=== PATIENT | male | born 1970 | race Caucasian/White ===

== ENCOUNTER 2016-08-22 05:34 | Emergency (ER) | payer OTHER ==
[2016-08-22 05:57] VITALS: TEMP 97.7
--- NOTE | 2016-08-22 06:03 | ED ---
General Adult HPI - General Chief complaint: Head Injury Stated complaint: Head Injury/IHS Time Seen by Provider: 08/22/16 05:48 Source: patient, RN notes reviewed Mode of arrival: ambulatory Limitations: no limitations - History of Present Illness Initial comments: Patient is a pleasant 45-year-old male presenting to the emergency department following head injury. Incident occurred today at work. 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 Patient states he did strike his head quite hard. Patient states he has had some blurry/double vision since that time. Patient states he does feel slightly confused and had difficulty remembering the medication that he took. No isolated area of weakness. Patient did not pass out. No vomiting. Patient does have a mild headache still. Patient states his neck was somewhat uncomfortable on the side however that is mild at this time. - Related Data Home Medications Medication Instructions Recorded Confirmed Atorvastatin Calcium [Lipitor] 20 mg PO HS 08/22/16 08/22/16 Allergies Allergy/AdvReac Type Severity Reaction Status Date / Time No Known Allergies Allergy Verified 08/22/16 05:57 Review of Systems ROS Statement: Those systems with pertinent positive or pertinent negative responses have been documented in the HPI. ROS Other: All systems not noted in ROS Statement are negative. Constitutional: Denies: fever Eyes: Reports: vision change. Denies: eye pain ENT: Denies: ear pain Respiratory: Denies: dyspnea Cardiovascular: Denies: chest pain Endocrine: Denies: fatigue Gastrointestinal: Denies: abdominal pain Genitourinary: Denies: dysuria Musculoskeletal: Denies: back pain Skin: Denies: rash Neurological: Reports: headache. 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 Absent: nystagmus ENT exam: Present: normal oropharynx Neck exam: Present: normal inspection. Absent: tenderness Respiratory exam: Present: normal lung sounds bilaterally Cardiovascular Exam: Present: regular rate, normal rhythm GI/Abdominal exam: Present: soft. Absent: tenderness Extremities exam: Present: normal inspection Neurological exam: Present: alert, CN II-XII intact. Absent: motor sensory deficit Expanded Speech: Present: fluid speech Cranial nerves: EOM's Intact: Normal, Facial Sensation: Normal Sensory exam: Upper Extremity Light Touch: Normal, Lower Extremity Light Touch: Normal Motor strength exam: RUE: 5, LUE: 5, RLE: 5, LLE: 5 Eye Response: (4) open spontaneously Motor Response: (6) obeys commands Verbal Response: (5) oriented Psychiatric exam: Present: normal affect, normal mood Skin exam: Present: normal color Course Vital Signs 08/22/16 05:40 Temperature 97.7 F Pulse Rate 69 Respiratory 18 Rate Blood Pressure 139/75 O2 Sat by Pulse 97 Oximetry Medical Decision Making - Medical Decision Making Patient reevaluated and resting comfortably sitting up in bed. Patient updated on results and need for follow-up. Patient also advised to follow-up with neurology if symptoms continue. Patient advised not to work until released by follow-up physician. - Radiology Data Radiology results: image reviewed (Computed tomography scan of the brain shows no acute process) Disposition Clinical Impression: Concussion Disposition: HOME SELF-CARE Condition: Stable Instructions: Concussion (ED) Additional Instructions: Please follow-up with industrial health services unless otherwise advised by employer. Please also follow-up with neurologist. [id number] Tylenol as needed. No work until released by follow-up physician. Return for increased pain, worsening vision, confusion weakness, loss of vision, speech problems, coordination problems, worsening symptoms or other concerns. Referrals: Jerome Cummings DO [Primary Care Provider] - 1-2 days Time of Disposition: 06:53
--- NOTE | 2016-08-22 06:42 | CT ---
EXAM: CT Head Without Intravenous Contrast. CLINICAL HISTORY: Reason: trauma TECHNIQUE: Axial computed tomography images of the head/brain without intravenous contrast. CTDI is 60.3 mGy and DLP is 1144.7 mGy-cm This CT exam was performed using one or more of the following dose reduction techniques: automated exposure control, adjustment of the mA and/or kV according to patient size, and/or use of iterative reconstruction technique. COMPARISON: No relevant prior studies available. FINDINGS: Brain: Unremarkable. No hemorrhage. No significant white matter disease. No edema. Ventricles: Unremarkable. No ventriculomegaly. Bones: No acute fracture. Sinuses: Unremarkable as visualized. No acute sinusitis. Mastoid air cells: Unremarkable as visualized. No mastoid effusion. IMPRESSION: Normal head/brain.
--- NOTE | 2016-08-22 06:56 | ED ---
Medical Decision Making - Medical Decision Making Additional paper work from [employer] filled out. Disposition Clinical Impression: Concussion Disposition: HOME SELF-CARE Condition: Stable Instructions: Concussion (ED) Additional Instructions: Please follow-up with industrial health services unless otherwise advised by employer. Please also follow-up with neurologist. [id number] Tylenol as needed. No work until released by follow-up physician. Return for increased pain, worsening vision, confusion weakness, loss of vision, speech problems, coordination problems, worsening symptoms or other concerns. Referrals: Jerome Cummings DO [Primary Care Provider] - 1-2 days Antionette Polanco MD [STAFF PHYSICIAN] - 1-2 days
[2016-08-22 07:20] VITALS: BP 139/71; PULSE 73; RESP 16
== END 2016-08-22 07:20 | disposition home or self-care (01) ==
LOC: EC 05:34
DX: S06.0X0A Concussion without loss of consciousness, initial encounter (principal); E78.5 Hyperlipidemia, unspecified; I10 Essential (primary) hypertension; F17.200 Nicotine dependence, unspecified, uncomplicated; Z79.899 Other long term (current) drug therapy; W22.09XA Striking against other stationary object, initial encounter; Y92.69 Other specified industrial and construction area as the place of occurrence of the external cause; Y99.0 Civilian activity done for income or pay
CPT/HCPCS: 70450; 99283

== ENCOUNTER 2017-05-07 16:30 | Observation (INO) | payer BC ==
[2017-05-07] MEDS ORDERED: KETOROLAC 30 MG/ML 1 ML VIAL IVP STA (17:58)
[2017-05-07] MEDS ORDERED: ASPIRIN 81 MG PO STA (17:58)
--- NOTE | 2017-05-07 18:06 | ED ---
Chest Pain HPI - General Chief Complaint: Chest Pain Stated Complaint: Chest Pain Time Seen by Provider: 05/07/17 17:46 Source: patient, RN notes reviewed Mode of arrival: wheelchair Limitations: no limitations - History of Present Illness Initial Comments: This is a 38-year-old male with a history of smoking he smokes 3 packs a day now he smokes one quarter of a pack per day who does take a daily aspirin and I was no known heart or lung disease who does have a family history her brother at the age of 62 and his family was in the 70s who states she's had chest pain which started today right sided midsternal sharp in nature it was 9/10 in severity currently is 3/10 and does tend to come and go vision states it did start when he was walking at work today. He does not recall anything he may have hurt his chest and no nausea no vomiting fevers chills sweats cough sputum production. No other constitutional symptoms. MD Complaint: chest pain - Related Data Home Medications Medication Instructions Recorded Confirmed Cetirizine HCl [Zyrtec] 10 mg PO DAILY 05/07/17 05/07/17 Divalproex ER [Depakote ER] 1,000 mg PO HS 05/07/17 05/07/17 Fluticasone Nasal [place] [Flonase 1 spray EA NOSTRIL BID 05/07/17 05/07/17 Nasal [place]] Ibuprofen [Motrin] 800 mg PO TID PRN 05/07/17 05/07/17 Lidocaine 4% Cream [Lmx 4] 1 applic TOPICAL DAILY PRN 05/07/17 05/07/17 Lisinopril-Hctz 20-25 mg 1 tab PO DAILY 05/07/17 05/07/17 [Zestoretic 20-25] Loperamide [Imodium] 2 - 4 mg PO QID PRN 05/07/17 05/07/17 Omeprazole [PriLOSEC] 40 mg PO BID 05/07/17 05/07/17 Pregabalin [Lyrica] 150 mg PO BID 05/07/17 05/07/17 Propranolol HCl [Propranolol HCl 120 mg PO DAILY 05/07/17 05/07/17 ER] Sertraline [Zoloft] 150 mg PO DAILY 05/07/17 05/07/17 Simvastatin 40 mg PO HS 05/07/17 05/07/17 Sodium Bic Otc(Unknown Dose) 2 tab PO BID 05/07/17 05/07/17 Tiotropium 18 Mcg/Puff [Spiriva] 1 cap INHALATION RT-DAILY 05/07/17 05/07/17 buPROPion HCL [Wellbutrin SR] 150 mg PO BID 05/07/17 05/07/17 traMADol HCL [Ultram] 50 mg PO Q8H PRN 05/07/17 05/07/17 Allergies Allergy/AdvReac Type Severity Reaction Status Date / Time No Known Allergies Allergy Verified 05/07/17 17:34 Review of Systems ROS Statement: Those systems with pertinent positive or pertinent negative responses have been documented in the HPI. ROS Other: All systems not noted in ROS Statement are negative. 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 History of Any Multi-Drug Resistant Organisms: None Reported Past Surgical History: Cholecystectomy Additional Past Surgical History / Comment(s): vasectomy, tubes in ears as an adult, carpel tunnel Past Psychological History: Anxiety, Depression, PTSD Smoking Status: Current every day smoker Past Alcohol Use History: Occasional Past Drug Use History: None Reported General Exam - General Exam Comments Initial Comments: This is a well-developed well-nourished awake alert oriented times 3 male Limitations: no limitations General appearance: alert, in no apparent distress Head exam: Present: atraumatic, normocephalic, normal inspection Eye exam: Present: normal appearance, PERRL, EOMI. Absent: scleral icterus, conjunctival injection, periorbital swelling ENT exam: Present: normal exam, mucous membranes moist Neck exam: Present: normal inspection. Absent: tenderness, meningismus, lymphadenopathy Respiratory exam: Present: normal lung sounds bilaterally, chest wall tenderness (Reproducible tenderness palpation along the right costochondral margin to the mid and lower anterior chest wall). Absent: respiratory distress , wheezes, rales, rhonchi, stridor Cardiovascular Exam: Present: regular rate, normal rhythm, normal heart sounds. Absent: systolic murmur, diastolic murmur, rubs, gallop, clicks GI/Abdominal exam: Present: soft, normal bowel sounds. Absent: distended, tenderness, guarding, rebound, rigid Extremities exam: Present: normal inspection, full ROM, normal capillary refill. Absent: tenderness, pedal edema, joint swelling, calf tenderness Back exam: Present: normal inspection Neurological exam: Present: alert, oriented X3, CN II-XII intact Psychiatric exam: Present: normal affect, normal mood Skin exam: Present: warm, dry, intact, normal color. Absent: rash Course Vital Signs 05/07/17 05/07/17 05/07/17 16:36 17:38 19:36 Temperature 98.2 F Pulse Rate 68 82 62 Respiratory 18 17 18 Rate Blood Pressure 129/79 134/89 142/71 O2 Sat by Pulse 98 95 97 Oximetry 05/07/17 05/07/17 19:44 21:20 Temperature Pulse Rate 70 62 Respiratory 18 18 Rate Blood Pressure 143/61 122/65 O2 Sat by Pulse 97 97 Oximetry Chest Pain MDM - MDM Patient got no relief from Toradol and from nitroglycerin were after a while he was feeling improved is reproducible pain though due to the patient's history he 'll be admitted for evaluation for chest pain. Disposition Clinical Impression: Chest pain, Chest wall syndrome Disposition: ADMITTED IP TO THIS [facility] Condition: Stable Referrals: Jerome Cummings DO [Primary Care Provider] - 1-2 days
[2017-05-07 18:26] LABS: ALT 34 U/L (21-72); AST 25 U/L (17-59); Albumin 4.1 g/dL (3.5-5.0); Alkaline Phosphatase 64 U/L (38-126); Amylase 48 U/L (30-110); Anion Gap 9 mmol/L; Blood Urea Nitrogen 13 mg/dL (9-20); Calcium 9.5 mg/dL (8.4-10.2); Carbon Dioxide 27 mmol/L (22-30); Chloride 102 mmol/L (98-107); Glucose 78 mg/dL (74-99); Lipase 85 U/L (23-300); Magnesium 1.9 mg/dL (1.6-2.3); Potassium 4.4 mmol/L (3.5-5.1); Sodium 138 mmol/L (137-145); Total Bilirubin 0.3 mg/dL (0.2-1.3)
[2017-05-07 18:30] LABS: Creatine Kinase 54 U/L (55-170)
[2017-05-07 18:31] LABS: Basophils % (A) 1 %; Eosinophils % (A) 2 %; HCT 40.6 % (39.0-53.0); HGB 14.4 gm/dL (13.0-17.5); Lymphocytes % (A) 46 %; MCH 30.8 pg (25.0-35.0); MCHC 35.5 g/dL (31.0-37.0); MCV 86.6 fL (80.0-100.0); Mean Platelet Volume 6.8; Monocytes % (A) 6 %; Neutrophils # (A) 2.8 k/uL (1.3-7.7); Neutrophils % (A) 43 %; Platelet Count 241 k/uL (150-450); RBC 4.69 m/uL (4.30-5.90); RDW 12.8 % (11.5-15.5); WBC 6.6 k/uL (3.8-10.6)
[2017-05-07 18:32] LABS: Basophils # (A) 0.1 k/uL (0-0.2); D-Dimer 0.49 mg/L FEU (<0.60); Eosinophils # (A) 0.1 k/uL (0-0.7); Monocytes # (A) 0.4 k/uL (0-1.0); Partial Thromboplastin Time 25.7 sec (22.0-30.0); Prothrombin Time 10.1 sec (9.0-12.0)
[2017-05-07 18:43] LABS: Creatine Kinase MB <0.2 ng/mL (0.0-2.4); Troponin I <0.012 ng/mL (0.000-0.034)
--- NOTE | 2017-05-07 18:48 | XR ---
EXAMINATION TYPE: XR chest 2V DATE OF EXAM: 05/07/2017 COMPARISON: NONE HISTORY: Chest pain TECHNIQUE: Frontal and lateral views of the chest are obtained. FINDINGS: Heart and mediastinum are normal. There are small linear density at the left lung base. Th e other lung gold are clear. There are chest leads. Bony thorax is intact. IMPRESSION: Scarring or subsegmental atelectasis at the left lung base. Normal heart.
[2017-05-07] MEDS ORDERED: NITROGLYCERIN SL TABS 0.4 MG TAB SUBLINGUAL PRN ×2 (19:27→22:14)
[2017-05-07] MEDS ORDERED: HEPARIN SODIUM,PORCINE 5,000 UNIT/ML 1 ML VIAL IV ONE (22:14)
[2017-05-07] MEDS ORDERED: HEPARIN SOD,PORK IN 0.45% NACL 25,000 UNIT in 0.45% NACL 1 500ML.BAG IV SCH (22:15)
[2017-05-07] MEDS ORDERED: IBUPROFEN 800 MG TAB PO PRN (22:17)
[2017-05-07] MEDS ORDERED: traMADol 50 MG TAB PO PRN (22:17)
[2017-05-07] MEDS ORDERED: LIDOCAINE 4% CREAM 5 GM TUBE TOPICAL PRN (22:17)
[2017-05-07] MEDS: SODIUM CHLORIDE 0.9% 1,000 ML IV SCH (23:01)
[2017-05-08 00:59] LABS: Creatine Kinase 46 U/L (55-170)
[2017-05-08 01:12] LABS: Creatine Kinase MB <0.2 ng/mL (0.0-2.4); Troponin I <0.012 ng/mL (0.000-0.034)
[2017-05-08 06:06] LABS: Cholesterol 224 mg/dL (<200); HDL Cholesterol 29 mg/dL (40-60)
[2017-05-08 06:16] LABS: Creatine Kinase 42 U/L (55-170)
[2017-05-08 06:30] LABS: Creatine Kinase MB <0.2 ng/mL (0.0-2.4); Troponin I <0.012 ng/mL (0.000-0.034)
[2017-05-08 06:38] LABS: Triglycerides 837 mg/dL (<150)
[2017-05-08] MEDS: LISINOPRIL-HCTZ 20-25 MG 1 EACH TAB PO SCH (08:23)
[2017-05-08] MEDS: buPROPion SR 150 MG TABLET.ER PO SCH ×2 (08:23→20:08)
[2017-05-08] MEDS: PROPRANOLOL LA 60 MG CAP.SA.24H PO SCH (08:24)
[2017-05-08] MEDS: LORATADINE 10 MG TAB PO SCH (08:24)
[2017-05-08] MEDS: PANTOPRAZOLE 40 MG TABLET PO SCH ×2 (08:24→20:08)
[2017-05-08] MEDS: SERTRALINE 50 MG TAB PO SCH (08:24)
[2017-05-08] MEDS: [UNRECOGNIZED DRUG - OTHER] PO SCH ×2 (08:32→20:12)
[2017-05-08] MEDS: FLUTICASONE 50MCG/SPRAY NASAL 16GM EA NOSTRIL SCH ×2 (08:32→20:12)
[2017-05-08] MEDS: PREGABALIN 75 MG CAP PO SCH ×2 (08:58→20:08)
[2017-05-08] MEDS ORDERED: ASPIRIN 325 MG TAB PO SCH (09:00)
[2017-05-08] MEDS: IPRATROPIUM 0.5 MG/2.5 ML NEBU INHALATION SCH ×4 (09:06→21:33)
--- NOTE | 2017-05-08 14:32 | P.CRDCN ---
History of Present Illness Consult date: 05/08/17 History of present illness: Mr. Campbell is a pleasant 46-year-old male past medical history significant for hypertension, COPD, dyslipidemia, diabetes mellitus, gastroesophageal reflux disease, chronic tobacco use and morbid obesity. He has significant family history of heart disease with his father, and 2 brothers from heart disease. He denies personal history of CAD. He states he underwent cardiac catheterization in 2005 that was essentially normal with no angioplasty required at that time. Yesterday while at work he walked in from outside, sat down at the desk and had an acute sharp/stabbing pain to the right anterior chest/upper abdomen with no radiation to arm, back, neck or jaw. He had shortness of breath and was mildly light headed as well. He denies associated palpitations, nausea, vomiting or diaphoresis. On exam he is tender to the right upper quadrant of his abdomen and the pain is reproducible to the chest. He had his gallbladder removed. He can specify no aggravating or alleviating factors. The pain persisted until he came to the hospital and is still going on intermittently. EKG on arrival reveals sinus mechanism with no acute ST or T-wave abnormalities. Chest xray reveals no acute cardiopulmonary process with atelectasis at the left lung base. He complains of chronic dry cough. Laboratory data reviewed, hemoglobin 14.4, platelets 241, d-dimer negative, potassium 4.4, magnesium 1.9, creatinine 0.7, cardiac enzymes negative 3. Lipid panel unable to be calculated secondary to triglycerides being 837. Patient states he is noncompliant with his atorvastatin. Current cardiac medications include simvastatin 40 mg daily, propanolol 100 mg daily and lisinopril/HCTZ 20/25 mg daily. Review of Systems At the time my exam: CONSTITUTIONAL: Denies fever. Denies chills. EYES: Denies blurred vision. Denies vision changes. Denies eye pain. EARS, NOSE, MOUTH & THROAT: Denies headache. Denies sore throat. Denies ear pain. CARDIOVASCULAR: Complains of right anterior chest pain. Denies shortness of breath. Denies orthopnea. Denies PND. Denies palpitations. RESPIRATORY: Denies cough. GASTROINTESTINAL: Complains of right upper quadrant abdominal pain. Denies diarrhea. Denies constipation. Denies nausea. Denies vomiting. MUSCULOSKELETAL: Denies myalgias. INTEGUMENTARY: Denies pruitis. Denies rash. NEUROLOGIC: Denies numbness. Denies tingling. Denies weakness. PSYCHIATRIC: Denies anxiety. Denies depression. ENDOCRINE: Denies fatigue. Denies weight change. Denies polydipsia. Denies polyurina. GENITOURINARY: Denies burning, hematuria or urgency with micturation. HEMATOLOGIC: Denies history of anemia. Denies bleeding. 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 History of Any Multi-Drug Resistant Organisms: None Reported Past Surgical History: Cholecystectomy, Ear Surgery, Heart Catheterization, Orthopedic Surgery Additional Past Surgical History / Comment(s): 2006 cardiac cath-treated with medication, bilateral myringotomy/tubes which have fallen out, L carpal tunnel release, vasectomy.l Past Anesthesia/Blood Transfusion Reactions: No Reported Reaction Smoking Status: Current every day smoker - Past Family History Father Family Medical History: Coronary Artery Disease (CAD), Myocardial Infarction (SC ) Additional Family Medical History / Comment(s): Father at the age of 78yrs from his AICD/pacer failing. He had had a SC at the age of 72yrs. Mother Family Medical History: COPD, Respiratory Disorder Additional Family Medical History / Comment(s): Mother had severe COPD. She was a heavy smoker. She used home oxygen. She at the age of 88yrs. Medications and Allergies Home Medications Medication Instructions Recorded Confirmed Type Cetirizine HCl [Zyrtec] 10 mg PO DAILY 05/07/17 05/07/17 History Divalproex ER [Depakote ER] 1,000 mg PO HS 05/07/17 05/07/17 History Fluticasone Nasal [place] [Flonase 1 spray EA NOSTRIL BID 05/07/17 05/07/17 History Nasal [place]] Ibuprofen [Motrin] 800 mg PO TID PRN 05/07/17 05/07/17 History Lidocaine 4% Cream [Lmx 4] 1 applic TOPICAL DAILY PRN 05/07/17 05/07/17 History Lisinopril-Hctz 20-25 mg 1 tab PO DAILY 05/07/17 05/07/17 History [Zestoretic 20-25] Loperamide [Imodium] 2 - 4 mg PO QID PRN 05/07/17 05/07/17 History Omeprazole [PriLOSEC] 40 mg PO BID 05/07/17 05/07/17 History Pregabalin [Lyrica] 150 mg PO BID 05/07/17 05/07/17 History Propranolol HCl [Propranolol HCl 120 mg PO DAILY 05/07/17 05/07/17 History ER] Sertraline [Zoloft] 150 mg PO DAILY 05/07/17 05/07/17 History Simvastatin 40 mg PO HS 05/07/17 05/07/17 History Sodium Bic Otc(Unknown Dose) 2 tab PO BID 05/07/17 05/07/17 History Tiotropium 18 Mcg/Puff [Spiriva] 1 cap INHALATION RT-DAILY 05/07/17 05/07/17 History buPROPion HCL [Wellbutrin SR] 150 mg PO BID 05/07/17 05/07/17 History traMADol HCL [Ultram] 50 mg PO Q8H PRN 05/07/17 05/07/17 History Allergies Allergy/AdvReac Type Severity Reaction Status Date / Time No Known Allergies Allergy Verified 05/07/17 17:34 Physical Exam Vitals: Vital Signs Temp Pulse Resp BP Pulse Ox 05/08/17 09:14 65 05/08/17 09:08 63 05/08/17 08:15 63 16 125/60 95 05/08/17 06:42 62 20 119/61 94 L 05/08/17 03:00 60 18 104/69 93 L 05/07/17 23:05 67 18 131/66 97 05/07/17 21:20 62 18 122/65 97 05/07/17 19:44 70 18 143/61 97 05/07/17 19:36 62 18 142/71 97 05/07/17 17:38 82 17 134/89 95 05/07/17 16:36 98.2 F 68 18 129/79 98 Intake and Output 05/07/17 05/08/17 05/08/17 22:59 06:59 14:59 Intake Total 187.535 Balance 187.535 Intake: Intake, IV Titration 187.535 Amount Heparin Sod,Pork in 0.45% 187.535 NaCl 25,000 unit In 0.45 % NaCl 1 500ml.bag @ 8.4 UNITS/KG/HR 19.81 mls/hr IV .Q24H [facility] Rx#: [id number] Other: Weight 117.934 kg Blood pressure 125/60 heart rate 63 afebrile GENERAL: This is a 46-year-old male in no apparent distress at the time of my examination. Obese. HEENT: Head is atraumatic, normocephalic. Pupils are equal, round. Sclerae anicteric. Conjunctivae are clear. Mucous membranes of the mouth are moist. Neck is supple. There is no jugular venous distention. No carotid bruit is heard. LUNGS: Clear to auscultation no wheezes, rales or rhonchi. No chest wall tenderness is noted on palpation or with deep breathing. HEART: Regular rate and rhythm without murmurs, rubs or gallops. S1 and S2 heard. ABDOMEN: Soft, nontender. Bowel sounds are heard. No organomegaly noted. EXTREMITIES: Trace less than 1+ bilateral edema and no calf tenderness noted. VASCULAR: Radial and dorsalis pedis pulses palpated, no evidence of clubbing. NEUROLOGIC: Patient is awake, alert and oriented x3. Results 05/07/17 17:45 05/07/17 17:45 Cardiac Enzymes 05/07/17 05/07/17 05/07/17 Range/Units 17:45 17:45 23:54 AST 25 (17-59) U/L CK-MB (CK-2) <0.2 <0.2 (0.0-2.4) ng/mL Troponin I <0.012 <0.012 (0.000-0.034) ng/mL 05/08/17 Range/Units 05:20 AST (17-59) U/L CK-MB (CK-2) <0.2 (0.0-2.4) ng/mL Troponin I <0.012 (0.000-0.034) ng/mL Coagulation 05/07/17 05/08/17 Range/Units 17:45 07:32 PT 10.1 (9.0-12.0) sec APTT 25.7 31.6 H (22.0-30.0) sec Lipids 05/08/17 Range/Units 05:20 Triglycerides 837 H (<150) mg/dL Cholesterol 224 H (<200) mg/dL HDL Cholesterol 29 L (40-60) mg/dL CBC 05/07/17 Range/Units 17:45 WBC 6.6 (3.8-10.6) k/uL RBC 4.69 (4.30-5.90) m/uL Hgb 14.4 (13.0-17.5) gm/dL Hct 40.6 (39.0-53.0) % Plt Count 241 (150-450) k/uL Comprehensive Metabolic Panel 05/07/17 Range/Units 17:45 Sodium 138 (137-145) mmol/L Potassium 4.4 (3.5-5.1) mmol/L Chloride 102 (98-107) mmol/L Carbon Dioxide 27 (22-30) mmol/L BUN 13 (9-20) mg/dL Creatinine 0.70 (0.66-1.25) mg/dL Glucose 78 (74-99) mg/dL Calcium 9.5 (8.4-10.2) mg/dL AST 25 (17-59) U/L ALT 34 (21-72) U/L Alkaline Phosphatase 64 (38-126) U/L Total Protein 7.0 (6.3-8.2) g/dL Albumin 4.1 (3.5-5.0) g/dL Current Medications Generic Name Dose Route Start Last Admin Trade Name Freq PRN Reason Stop Dose Admin Aspirin 325 mg 05/08/17 09:00 05/08/17 08:32 Aspirin PO 325 mg DAILY DASHAWN Administration Atorvastatin Calcium 20 mg 05/08/17 21:00 Lipitor PO HS [facility] Bupropion HCl 150 mg 05/08/17 09:00 05/08/17 08:23 Wellbutrin Sr PO 150 mg BID DASHAWN Administration Divalproex Sodium 1,000 mg 05/08/17 21:00 Depakote Er PO HS [facility] Fluticasone Propionate 1 spray 05/08/17 09:00 05/08/17 08:32 Flonase Nasal [place] EA NOSTRIL 1 spray BID DASHAWN Administration Lisinopril/HCTZ 1 each 05/08/17 09:00 05/08/17 08:23 Zestoretic 20-25 PO 1 each DAILY DASHAWN Administration Heparin Sodium/Sodium Chloride 500 mls @ 19.81 mls/hr 05/07/17 22:15 08:26 25,000 unit/ Sodium Chloride IV 11.4 units/kg/hr .Q24H DASHAWN 26.88 mls/hr Protocol Titration 8.4 UNITS/KG/HR Sodium Chloride 1,000 mls @ 20 mls/hr 05/07/17 22:15 05/07/17 23:01 Saline 0.9% IV 20 mls/hr .Q24H DASHAWN Administration Ibuprofen 800 mg 05/07/17 22:17 Motrin PO TID PRN Pain Ipratropium [place] 0.5 mg 05/08/17 08:00 05/08/17 09:06 Atrovent Nebulized INHALATION 0.5 mg RT-QID [facility] Administration Lidocaine HCl 1 applic 05/07/17 22:17 Lmx 4 TOPICAL DAILY PRN Pain Loratadine 10 mg 05/08/17 09:00 05/08/17 08:24 Claritin PO 10 mg DAILY DASHAWN Administration Nitroglycerin 0.4 mg 05/07/17 19:27 05/07/17 19:36 Nitrostat SUBLINGUAL 0.4 mg Q5M PRN Administration Chest Pain Nitroglycerin 0.4 mg 05/07/17 22:14 Nitrostat SUBLINGUAL Q5M PRN Chest Pain Non-Formulary Medication 2 tab 05/08/17 09:00 05/08/17 08:32 Sodium Bic Otc(Unknown Dose) PO Not Given BID [facility] Pantoprazole Sodium 40 mg 05/08/17 09:00 05/08/17 08:24 Protonix PO 40 mg BID DASHAWN Administration Pregabalin 150 mg 05/08/17 09:00 05/08/17 08:58 Lyrica PO 150 mg BID [facility] Administration Propranolol HCl 120 mg 05/08/17 09:00 05/08/17 08:24 Inderal [place] PO 120 mg DAILY DASHAWN Administration Sertraline HCl 150 mg 05/08/17 09:00 05/08/17 08:24 Zoloft PO 150 mg DAILY [facility] Administration Tramadol HCl 50 mg 05/07/17 22:17 Ultram PO Q8H PRN Pain Intake and Output 05/07/17 05/08/17 05/08/17 22:59 06:59 14:59 Intake Total 187.535 Balance 187.535 Intake: Intake, IV Titration 187.535 Amount Heparin Sod,Pork in 0.45% 187.535 NaCl 25,000 unit In 0.45 % NaCl 1 500ml.bag @ 8.4 UNITS/KG/HR 19.81 mls/hr IV .Q24H [facility] Rx#: [id number] Other: Weight 117.934 kg 05/07/17 17:45 05/07/17 17:45 Assessment and Plan Assessment: ASSESSMENT 1. Chest pain, atypical with components of abdominal pain. No EKG evidence of ischemia and negative cardiac enzymes 3. 2. Hypertension 3. Dyslipidemia, non-compliant 4. Diabetes mellitus 5. Chronic tobacco use 6. Obesity 7. Strong family history of heart disease PLAN Obtain 2D echocardiogram and doppler study to assess cardiac structure and function. Obtain ultrasound of abdomen. Would like to proceed with Lexiscan stress test, however the patient was fed a full breakfast 1 hour ago. NPO after midnight tonight. Further recommendations to follow. Nurse Practitioner note has been reviewed, I agree with a documented findings and plan of care. Patient was seen and examined.
--- NOTE | 2017-05-08 15:22 | US ---
EXAMINATION TYPE: US abdomen complete DATE OF EXAM: 05/08/2017 COMPARISON: NONE CLINICAL HISTORY: right upper quad abd pain. EXAM MEASUREMENTS: Liver Length: 17.5 cm Gallbladder Wall: Surgically absent cm CBD: 0.7 cm Spleen: 14.1 cm Right Kidney: 12.3 x 6.4 x 7.1 cm Left Kidney: 12.9 x 7.3 x 6.3 cm Patient of large body habitus. Pancreas: body and tail obscured by overlying bowel gas Liver: Increased attenuation, enlarged Gallbladder: Surgically absent Evidence for sonographic Mensah's sign: No CBD: wnl Spleen: scattered echogenic foci throughout, measures large Right Kidney: stone measuring 0.6 x 0.5 x 0.7cm, measures large Left Kidney: No hydronephrosis or masses seen, measures large Upper IVC: wnl Abd Aorta: mostly obscured by overlying bowel gas, portions visualized wnl IMPRESSION: 1. Nonobstructing nephrolithiasis. 2. Splenic granulomas. 3. Hepatomegaly.
--- NOTE | 2017-05-08 18:19 | ECHOF ---
Referral Reason:chest pain MEASUREMENTS -------- HEIGHT: 172.7 cm WEIGHT: 117.9 kg BP: 119/61 IVSd: 1.6 cm (0.6 - 1.1) LVIDd: 4.1 cm (3.9 - 5.3) LVPWd: 1.5 cm (0.6 - 1.1) IVSs: 1.8 cm LVIDs: 1.9 cm LVPWs: 1.9 cm Ao Diam: 3.2 cm (2.0 - 3.7) AV Cusp: 1.9 cm (1.5 - 2.6) LA Diam: 2.7 cm (2.7 - 3.8) MV EXCURSION: 15.857 mm (> 18.000) MV EF SLOPE: 87 mm/s (70 - 150) EPSS: 1.4 cm MV E Jabier: 0.61 m/s MV DecT: 264 ms MV A Jabier: 0.51 m/s MV E/A Ratio: 1.19 RAP: 5.00 mmHg RVSP: 12.51 mmHg FINDINGS -------- Sinus rhythm. This was a technically difficult study with suboptimal views. The left ventricular size is normal. There is severe concentric left ventricular hypertrophy. Ove rall left ventricular systolic function is normal with, an EF between 55 - 60 %. The right ventricle is normal in size and function. The left atrium is normal in size. The right atrium is normal in size. The aortic valve is trileaflet, and appears structurally normal. No aortic stenosis or regurgitation. There is trace mitral regurgitation. Trace tricuspid regurgitation present. The right ventricular systolic pressure, as measured by Dopp ler, is 12.51mmHg. Pulmonic valve appears structurally normal. The aortic root size is normal. The pericardium is normal. CONCLUSIONS -------- 1. Sinus rhythm. 2. This was a technically difficult study with suboptimal views. 3. The left ventricular size is normal. 4. There is severe concentric left ventricular hypertrophy. 5. Overall left ventricular systolic function is normal with, an EF between 55 - 60 %. 6. The right ventricle is normal in size and function. 7. The left atrium is normal in size. 8. The right atrium is normal in size. 9. Lumason used 10. The aortic valve is trileaflet, and appears structurally normal. No aortic stenosis or regurgitat ion. 11. There is trace mitral regurgitation. 12. Trace tricuspid regurgitation present. 13. The right ventricular systolic pressure, as measured by Doppler, is 12.51mmHg. 14. Pulmonic valve appears structurally normal. 15. The aortic root size is normal. 16. The pericardium is normal. [employer] TECHNICIAN: Gisela Brown RDCS
[2017-05-08] MEDS ORDERED: ALPRAZolam 0.25 MG TAB PO STA (19:49)
[2017-05-08] MEDS ORDERED: DIVALPROEX ER 500 MG TAB.ER.24H PO SCH (21:00)
[2017-05-08] MEDS ORDERED: ATORVASTATIN 20 MG TAB PO SCH (21:00)
--- NOTE | 2017-05-08 22:33 | P.HPIM ---
History of Present Illness H&P Date: 05/08/17 Chief Complaint: Chest pain Mr. Campbell is a pleasant 46-year-old male came to ER with complaints of chest pain right lower sharp chest started yesterday on and off lasting about 15--20 minutes. Denied any radiation of the pain. Her surgery with mild shortness of breath.. Denied any nausea vomiting, diaphoresis or dizziness or lightheadedness. No orthopnea no PND. No aggravating or relieving factors. Patient does have left carpal tunnel release surgery in January 2017 since then he is on light duty. Patient has a past medical history significant for hypertension, COPD, dyslipidemia, diabetes mellitus, gastroesophageal reflux disease, chronic tobacco use and morbid obesity. He has significant family history of heart disease with his father, and 2 brothers from heart disease. He denies personal history of CAD. He states he underwent cardiac catheterization in 2005 that was essentially normal with no angioplasty required at that time. EKG on arrival reveals sinus mechanism with no acute ST or T-wave abnormalities. Chest xray reveals no acute cardiopulmonary process with atelectasis at the left lung base. He complains of chronic dry cough. Troponin 3 negative, d-dimer not elevated triglycerides 837. Review of Systems Constitutional: Patient denies any fever or chills . No generalized weakness or weight loss. Abdomen: Patient denied nausea vomiting and diarrhea and abdominal pain. Cardiovascular: Patient denies any chest pain or short of breath no palpitations. Respiratory: patient denied any cough is from production. No shortness of breath Neurologic: Patient denied any numbness or tingling headache. Musculoskeletal: Patient denies any complaints of joint swelling or deformity. Skin: Negative Psychiatric: Negative Endocrine: No heat or cold intolerance. No recent weight gain. Genitourinary: No dysuria or hematuria. 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 History of Any Multi-Drug Resistant Organisms: None Reported Past Surgical History: Cholecystectomy, Ear Surgery, Heart Catheterization, Orthopedic Surgery Additional Past Surgical History / Comment(s): 2006 cardiac cath-treated with medication, bilateral myringotomy/tubes which have fallen out, L carpal tunnel release, vasectomy.l Past Anesthesia/Blood Transfusion Reactions: No Reported Reaction Smoking Status: Current every day smoker - Past Family History Father Family Medical History: Coronary Artery Disease (CAD), Myocardial Infarction (PR ) Additional Family Medical History / Comment(s): Father at the age of 78yrs from his AICD/pacer failing. He had had a PR at the age of 72yrs. Mother Family Medical History: COPD, Respiratory Disorder Additional Family Medical History / Comment(s): Mother had severe COPD. She was a heavy smoker. She used home oxygen. She at the age of 88yrs. Medications and Allergies Home Medications Medication Instructions Recorded Confirmed Type Cetirizine HCl [Zyrtec] 10 mg PO DAILY 05/07/17 05/07/17 History Divalproex ER [Depakote ER] 1,000 mg PO HS 05/07/17 05/07/17 History Fluticasone Nasal Pledger [Flonase 1 spray EA NOSTRIL BID 05/07/17 05/07/17 History Nasal Pledger] Ibuprofen [Motrin] 800 mg PO TID PRN 05/07/17 05/07/17 History Lidocaine 4% Cream [Lmx 4] 1 applic TOPICAL DAILY PRN 05/07/17 05/07/17 History Lisinopril-Hctz 20-25 mg 1 tab PO DAILY 05/07/17 05/07/17 History [Zestoretic 20-25] Loperamide [Imodium] 2 - 4 mg PO QID PRN 05/07/17 05/07/17 History Omeprazole [PriLOSEC] 40 mg PO BID 05/07/17 05/07/17 History Pregabalin [Lyrica] 150 mg PO BID 05/07/17 05/07/17 History Propranolol HCl [Propranolol HCl 120 mg PO DAILY 05/07/17 05/07/17 History ER] Sertraline [Zoloft] 150 mg PO DAILY 05/07/17 05/07/17 History Simvastatin 40 mg PO HS 05/07/17 05/07/17 History Sodium Bic Otc(Unknown Dose) 2 tab PO BID 05/07/17 05/07/17 History Tiotropium 18 Mcg/Puff [Spiriva] 1 cap INHALATION RT-DAILY 05/07/17 05/07/17 History buPROPion HCL [Wellbutrin SR] 150 mg PO BID 05/07/17 05/07/17 History traMADol HCL [Ultram] 50 mg PO Q8H PRN 05/07/17 05/07/17 History Allergies Allergy/AdvReac Type Severity Reaction Status Date / Time No Known Allergies Allergy Verified 05/07/17 17:34 Physical Exam Vitals: Vital Signs Temp Pulse Resp BP Pulse Ox 05/08/17 12:34 65 05/08/17 11:33 67 18 123/59 97 05/08/17 09:14 65 05/08/17 09:08 63 05/08/17 08:15 63 16 125/60 95 05/08/17 06:42 62 20 119/61 94 L 05/08/17 03:00 60 18 104/69 93 L 05/07/17 23:05 67 18 131/66 97 05/07/17 21:20 62 18 122/65 97 05/07/17 19:44 70 18 143/61 97 05/07/17 19:36 62 18 142/71 97 05/07/17 17:38 82 17 134/89 95 05/07/17 16:36 98.2 F 68 18 129/79 98 Intake and Output 05/07/17 05/08/17 05/08/17 22:59 06:59 14:59 Intake Total 187.535 Balance 187.535 Intake: Intake, IV Titration 187.535 Amount Heparin Sod,Pork in 0.45% 187.535 NaCl 25,000 unit In 0.45 % NaCl 1 500ml.bag @ 8.4 UNITS/KG/HR 19.81 mls/hr IV .Q24H [facility] Rx#: [id number] Other: Weight 117.934 kg PHYSICAL EXAMINATION: Patient is lying in the bed comfortably, no acute distress, awake alert and oriented.. HEENT: Normocephalic. Neck is supple. Pupils reactive. Nostrils clear. Oral cavity is moist. Ears reveal no drainage. Neck reveals no JVD, carotid bruits, or thyromegaly. CHEST EXAMINATION: Trachea is central. Symmetrical expansion. Lung gold clear to auscultation and percussion. CARDIAC: Normal S1, S2 with no gallops. No murmurs ABDOMEN: Soft. Bowel sounds normal. No organomegaly. No abdominal bruits. Extremities: reveal no edema. No clubbing or cyanosis Neurologically awake, alert, oriented x3 with well-coordinated movements. No focal deficits noted Skin: No rash or skin lesions. Psychiatric: Coperative. Nonsuicidal Musculoskeletal: No joint swelling or deformity. Normal range of motion. Results CBC & Chem 7: 05/07/17 17:45 05/07/17 17:45 Labs: Abnormal Lab Results - Last 24 Hours (Table) 05/07/17 05/07/17 05/08/17 Range/Units 17:45 23:54 05:20 APTT (22.0-30.0) sec Total Creatine Kinase 54 L 46 L 42 L (55-170) U/L Triglycerides (<150) mg/dL Cholesterol (<200) mg/dL HDL Cholesterol (40-60) mg/dL 05/08/17 05/08/17 Range/Units 05:20 07:32 APTT 31.6 H (22.0-30.0) sec Total Creatine Kinase (55-170) U/L Triglycerides 837 H (<150) mg/dL Cholesterol 224 H (<200) mg/dL HDL Cholesterol 29 L (40-60) mg/dL Thrombosis Risk Factor Assmnt - DVT/VTE Prophylaxis DVT/VTE Prophylaxis: Pharmacologic Prophylaxis ordered - Choose All That Apply Any of the Below Risk Factors Present?: Yes Each Factor Represents 1 point: Abnormal pulmonary function (COPD), Age 41-60 years, Obesity (BMI >25) Other Risk Factors: No Other congenital or acquired thrombophilia - If yes, enter type in comment: No Thrombosis Risk Factor Assessment Total Risk Factor Score: 3 Thrombosis Risk Factor Assessment Level: Moderate Risk Assessment and Plan Assessment: Atypical chest pain. Mainly right sided. Rule out acute coronary syndrome Hypertension Hyperlipidemia Hypertriglyceridemia Osteoarthritis Number arthritis Obstructive sleep apnea on CPAP Left carpal tunnel release surgery Family history of coronary artery disease Currently everyday smoker Morbid obesity with BMI 39.5 plan: Patient will be continued on telemetry monitoring. Serial EKG and troponin. Cardiology is planning for stress test tomorrow. We will continue the home medications and further recommendations based on the clinical course. Time with Patient: Greater than 30
[2017-05-09] MEDS: SODIUM CHLORIDE 0.9% 1,000 ML IV SCH (07:49)
[2017-05-09] MEDS: IPRATROPIUM 0.5 MG/2.5 ML NEBU INHALATION SCH ×2 (07:55→11:51)
[2017-05-09] MEDS ORDERED: REGADENOSON 0.4 MG/5 ML SYRINGE IV ONE (07:57)
[2017-05-09] MEDS ORDERED: AMINOPHYLLINE 500 MG/20 ML VIAL IV PRN (07:57)
[2017-05-09 07:58] VITALS: RESP 18
[2017-05-09] MEDS ORDERED: ASPIRIN 81 MG PO SCH (09:00)
[2017-05-09] MEDS: PREGABALIN 75 MG CAP PO SCH (10:34)
[2017-05-09] MEDS: SERTRALINE 50 MG TAB PO SCH (10:34)
[2017-05-09] MEDS: LISINOPRIL-HCTZ 20-25 MG 1 EACH TAB PO SCH (10:34)
[2017-05-09] MEDS: PANTOPRAZOLE 40 MG TABLET PO SCH (10:34)
[2017-05-09] MEDS: PROPRANOLOL LA 60 MG CAP.SA.24H PO SCH (10:34)
[2017-05-09] MEDS: buPROPion SR 150 MG TABLET.ER PO SCH (10:35)
[2017-05-09] MEDS: LORATADINE 10 MG TAB PO SCH (10:35)
--- NOTE | 2017-05-09 10:51 | P.STRESS ---
- Stress Test Note Stress Test Results/Findings: Exam Performed: NM stress lexiscan cardiolite Exam Date: 05/09/17 Reason for Exam: Chest Pain Height: 5 ft 8 in Weight: 117.934 kg Protocol: Dahlia Scan Stage: na Duration of Exercise: na Resting Heart Rate: 58 Resting Blood Pressure: 109/65 Maximum Achieved Heart Rate: 79 Maximum Achieved Blood Pressure: 126/66 85% PMHR: na 100% PMHR: na METS: na Technologist Comment: Stress Test Results/Findings: This is a 46-year-old male who was admitted to the hospital with complaints of chest pain. Patient has history of hypertension, hypercholesteremia, and smoking history. His EKGs and cardiac enzymes were negative. Baseline EKG showed a sinus rhythm with normal DE interval and QRS duration. A standard dose of Lexiscan was infused. EKGs taken during and after infusion did not reveal any changes to suggest ischemia. Final impression #1. Negative Lexiscan stress test #2. Report on the nuclear images to be given by the radiologist.
[2017-05-09] MEDS: [UNRECOGNIZED DRUG - OTHER] PO SCH (11:01)
[2017-05-09] MEDS: FLUTICASONE 50MCG/SPRAY NASAL 16GM EA NOSTRIL SCH (11:53)
[2017-05-09 11:58] VITALS: BP 138/58; PULSE 65; TEMP 97.7
--- NOTE | 2017-05-09 12:23 | NM ---
EXAMINATION TYPE: NM stress lexiscan cardiolite DATE OF EXAM: 05/09/2017 COMPARISON: NONE HISTORY: Chest pain TECHNIQUE: After the intravenous administration of 10.8 mCi Tc 99m Sestamibi - Cardiolite resting SP ECT images acquired 45 minutes post injection. The patient received 0.4mg Lexiscan, 27.3 mCi Tc 99m Sestamibi - Stress images obtained [address] injection FINDINGS: No fixed or reversible perfusion defects are evident. There is some dyskinesia of the inferior wall n ear the cardiac apex. The ejection fraction of 60% remains within normal limits IMPRESSION: 1. No stress-induced ischemic change. 2. Some dyskinesia of the inferior wall near the apex. Ejection fraction remains normal at 60%
--- NOTE | 2017-05-09 13:19 | P.PN ---
Subjective Progress Note Date: 05/09/17 Mr. Campbell is seen today in follow-up. He is resting comfortably in the bed in no acute distress. He denies any further symptoms of chest pain since admission. Ultrasound of the abdomen yesterday revealed enlarged liver, non- obstructing nephrolithiasis and splenic granulomas. CBD no disease. Vital signs have remained stable. Echocardiogram reviewed, preserved left ventricular systolic function with ejection fraction 55-60%, trace MR and trace TR. Objective - Vital Signs Vital signs: Vital Signs Temp 97.7 F 05/09/17 11:53 Pulse 65 05/09/17 11:53 Resp 18 05/09/17 11:53 BP 138/58 05/09/17 11:53 Pulse Ox 96 05/09/17 11:53 Intake & Output 05/08/17 05/09/17 05/09/17 18:59 06:59 18:59 Intake Total 423.535 Balance 423.535 Intake: Intake, IV Titration 187.535 Amount Heparin Sod,Pork in 0.45% 187.535 NaCl 25,000 unit In 0.45 % NaCl 1 500ml.bag @ 8.4 UNITS/KG/HR 19.81 mls/hr IV .Q24H [facility] Rx#: [id number] Oral 236 Other: Voiding Method Toilet Toilet Toilet # Voids 3 - Exam Blood pressure 146/71 heart rate 61 afebrile GENERAL: Well-appearing, well-nourished and in no acute distress. Obese. NECK: Supple without JVD or thyromegaly. LUNGS: Breath sounds clear to auscultation bilaterally. Respiration equal and unlabored. No wheezes, rales or rhonchi. HEART: Regular rate and rhythm without murmurs, rubs or gallops. S1 and S2 heard. EXTREMITIES: Normal range of motion, trace edema b/l. No clubbing or cyanosis. Peripheral pulses intact. - Labs CBC & Chem 7: 05/07/17 17:45 05/07/17 17:45 Labs: Abnormal Lab Results - Last 24 Hours (Table) 05/08/17 Range/Units 13:33 APTT 33.8 H (22.0-30.0) sec Assessment and Plan Assessment: ASSESSMENT 1. Chest pain, atypical with components of abdominal pain. No EKG evidence of ischemia and negative cardiac enzymes 3. 2. Hypertension 3. Dyslipidemia, non-compliant 4. Diabetes mellitus 5. Chronic tobacco use 6. Obesity 7. Strong family history of heart disease PLAN Proceed with Lexiscan stress test. If negative he is stable from a cardiac perspective. Nurse Practitioner note has been reviewed, I agree with a documented findings and plan of care. Patient was seen and examined.
--- NOTE | 2017-05-10 09:20 | EST ---
- Stress Test Note Stress Test Results/Findings: Exam Performed: NM stress lexiscan cardiolite Exam Date: 05/09/17 Reason for Exam: Chest Pain Height: 5 ft 8 in Weight: 117.934 kg Protocol: Dahlia Scan Stage: na Duration of Exercise: na Resting Heart Rate: 58 Resting Blood Pressure: 109/65 Maximum Achieved Heart Rate: 79 Maximum Achieved Blood Pressure: 126/66 85% PMHR: na 100% PMHR: na METS: na Technologist Comment: Stress Test Results/Findings: This is a 46-year-old male who was admitted to the hospital with complaints of chest pain. Patient has history of hypertension, hypercholesteremia, and smoking history. His EKGs and cardiac enzymes were negative. Baseline EKG showed a sinus rhythm with normal MD interval and QRS duration. A standard dose of Lexiscan was infused. EKGs taken during and after infusion did not reveal any changes to suggest ischemia. Final impression #1. Negative Lexiscan stress test #2. Report on the nuclear images to be given by the radiologist. ARNULFO
--- NOTE | 2017-05-15 19:26 | P.DS ---
Providers Date of admission: 05/07/17 22:15 Expected date of discharge: 05/09/17 Attending physician: Shun Turk MD Consults: 05/07/17 22:15 Consult Physician Urgent Consulting Provider: Matt Staples Consult Reason/Comments: Chest pain Do you want consulting provider notified?: Yes, Notify in am Primary care physician: Jerome Cummings Hospital Course: Discharge diagnosis Atypical chest pain. Mainly right sided. Ruled out acute coronary syndrome Hypertension Hyperlipidemia Hypertriglyceridemia Osteoarthritis Number arthritis Obstructive sleep apnea on CPAP Left carpal tunnel release surgery Family history of coronary artery disease Currently everyday smoker Morbid obesity with BMI 39.5 Hospital course Mr. Campbell is a pleasant 46-year-old male came to ER with complaints of chest pain right lower sharp chest started yesterday on and off lasting about 15--20 minutes. Denied any radiation of the pain. Her surgery with mild shortness of breath.. Denied any nausea vomiting, diaphoresis or dizziness or lightheadedness. No orthopnea no PND. No aggravating or relieving factors. Patient does have left carpal tunnel release surgery in January 2017 since then he is on light duty. Patient has a past medical history significant for hypertension, COPD, dyslipidemia, diabetes mellitus, gastroesophageal reflux disease, chronic tobacco use and morbid obesity. He has significant family history of heart disease with his father, and 2 brothers from heart disease. He denies personal history of CAD. He states he underwent cardiac catheterization in 2005 that was essentially normal with no angioplasty required at that time. EKG on arrival reveals sinus mechanism with no acute ST or T-wave abnormalities. Chest xray reveals no acute cardiopulmonary process with atelectasis at the left lung base. He complains of chronic dry cough. Troponin 3 negative, d-dimer not elevated triglycerides 837. Patient was negative continued on telemetry monitoring. Serial EKG and troponin. Cardiology has seen the patient and recommended stress test.#1. Negative Lexiscan stress test. No stress-induced reversible ischemia. Currently patient is chest pain-free and is stable to be discharged home. PHYSICAL EXAMINATION: Patient is lying in the bed comfortably, no acute distress, awake alert and oriented.. HEENT: Normocephalic. Neck is supple. Pupils reactive. Nostrils clear. Oral cavity is moist. Ears reveal no drainage. Neck reveals no JVD, carotid bruits, or thyromegaly. CHEST EXAMINATION: Trachea is central. Symmetrical expansion. Lung gold clear to auscultation and percussion. CARDIAC: Normal S1, S2 with no gallops. No murmurs ABDOMEN: Soft. Bowel sounds normal. No organomegaly. No abdominal bruits. Extremities: reveal no edema. No clubbing or cyanosis Neurologically awake, alert, oriented x3 with well-coordinated movements. No focal deficits noted Skin: No rash or skin lesions. Psychiatric: Coperative. Nonsuicidal Musculoskeletal: No joint swelling or deformity. Normal range of motion. Vital Signs 05/07/17 05/07/17 05/07/17 16:36 17:38 19:36 Temperature 98.2 F Pulse Rate 68 82 62 Pulse Rate [ Right Pulse Oximetery] Respiratory 18 17 18 Rate Blood Pressure 129/79 134/89 142/71 Blood Pressure [Left Arm] Blood Pressure [Right Arm] O2 Sat by Pulse 98 95 97 Oximetry 05/07/17 05/07/17 05/07/17 19:44 21:20 23:05 Temperature Pulse Rate 70 62 67 Pulse Rate [ Right Pulse Oximetery] Respiratory 18 18 18 Rate Blood Pressure 143/61 122/65 131/66 Blood Pressure [Left Arm] Blood Pressure [Right Arm] O2 Sat by Pulse 97 97 97 Oximetry 05/08/17 05/08/17 05/08/17 03:00 06:42 08:15 Temperature Pulse Rate 60 62 63 Pulse Rate [ Right Pulse Oximetery] Respiratory 18 20 16 Rate Blood Pressure 104/69 119/61 125/60 Blood Pressure [Left Arm] Blood Pressure [Right Arm] O2 Sat by Pulse 93 L 94 L 95 Oximetry 05/08/17 05/08/17 05/08/17 09:08 09:14 11:33 Temperature Pulse Rate 63 65 67 Pulse Rate [ Right Pulse Oximetery] Respiratory 18 Rate Blood Pressure 123/59 Blood Pressure [Left Arm] Blood Pressure [Right Arm] O2 Sat by Pulse 97 Oximetry 05/08/17 05/08/17 05/08/17 12:34 12:43 12:49 Temperature Pulse Rate 65 65 62 Pulse Rate [ Right Pulse Oximetery] Respiratory 19 Rate Blood Pressure 145/69 Blood Pressure [Left Arm] Blood Pressure [Right Arm] O2 Sat by Pulse 97 Oximetry 05/08/17 05/08/1705/08/18 14:05 15:00 15:07 Temperature 98.3 F 98.2 F Pulse Rate 59 L Pulse Rate [ 56 L 56 L Right Pulse Oximetery] Respiratory 16 16 16 Rate Blood Pressure 114/63 Blood Pressure [Left Arm] Blood Pressure 139/77 [Right Arm] O2 Sat by Pulse 95 96 Oximetry 05/08/17 05/08/17 05/08/17 15:52 16:32 16:41 Temperature Pulse Rate 62 64 Pulse Rate [ 56 L Right Pulse Oximetery] Respiratory 16 Rate Blood Pressure Blood Pressure [Left Arm] Blood Pressure [Right Arm] O2 Sat by Pulse Oximetry 05/08/17 05/08/17 05/08/17 19:35 20:00 21:33 Temperature 97.8 F Pulse Rate 63 Pulse Rate [ 66 66 Right Pulse Oximetery] Respiratory 16 16 Rate Blood Pressure Blood Pressure [Left Arm] Blood Pressure 127/55 [Right Arm] O2 Sat by Pulse 93 L Oximetry 05/08/17 05/08/17 05/08/17 21:43 21:57 23:21 Temperature Pulse Rate 64 Pulse Rate [ 61 Right Pulse Oximetery] Respiratory 16 Rate Blood Pressure Blood Pressure [Left Arm] Blood Pressure [Right Arm] O2 Sat by Pulse 96 Oximetry 05/09/17 05/09/17 05/09/17 00:00 04:00 07:55 Temperature 98.2 F Pulse Rate 63 Pulse Rate [ 60 55 L Right Pulse Oximetery] Respiratory 16 16 18 Rate Blood Pressure Blood Pressure [Left Arm] Blood Pressure 118/59 109/56 [Right Arm] O2 Sat by Pulse 97 99 Oximetry 05/09/17 05/09/17 08:00 11:53 Temperature 97.6 F 97.7 F Pulse Rate Pulse Rate [ 61 65 Right Pulse Oximetery] Respiratory 18 18 Rate Blood Pressure Blood Pressure 146/71 138/58 [Left Arm] Blood Pressure [Right Arm] O2 Sat by Pulse 96 96 Oximetry Patient Condition at Discharge: Stable Plan - Discharge Summary Discharge Rx Participant: No New Discharge Prescriptions: Continue Tiotropium 18 Mcg/Puff [Spiriva] 1 cap INHALATION RT-DAILY Simvastatin 40 mg PO HS Sertraline [Zoloft] 150 mg PO DAILY Pregabalin [Lyrica] 150 mg PO BID Loperamide [Imodium] 2 - 4 mg PO QID PRN PRN Reason: IBS Lisinopril-Hctz 20-25 mg [Zestoretic 20-25] 1 tab PO DAILY Lidocaine 4% Cream [Lmx 4] 1 applic TOPICAL DAILY PRN PRN Reason: Pain Ibuprofen [Motrin] 800 mg PO TID PRN PRN Reason: Pain Fluticasone Nasal [place] [Flonase Nasal [place]] 1 spray EA NOSTRIL BID Divalproex ER [Depakote ER] 1,000 mg PO HS buPROPion HCL [Wellbutrin SR] 150 mg PO BID Cetirizine HCl [Zyrtec] 10 mg PO DAILY traMADol HCL [Ultram] 50 mg PO Q8H PRN PRN Reason: Pain Propranolol HCl [Propranolol HCl ER] 120 mg PO DAILY Omeprazole [PriLOSEC] 40 mg PO BID Sodium Bic Otc(Unknown Dose) 2 tab PO BID Discharge Medication List Cetirizine HCl [Zyrtec] 10 mg PO DAILY 05/07/17 [History] Divalproex ER [Depakote ER] 1,000 mg PO HS 05/07/17 [History] Fluticasone Nasal [place] [Flonase Nasal [place]] 1 spray EA NOSTRIL BID 05/07/17 [ History] Ibuprofen [Motrin] 800 mg PO TID PRN 05/07/17 [History] Lidocaine 4% Cream [Lmx 4] 1 applic TOPICAL DAILY PRN 05/07/17 [History] Lisinopril-Hctz 20-25 mg [Zestoretic 20-25] 1 tab PO DAILY 05/07/17 [History] Loperamide [Imodium] 2 - 4 mg PO QID PRN 05/07/17 [History] Omeprazole [PriLOSEC] 40 mg PO BID 05/07/17 [History] Pregabalin [Lyrica] 150 mg PO BID 05/07/17 [History] Propranolol HCl [Propranolol HCl ER] 120 mg PO DAILY 05/07/17 [History] Sertraline [Zoloft] 150 mg PO DAILY 05/07/17 [History] Simvastatin 40 mg PO HS 05/07/17 [History] Sodium Bic Otc(Unknown Dose) 2 tab PO BID 05/07/17 [History] Tiotropium 18 Mcg/Puff [Spiriva] 1 cap INHALATION RT-DAILY 05/07/17 [History] buPROPion HCL [Wellbutrin SR] 150 mg PO BID 05/07/17 [History] traMADol HCL [Ultram] 50 mg PO Q8H PRN 05/07/17 [History] Follow up Appointment(s)/Referral(s): Matt Staples MD [STAFF PHYSICIAN] - 2 Weeks (Office will call the patient to arrange follow up appointment.) Jerome Cummings DO [Primary Care Provider] - 1-2 days Patient Instructions/Handouts: Chest Pain (DC) Discharge Disposition: HOME SELF-CARE
== END 2017-05-09 15:32 | disposition home or self-care (01) ==
LOC: EC 16:30 → 3OBS 22:15
PROVIDERS: ADMIT Internal Medicine; ATTEND Internal Medicine
DX: R07.89 Other chest pain (principal); R10.9 Unspecified abdominal pain; I10 Essential (primary) hypertension; E78.1 Pure hyperglyceridemia; G43.909 Migraine, unspecified, not intractable, without status migrainosus; G47.33 Obstructive sleep apnea (adult) (pediatric); Z99.89 Dependence on other enabling machines and devices; E78.5 Hyperlipidemia, unspecified; Z91.19 Patient's noncompliance with other medical treatment and regimen; J44.9 Chronic obstructive pulmonary disease, unspecified; M06.9 Rheumatoid arthritis, unspecified; M19.90 Unspecified osteoarthritis, unspecified site; E11.9 Type 2 diabetes mellitus without complications; F17.210 Nicotine dependence, cigarettes, uncomplicated; Z68.39 Body mass index [BMI] 39.0-39.9, adult; E66.01 Morbid (severe) obesity due to excess calories; F43.10 Post-traumatic stress disorder, unspecified; F41.9 Anxiety disorder, unspecified; F32.9 Major depressive disorder, single episode, unspecified; Z79.82 Long term (current) use of aspirin; Z79.51 Long term (current) use of inhaled steroids; Z79.899 Other long term (current) drug therapy; Z98.890 Other specified postprocedural states; Z87.820 Personal history of traumatic brain injury; Z82.49 Family history of ischemic heart disease and other diseases of the circulatory system; Z82.5 Family history of asthma and other chronic lower respiratory diseases
CPT/HCPCS: 96365 ×2; 96366 ×17; 96376 ×2; 96375 ×2; 99285 ×2; 36415; 94640 ×3; 93005; 93017; 93306; 85379; 80061; 80053; 82150; 82550 ×2; 82553 ×2; 83690; 83735; 84484 ×2; 85025; 85610; 85730 ×2; 71046; 76700; 78452; G0378 ×3; A9500; J1644 ×2; S0106 ×2; J1885; J2785; Q9950

== ENCOUNTER → 2017-06-14 | Outpatient (CLI) | payer BC ==
--- NOTE | 2017-06-14 19:54 | CT ---
EXAMINATION TYPE: CT abdomen pelvis wo con DATE OF EXAM: 06/14/2017 COMPARISON: NONE INDICATION: Right flank pain DLP: 1193.2 mGycm, Automated exposure control for dose reduction was used. CONTRAST: mL of . Study performed without Oral Contrast TECHNIQUE: Axial images were obtained from above the diaphragm to the pubic rami in the axial plane a t 5 mm thick sections. Reconstructed images are reviewed on the computer in the coronal plane. FINDINGS: Limited CT sections are obtained the lung bases. The lung bases are clear. CT ABDOMEN: Liver: There is a small 0.6 cm hypodensity within the superior left lobe liver too small to classify. Spleen: Normal Pancreas: Normal Adrenal glands: The adrenal glands are normal. Gallbladder: Surgically absent Kidneys: No masses are evident. No hydronephrosis is present. No cysts are present. There is a 0.4 cm calcification at the mid portion right kidney. No hydronephrosis is evident. Aorta: Vascular calcification is within the aorta. Inferior vena cava: Normal. CT PELVIS: Loops of bowel within the abdomen and pelvis are normal. Studies performed without oral contrast limiting the evaluation. Moderate fecal debris is within the proximal sigmoid colon. Appendix: Normal as visualized. Urinary bladder: Normal. Genitourinary structures: Prostate is unremarkable. Osseous structures: No suspicious lytic or sclerotic lesions. IMPRESSIONS: 1. Nonobstructing mid right renal stone. 2. Normal appendix.
== END ==
LOC: RADCTMAIN 16:22
PROVIDERS: ATTEND Family Medicine
DX: N20.0 Calculus of kidney (principal)
CPT/HCPCS: 74176

== ENCOUNTER 2017-07-25 11:20 | Observation (INO) | payer BC, OTHER ==
[2017-07-25 11:49] VITALS: RESP 18
[2017-07-25] MEDS ORDERED: NITROGLYCERIN OINT 1 INCH/GM PACKET TOPICAL STA (12:28)
[2017-07-25] MEDS ORDERED: ASPIRIN 81 MG PO STA ×2 (12:28→14:16)
--- NOTE | 2017-07-25 12:32 | ED ---
General Adult HPI - General Chief complaint: Shortness of Breath Stated complaint: SOB WITH EXERSION Time Seen by Provider: 07/25/17 11:45 Source: patient, RN notes reviewed Mode of arrival: wheelchair - History of Present Illness Initial comments: This a 46-year-old male presents emergency department with past medical history significant for smoking high blood pressure high cholesterol and a strong family history of heart disease. Patient states over the last 2 weeks any time he exerts himself his been short of breath. Patient denies any chest pain or palpitations. Patient states he went to his doctor and he'll and they did an EKG and he got a call today from a all source intelligence analyst stating that he needs to go right to the emergency department this EKG is abnormal. Patient denies any abdominal pain patient denies nausea vomiting diarrhea. Patient denies any diaphoresis. Patient denies any lightheadedness dizziness or near syncopal episode. Patient states currently he is asymptomatic. Patient denies any calf pain or leg swelling. - Related Data Home Medications Medication Instructions Recorded Confirmed Cetirizine HCl [Zyrtec] 10 mg PO DAILY 05/07/17 07/25/17 Divalproex ER [Depakote ER] 1,000 mg PO HS 05/07/17 07/25/17 Fluticasone Nasal [place] [Flonase 1 spray EA NOSTRIL BID 05/07/17 07/25/17 Nasal [place]] Ibuprofen [Motrin] 800 mg PO TID PRN 05/07/17 07/25/17 Lidocaine 4% Cream [Lmx 4] 1 applic TOPICAL DAILY PRN 05/07/17 07/25/17 Lisinopril-Hctz 20-25 mg 1 tab PO DAILY 05/07/17 07/25/17 [Zestoretic 20-25] Loperamide [Imodium] 4 mg PO BID 05/07/17 07/25/17 Omeprazole [PriLOSEC] 40 mg PO BID 05/07/17 07/25/17 Pregabalin [Lyrica] 150 mg PO BID 05/07/17 07/25/17 Propranolol HCl [Propranolol HCl 120 mg PO DAILY 05/07/17 07/25/17 ER] Sertraline [Zoloft] 150 mg PO DAILY 05/07/17 07/25/17 Simvastatin 40 mg PO HS 05/07/17 07/25/17 Sodium Bic Otc(Unknown Dose) 2 tab PO BID 05/07/17 07/25/17 Tiotropium 18 Mcg/Puff [Spiriva] 1 cap INHALATION RT-DAILY 05/07/17 07/25/17 buPROPion HCL [Wellbutrin SR] 150 mg PO BID 05/07/17 07/25/17 traMADol HCL [Ultram] 50 mg PO Q8H PRN 05/07/17 07/25/17 Aspirin EC [Ecotrin Low Dose] 81 mg PO DAILY 07/25/17 07/25/17 Allergies Allergy/AdvReac Type Severity Reaction Status Date / Time No Known Allergies Allergy Verified 07/25/17 12:45 Review of Systems ROS Statement: Those systems with pertinent positive or pertinent negative responses have been documented in the HPI. ROS Other: All systems not noted in ROS Statement are negative. 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 History of Any Multi-Drug Resistant Organisms: None Reported Past Surgical History: Cholecystectomy, Ear Surgery, Heart Catheterization, Orthopedic Surgery Additional Past Surgical History / Comment(s): 2005 cardiac cath-treated with medication, bilateral myringotomy/tubes which have fallen out, L carpal tunnel release, vasectomy.l Past Anesthesia/Blood Transfusion Reactions: No Reported Reaction Past Psychological History: Anxiety, Depression, PTSD Smoking Status: Current every day smoker Past Alcohol Use History: Occasional Past Drug Use History: None Reported - Past Family History Father Family Medical History: Coronary Artery Disease (CAD), Myocardial Infarction (VT ) Additional Family Medical History / Comment(s): Father at the age of 78yrs from his AICD/pacer failing. He had had a VT at the age of 72yrs. Mother Family Medical History: COPD, Respiratory Disorder Additional Family Medical History / Comment(s): Mother had severe COPD. She was a heavy smoker. She used home oxygen. She at the age of 88yrs. General Exam - General Exam Comments Initial Comments: GENERAL: Patient is well-developed and well-nourished. Patient is nontoxic and well- hydrated and is in no acute distress. ENT: Neck is soft and supple. No significant lymphadenopathy is noted. Oropharynx is clear. Moist mucous membranes. Neck has full range of motion without eliciting any pain. EYES: The sclera were anicteric and conjunctiva were pink and moist. Extraocular movements were intact and pupils were equal round and reactive to light. Eyelids were unremarkable. PULMONARY: Unlabored respirations. Good breath sounds bilaterally. No audible rales rhonchi or wheezing was noted. CARDIOVASCULAR: There is a regular rate and rhythm without any murmurs gallops or rubs. ABDOMEN: Soft and nontender with normal bowel sounds. No palpable organomegaly was noted. There is no palpable pulsatile mass. SKIN: Skin is clear with no lesions or rashes and otherwise unremarkable. NEUROLOGIC: Patient is alert and oriented x3. Cranial nerves II through XII are grossly intact. Motor and sensory are also intact. Normal speech, volume and content. Symmetrical smile. MUSCULOSKELETAL: Normal extremities with adequate strength and full range of motion. No lower extremity swelling or edema. No calf tenderness. LYMPHATICS: No significant lymphadenopathy is noted PSYCHIATRIC: Normal psychiatric evaluation. Normal interpersonal interactions appears functionally intact in deals appropriately with others. No signs of depression. No signs of anxiety. Course Vital Signs 07/25/17 11:45 Temperature 97.7 F Pulse Rate 66 Respiratory 18 Rate Blood Pressure 129/71 O2 Sat by Pulse 98 Oximetry Medical Decision Making - Medical Decision Making The all source intelligence analyst at the [place] told the physician assistant city attorney that the patient saw that the patient needed to come to the hospital and be evaluated. Patient's lab work and EKG were normal. EKG showed a normal sinus rhythm at 61 bpm PA interval is 152 QRS is 96 Q-T intervals 408 QTC is 410. Patient's EKG shows no ST segment elevation or depression or T wave abnormalities are noted. I compared this EKG to an old EKG and there was no acute abnormality. Patient had dyspnea with exertion as well as a strong family history of smoking history and high blood pressure so I decided that the patient needed to be admitted he did not want to be admitted and he stated he would follow up with cardiology as an outpatient. When the nurse went to discharge him he decided he wanted to stay so I admitted the patient. - Lab Data Result diagrams: 07/25/17 12:44 07/25/17 12:44 Lab Results 07/25/17 07/25/17 07/25/17 Range/Units 12:44 12:44 12:44 WBC 5.3 (3.8-10.6) k/uL RBC 4.55 (4.30-5.90) m/uL Hgb 13.9 (13.0-17.5) gm/dL Hct 39.5 (39.0-53.0) % MCV 86.8 (80.0-100.0) fL MCH 30.6 (25.0-35.0) pg MCHC 35.2 (31.0-37.0) g/dL RDW 12.9 (11.5-15.5) % Plt Count 203 (150-450) k/uL Neutrophils % 50 % Lymphocytes % 37 % Monocytes % 9 % Eosinophils % 2 % Basophils % 1 % Neutrophils # 2.6 (1.3-7.7) k/uL Lymphocytes # 1.9 (1.0-4.8) k/uL Monocytes # 0.4 (0-1.0) k/uL Eosinophils # 0.1 (0-0.7) k/uL Basophils # 0.1 (0-0.2) k/uL PT (9.0-12.0) sec INR (<1.2) APTT (22.0-30.0) sec Sodium 138 (137-145) mmol/L Potassium 3.8 (3.5-5.1) mmol/L Chloride 102 (98-107) mmol/L Carbon Dioxide 24 (22-30) mmol/L Anion Gap 12 mmol/L BUN 14 (9-20) mg/dL Creatinine 0.66 (0.66-1.25) mg/dL Est GFR (CKD-EPI)AfAm >90 (>60 ml/min/1.73 sqM) Est GFR (CKD-EPI)NonAf >90 (>60 ml/min/1.73 sqM) Glucose 82 (74-99) mg/dL Calcium 8.9 (8.4-10.2) mg/dL Magnesium 2.0 (1.6-2.3) mg/dL Total Bilirubin 0.3 (0.2-1.3) mg/dL AST 27 (17-59) U/L ALT 34 (21-72) U/L Alkaline Phosphatase 56 (38-126) U/L Total Creatine Kinase 61 (55-170) U/L CK-MB (CK-2) <0.2 (0.0-2.4) ng/mL CK-MB (CK-2) Rel Index Troponin I <0.012 (0.000-0.034) ng/mL Total Protein 6.9 (6.3-8.2) g/dL Albumin 4.2 (3.5-5.0) g/dL 07/25/17 Range/Units 12:44 WBC (3.8-10.6) k/uL RBC (4.30-5.90) m/uL Hgb (13.0-17.5) gm/dL Hct (39.0-53.0) % MCV (80.0-100.0) fL MCH (25.0-35.0) pg MCHC (31.0-37.0) g/dL RDW (11.5-15.5) % Plt Count (150-450) k/uL Neutrophils % % Lymphocytes % % Monocytes % % Eosinophils % % Basophils % % Neutrophils # (1.3-7.7) k/uL Lymphocytes # (1.0-4.8) k/uL Monocytes # (0-1.0) k/uL Eosinophils # (0-0.7) k/uL Basophils # (0-0.2) k/uL PT 10.6 (9.0-12.0) sec INR 1.1 (<1.2) APTT 26.1 (22.0-30.0) sec Sodium (137-145) mmol/L Potassium (3.5-5.1) mmol/L Chloride (98-107) mmol/L Carbon Dioxide (22-30) mmol/L Anion Gap mmol/L BUN (9-20) mg/dL Creatinine (0.66-1.25) mg/dL Est GFR (CKD-EPI)AfAm (>60 ml/min/1.73 sqM) Est GFR (CKD-EPI)NonAf (>60 ml/min/1.73 sqM) Glucose (74-99) mg/dL Calcium (8.4-10.2) mg/dL Magnesium (1.6-2.3) mg/dL Total Bilirubin (0.2-1.3) mg/dL AST (17-59) U/L ALT (21-72) U/L Alkaline Phosphatase (38-126) U/L Total Creatine Kinase (55-170) U/L CK-MB (CK-2) (0.0-2.4) ng/mL CK-MB (CK-2) Rel Index Troponin I (0.000-0.034) ng/mL Total Protein (6.3-8.2) g/dL Albumin (3.5-5.0) g/dL Disposition Clinical Impression: Dyspnea on exertion Disposition: ADMITTED IP TO THIS HOSP Referrals: [facility],Clinic [Primary Care Provider] - 1-2 days Time of Disposition: 14:08
[2017-07-25 13:00] LABS: Basophils # (A) 0.1 k/uL (0-0.2); Basophils % (A) 1 %; Eosinophils # (A) 0.1 k/uL (0-0.7); Eosinophils % (A) 2 %; HCT 39.5 % (39.0-53.0); HGB 13.9 gm/dL (13.0-17.5); Lymphocytes # (A) 1.9 k/uL (1.0-4.8); Lymphocytes % (A) 37 %; MCH 30.6 pg (25.0-35.0); MCHC 35.2 g/dL (31.0-37.0); MCV 86.8 fL (80.0-100.0); Mean Platelet Volume 6.9; Monocytes # (A) 0.4 k/uL (0-1.0); Monocytes % (A) 9 %; Neutrophils # (A) 2.6 k/uL (1.3-7.7); Neutrophils % (A) 50 %; Platelet Count 203 k/uL (150-450); RBC 4.55 m/uL (4.30-5.90); RDW 12.9 % (11.5-15.5); WBC 5.3 k/uL (3.8-10.6)
--- NOTE | 2017-07-25 13:06 | XR ---
EXAMINATION TYPE: XR chest 2V DATE OF EXAM: 07/25/2017 CLINICAL HISTORY: Chest pain TECHNIQUE: Frontal and lateral views of the chest are obtained. COMPARISON: None FINDINGS: There is no focal air space opacity, pleural effusion, or pneumothorax seen. The cardiac silhouette size is within normal limits. The osseous structures are intact. IMPRESSION: No acute cardiopulmonary process.
[2017-07-25 13:09] LABS: INR 1.1 (<1.2); Partial Thromboplastin Time 26.1 sec (22.0-30.0); Prothrombin Time 10.6 sec (9.0-12.0)
[2017-07-25 13:12] LABS: ALT 34 U/L (21-72); AST 27 U/L (17-59); Albumin 4.2 g/dL (3.5-5.0); Alkaline Phosphatase 56 U/L (38-126); Anion Gap 12 mmol/L; Blood Urea Nitrogen 14 mg/dL (9-20); Calcium 8.9 mg/dL (8.4-10.2); Carbon Dioxide 24 mmol/L (22-30); Chloride 102 mmol/L (98-107); Glucose 82 mg/dL (74-99); Potassium 3.8 mmol/L (3.5-5.1); Sodium 138 mmol/L (137-145); Total Bilirubin 0.3 mg/dL (0.2-1.3); Total Protein 6.9 g/dL (6.3-8.2)
[2017-07-25 13:20] LABS: Creatine Kinase 61 U/L (55-170)
[2017-07-25 13:33] LABS: Creatine Kinase MB <0.2 ng/mL (0.0-2.4); Troponin I <0.012 ng/mL (0.000-0.034)
[2017-07-25 14:47] VITALS: BP 122/73; PULSE 60; TEMP 97.8
[2017-07-25] MEDS ORDERED: LIDOCAINE 4% CREAM 5 GM TUBE TOPICAL PRN (15:11)
[2017-07-25] MEDS ORDERED: traMADol 50 MG TAB PO PRN (15:11)
[2017-07-25] MEDS ORDERED: IBUPROFEN 800 MG TAB PO PRN (15:11)
[2017-07-25] MEDS ORDERED: ALBUTEROL NEBULIZED 2.5 MG/3 ML INHALATION PRN (15:16)
[2017-07-25] MEDS ORDERED: methylPREDNISolone SOD SUCCI 125 MG/2 ML VIAL IV STA (15:21)
--- NOTE | 2017-07-25 17:48 | P.HPIM ---
History of Present Illness 46-year-old pleasant gentleman with past medical history of asthma and smoking history and possibility of COPD came in with complaints of shortness of breath. Patient's primary care physician discussed with the driver license technician and he recommended to hospitalization. Patient came in to ER denied any chest pain short of breath wheezing on exam EKG sinus rhythm troponin is negative we'll repeat another set of troponin. I do not believe his shortness of breath is secondary to cardiac origin patient does have wheezing on exam and is related to either asthma or COPD exacerbation. Patient does have history of migraine because of which patient is on propranolol which is a nonselective beta erna which can precipitate wheezing patient was having some flulike symptoms coughing without any significant sputum production. Patient has family wasn't friends with similar symptoms. Patient chest x-ray did not show any pneumonic process. After second set of troponin and EKG if they're negative patient will be discharged to follow with primary care patient in cardiology as an outpatient. Patient had a stress test couple months ago which was negative for any inducible ischemia. Patient will be discharged on weaning dose of steroids , Symbicort and albuterol. We will also give him 3 days of antibiotics for bronchitis unsure whether patient actually has bacterial bronchitis. Patient does have history of premature coronary artery disease. Patient does have history of migraine and hypertension because of which patient is on propranolol. Patient will be discharged on verapamil more considering his bronchospasm asthma history and discontinue propranolol as it's a nonselective beta erna. Review of Systems REVIEW OF SYSTEMS: CONSTITUTIONAL: No fever, no malaise, no fatigue. HEENT: No recent visual problems or hearing problems. Denied any sore throat. CARDIOVASCULAR: No chest pain, orthopnea, PND, no palpitations, no syncope. PULMONARY: no hemoptysis. GASTROINTESTINAL: No diarrhea, no nausea, no vomiting, no abdominal pain. Normoactive bowel sounds. NEUROLOGICAL: No headaches, no weakness, no numbness. HEMATOLOGICAL: Denies any bleeding or petechiae. GENITOURINARY: Denies any burning micturition, frequency, or urgency. MUSCULOSKELETAL/RHEUMATOLOGICAL: Denies any joint pain, swelling, or any muscle pain. ENDOCRINE: Denies any polyuria or polydipsia. The rest of the 14-point review of systems is negative. 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 RLS History of Any Multi-Drug Resistant Organisms: None Reported Past Surgical History: Cholecystectomy, Ear Surgery, Heart Catheterization, Orthopedic Surgery Additional Past Surgical History / Comment(s): 2005 cardiac cath-treated with medication, bilateral myringotomy/tubes which have fallen out, L carpal tunnel release, vasectomy. right wrist surgery for tendons. Past Anesthesia/Blood Transfusion Reactions: No Reported Reaction Past Psychological History: Anxiety, Depression, PTSD Additional Psychological History / Comment(s): Pt resides with his spouse and 2 children. He is independent. He served in [employer]. Smoking Status: Current every day smoker Past Alcohol Use History: Occasional Additional Past Alcohol Use History / Comment(s): Pt started smoking in 1982 and was a 3ppd smoker but is now down to 1/4 ppd. Past Drug Use History: None Reported - Past Family History Father Family Medical History: Coronary Artery Disease (CAD), Myocardial Infarction (MN ) Additional Family Medical History / Comment(s): Father at the age of 78yrs from his AICD/pacer failing. He had had a MN at the age of 72yrs. Mother Family Medical History: COPD, Respiratory Disorder Additional Family Medical History / Comment(s): Mother had severe COPD. She was a heavy smoker. She used home oxygen. She at the age of 88yrs. Medications and Allergies Home Medications Medication Instructions Recorded Confirmed Type Cetirizine HCl [Zyrtec] 10 mg PO DAILY 05/07/17 07/25/17 History Divalproex ER [Depakote ER] 1,000 mg PO HS 05/07/17 07/25/17 History Fluticasone Nasal [place] [Flonase 1 spray EA NOSTRIL BID 05/07/17 07/25/17 History Nasal [place]] Ibuprofen [Motrin] 800 mg PO TID PRN 05/07/17 07/25/17 History Lidocaine 4% Cream [Lmx 4] 1 applic TOPICAL DAILY PRN 05/07/17 07/25/17 History Lisinopril-Hctz 20-25 mg 1 tab PO DAILY 05/07/17 07/25/17 History [Zestoretic 20-25] Loperamide [Imodium] 4 mg PO BID 05/07/17 07/25/17 History Omeprazole [PriLOSEC] 40 mg PO BID 05/07/17 07/25/17 History Pregabalin [Lyrica] 150 mg PO BID 05/07/17 07/25/17 History Sertraline [Zoloft] 150 mg PO DAILY 05/07/17 07/25/17 History Simvastatin 40 mg PO HS 05/07/17 07/25/17 History Sodium Bic Otc(Unknown Dose) 2 tab PO BID 05/07/17 07/25/17 History Tiotropium 18 Mcg/Puff [Spiriva] 1 cap INHALATION RT-DAILY 05/07/17 07/25/17 History buPROPion HCL [Wellbutrin SR] 150 mg PO BID 05/07/17 07/25/17 History traMADol HCL [Ultram] 50 mg PO Q8H PRN 05/07/17 07/25/17 History Albuterol Inhaler [Ventolin Hfa 1 - 2 puff INHALATION Q6HR PRN #1 07/25/17 Rx Inhaler] inhaler Aspirin EC [Ecotrin Low Dose] 81 mg PO DAILY 07/25/17 07/25/17 History Budesonide-Formot 160-4.5 Mcg 2 puff INHALATION BID #1 inhaler 07/25/17 Rx [Symbicort 160-4.5 Mcg Inhaler] Doxycycline Monohydrate [Monodox] 100 mg PO Q12HR #6 cap 07/25/17 Rx Verapamil Sr [Isoptin Sr] 120 mg PO HS #30 tablet.er 07/25/17 Rx predniSONE 10 mg PO DAILY #30 tab 07/25/17 Rx Allergies Allergy/AdvReac Type Severity Reaction Status Date / Time No Known Allergies Allergy Verified 07/25/17 12:45 Physical Exam Vitals: Vital Signs Temp Pulse Resp BP Pulse Ox 07/25/17 15:57 18 07/25/17 14:45 97.8 F 60 18 122/73 98 07/25/17 14:07 57 L 18 137/78 98 07/25/17 13:49 58 L 18 147/82 95 07/25/17 11:45 97.7 F 66 18 129/71 98 Intake and Output 07/25/17 07/25/17 07/25/17 06:59 14:59 22:59 Other: Voiding Method Toilet Weight 125.645 kg PHYSICAL EXAMINATION: GENERAL: The patient is alert and oriented x3, not in any acute distress. Well developed, well nourished. HEENT: Pupils are round and equally reacting to light. EOMI. No scleral icterus. No conjunctival pallor. Normocephalic, atraumatic. No pharyngeal erythema. No thyromegaly. CARDIOVASCULAR: S1 and S2 present. No murmurs, rubs, or gallops. PULMONARY: Chest is clear to auscultation, expiratory wheezing was appreciated ABDOMEN: Soft, nontender, nondistended, normoactive bowel sounds. No palpable organomegaly. MUSCULOSKELETAL: No joint swelling or deformity. EXTREMITIES: No cyanosis, clubbing, or pedal edema. NEUROLOGICAL: Gross neurological examination did not reveal any focal deficits. SKIN: No rashes. Results CBC & Chem 7: 07/25/17 12:44 07/25/17 12:44 Thrombosis Risk Factor Assmnt - Choose All That Apply Any of the Below Risk Factors Present?: Yes Each Factor Represents 1 point: Abnormal pulmonary function (COPD), Age 41-60 years, Obesity (BMI >25) Other Risk Factors: No Other congenital or acquired thrombophilia - If yes, enter type in comment: No Thrombosis Risk Factor Assessment Total Risk Factor Score: 3 Thrombosis Risk Factor Assessment Level: Moderate Risk Assessment and Plan Plan: -Shortness of breath: Secondary to either asthma and/or or COPD exacerbation, management as mentioned above we will rule out a concurrent syndromes with another set of troponin and EKG although my suspicion is extremely low this is cardiac in origin considering that he had a stress test couple months ago. -Migraine history: Management as mentioned above next and-hypertension -Hyperlipidemia -Obesity: Counseling was provided -Decoded abuse: Counseling was provided -Hypertension -Chronic low back pain
--- NOTE | 2017-07-25 17:48 | P.DS ---
Providers Date of admission: 07/25/17 14:16 Attending physician: Darian Pate Consults: 07/25/17 14:16 Consult Physician Urgent Consulting Provider: [facility] Consult Reason/Comments: Dyspnea with exertion Do you want consulting provider notified?: Yes Primary care physician: [facility] Hospital Course: As mentioned in HPI Plan - Discharge Summary Discharge Rx Participant: No New Discharge Prescriptions: New Albuterol Inhaler [Ventolin Hfa Inhaler] 1 - 2 puff INHALATION Q6HR PRN #1 inhaler PRN Reason: Shortness Of Breath Or Wheezing Budesonide-Formot 160-4.5 Mcg [Symbicort 160-4.5 Mcg Inhaler] 2 puff INHALATION BID #1 inhaler Doxycycline Monohydrate [Monodox] 100 mg PO Q12HR #6 cap predniSONE 10 mg PO DAILY #30 tab Verapamil Sr [Isoptin Sr] 120 mg PO HS #30 tablet.er Discontinued Propranolol HCl [Propranolol HCl ER] 120 mg PO DAILY No Action Tiotropium 18 Mcg/Puff [Spiriva] 1 cap INHALATION RT-DAILY Simvastatin 40 mg PO HS Sertraline [Zoloft] 150 mg PO DAILY Pregabalin [Lyrica] 150 mg PO BID Loperamide [Imodium] 4 mg PO BID Lisinopril-Hctz 20-25 mg [Zestoretic 20-25] 1 tab PO DAILY Lidocaine 4% Cream [Lmx 4] 1 applic TOPICAL DAILY PRN PRN Reason: Pain Ibuprofen [Motrin] 800 mg PO TID PRN PRN Reason: Pain Fluticasone Nasal [place] [Flonase Nasal [place]] 1 spray EA NOSTRIL BID Divalproex ER [Depakote ER] 1,000 mg PO HS buPROPion HCL [Wellbutrin SR] 150 mg PO BID Cetirizine HCl [Zyrtec] 10 mg PO DAILY traMADol HCL [Ultram] 50 mg PO Q8H PRN PRN Reason: Pain Omeprazole [PriLOSEC] 40 mg PO BID Sodium Bic Otc(Unknown Dose) 2 tab PO BID Aspirin EC [Ecotrin Low Dose] 81 mg PO DAILY Discharge Medication List Cetirizine HCl [Zyrtec] 10 mg PO DAILY 05/07/17 [History] Divalproex ER [Depakote ER] 1,000 mg PO HS 05/07/17 [History] Fluticasone Nasal [place] [Flonase Nasal [place]] 1 spray EA NOSTRIL BID 05/07/17 [ History] Ibuprofen [Motrin] 800 mg PO TID PRN 05/07/17 [History] Lidocaine 4% Cream [Lmx 4] 1 applic TOPICAL DAILY PRN 05/07/17 [History] Lisinopril-Hctz 20-25 mg [Zestoretic 20-25] 1 tab PO DAILY 05/07/17 [History] Loperamide [Imodium] 4 mg PO BID 05/07/17 [History] Omeprazole [PriLOSEC] 40 mg PO BID 05/07/17 [History] Pregabalin [Lyrica] 150 mg PO BID 05/07/17 [History] Sertraline [Zoloft] 150 mg PO DAILY 05/07/17 [History] Simvastatin 40 mg PO HS 05/07/17 [History] Sodium Bic Otc(Unknown Dose) 2 tab PO BID 05/07/17 [History] Tiotropium 18 Mcg/Puff [Spiriva] 1 cap INHALATION RT-DAILY 05/07/17 [History] buPROPion HCL [Wellbutrin SR] 150 mg PO BID 05/07/17 [History] traMADol HCL [Ultram] 50 mg PO Q8H PRN 05/07/17 [History] Albuterol Inhaler [Ventolin Hfa Inhaler] 1 - 2 puff INHALATION Q6HR PRN #1 inhaler 07/25/17 [Rx] Aspirin EC [Ecotrin Low Dose] 81 mg PO DAILY 07/25/17 [History] Budesonide-Formot 160-4.5 Mcg [Symbicort 160-4.5 Mcg Inhaler] 2 puff INHALATION BID #1 inhaler 07/25/17 [Rx] Doxycycline Monohydrate [Monodox] 100 mg PO Q12HR #6 cap 07/25/17 [Rx] Verapamil Sr [Isoptin Sr] 120 mg PO HS #30 tablet.er 07/25/17 [Rx] predniSONE 10 mg PO DAILY #30 tab 07/25/17 [Rx] Follow up Appointment(s)/Referral(s): [facility],Clinic [Primary Care Provider] - 3 Days Discharge Disposition: HOME SELF-CARE
[2017-07-25] MEDS ORDERED: NITROGLYCERIN OINT 1 INCH/GM PACKET TOPICAL SCH (18:00)
[2017-07-25 18:28] LABS: Creatine Kinase 53 U/L (55-170)
[2017-07-25 18:40] LABS: Creatine Kinase MB <0.2 ng/mL (0.0-2.4); Troponin I <0.012 ng/mL (0.000-0.034)
[2017-07-25] MEDS ORDERED: ATORVASTATIN 20 MG TAB PO SCH (21:00)
[2017-07-25] MEDS ORDERED: DIVALPROEX ER 500 MG TAB.ER.24H PO SCH (21:00)
[2017-07-25] MEDS ORDERED: FLUTICASONE 50MCG/SPRAY NASAL 16GM EA NOSTRIL SCH (21:00)
[2017-07-25] MEDS ORDERED: PREGABALIN 75 MG CAP PO SCH (21:00)
[2017-07-25] MEDS ORDERED: LOPERAMIDE 2 MG CAP PO SCH (21:00)
[2017-07-25] MEDS ORDERED: VERAPAMIL SR 180 MG TABLET.ER PO SCH (21:00)
[2017-07-25] MEDS ORDERED: buPROPion SR 150 MG TABLET.ER PO SCH (21:00)
[2017-07-26] MEDS ORDERED: PANTOPRAZOLE 40 MG TABLET PO SCH (07:30)
[2017-07-26] MEDS ORDERED: IPRATROPIUM 0.5 MG/2.5 ML NEBU INHALATION SCH (08:00)
[2017-07-26] MEDS ORDERED: LISINOPRIL-HCTZ 20-25 MG 1 EACH TAB PO SCH (09:00)
[2017-07-26] MEDS ORDERED: PROPRANOLOL LA 60 MG CAP.SA.24H PO SCH (09:00)
[2017-07-26] MEDS ORDERED: ASPIRIN 325 MG TAB PO SCH (09:00)
[2017-07-26] MEDS ORDERED: SERTRALINE 100 MG TAB PO SCH (09:00)
[2017-07-26] MEDS ORDERED: LORATADINE 10 MG TAB PO SCH (09:00)
[2017-07-26] MEDS ORDERED: ASPIRIN 81 MG PO SCH (09:00)
== END 2017-07-25 19:55 | disposition home or self-care (01) ==
LOC: EC 11:20 → 3OBS 14:16
PROVIDERS: ADMIT Internal Medicine; ATTEND Internal Medicine
DX: J44.1 Chronic obstructive pulmonary disease with (acute) exacerbation (principal); J45.901 Unspecified asthma with (acute) exacerbation; I10 Essential (primary) hypertension; I25.10 Atherosclerotic heart disease of native coronary artery without angina pectoris; F17.200 Nicotine dependence, unspecified, uncomplicated; M06.9 Rheumatoid arthritis, unspecified; K21.9 Gastro-esophageal reflux disease without esophagitis; G47.33 Obstructive sleep apnea (adult) (pediatric); E78.5 Hyperlipidemia, unspecified; M19.90 Unspecified osteoarthritis, unspecified site; G43.909 Migraine, unspecified, not intractable, without status migrainosus; E66.9 Obesity, unspecified; Z68.41 Body mass index [BMI] 40.0-44.9, adult; E11.9 Type 2 diabetes mellitus without complications; G89.29 Other chronic pain; M54.5 Low back pain; R41.3 Other amnesia; F43.10 Post-traumatic stress disorder, unspecified; F32.9 Major depressive disorder, single episode, unspecified; F41.9 Anxiety disorder, unspecified; Z99.89 Dependence on other enabling machines and devices; Z90.49 Acquired absence of other specified parts of digestive tract; Z87.828 Personal history of other (healed) physical injury and trauma; Z79.82 Long term (current) use of aspirin; Z79.51 Long term (current) use of inhaled steroids; Z79.899 Other long term (current) drug therapy; Z82.49 Family history of ischemic heart disease and other diseases of the circulatory system; Z82.5 Family history of asthma and other chronic lower respiratory diseases; Z81.2 Family history of tobacco abuse and dependence
CPT/HCPCS: 99285 ×2; 96374; 36415; 93005; 80053; 82550; 82553; 83735; 84484; 85025; 85610; 85730; 71046; G0378; J2930

== ENCOUNTER 2017-08-22 17:33 | Emergency (ER) | payer OTHER ==
[2017-08-22 18:14] VITALS: BP 126/82; PULSE 80; RESP 20; TEMP 98.3
--- NOTE | 2017-08-22 19:17 | ED ---
Head Injury HPI - General Chief complaint: Head Injury Stated complaint: [facility] - HEAD INJURY Time Seen by Provider: 08/22/17 18:42 Source: patient, RN notes reviewed Mode of arrival: wheelchair Limitations: no limitations - History of Present Illness Initial comments: This is a 46-year-old male who presents to the emergency department with chief complaint of head injury. Patient states that at approximately 2:30 this afternoon he hit the back of his head while getting into a vehicle. Patient denies loss of consciousness or episodes of vomiting. He does state that he feels nauseous, has a mild headache and has some dizziness. He denies any other injuries or trauma. Denies fevers or chills, chest pain or shortness of breath, abdominal pain. - Related Data Home Medications Medication Instructions Recorded Confirmed Cetirizine HCl [Zyrtec] 10 mg PO DAILY 05/07/17 07/25/17 Divalproex ER [Depakote ER] 1,000 mg PO HS 05/07/17 07/25/17 Fluticasone Nasal [place] [Flonase 1 spray EA NOSTRIL BID 05/07/17 07/25/17 Nasal [place]] Ibuprofen [Motrin] 800 mg PO TID PRN 05/07/17 07/25/17 Lidocaine 4% Cream [Lmx 4] 1 applic TOPICAL DAILY PRN 05/07/17 07/25/17 Lisinopril-Hctz 20-25 mg 1 tab PO DAILY 05/07/17 07/25/17 [Zestoretic 20-25] Loperamide [Imodium] 4 mg PO BID 05/07/17 07/25/17 Omeprazole [PriLOSEC] 40 mg PO BID 05/07/17 07/25/17 Pregabalin [Lyrica] 150 mg PO BID 05/07/17 07/25/17 Sertraline [Zoloft] 150 mg PO DAILY 05/07/17 07/25/17 Simvastatin 40 mg PO HS 05/07/17 07/25/17 Sodium Bic Otc(Unknown Dose) 2 tab PO BID 05/07/17 07/25/17 Tiotropium 18 Mcg/Puff [Spiriva] 1 cap INHALATION RT-DAILY 05/07/17 07/25/17 buPROPion HCL [Wellbutrin SR] 150 mg PO BID 05/07/17 07/25/17 traMADol HCL [Ultram] 50 mg PO Q8H PRN 05/07/17 07/25/17 Aspirin EC [Ecotrin Low Dose] 81 mg PO DAILY 07/25/17 07/25/17 Previous Rx's Medication Instructions Recorded Albuterol Inhaler [Ventolin Hfa 1 - 2 puff INHALATION Q6HR PRN #1 07/25/17 Inhaler] inhaler Budesonide-Formot 160-4.5 Mcg 2 puff INHALATION BID #1 inhaler 07/25/17 [Symbicort 160-4.5 Mcg Inhaler] Doxycycline Monohydrate [Monodox] 100 mg PO Q12HR #6 cap 07/25/17 Verapamil Sr [Isoptin Sr] 120 mg PO HS #30 tablet.er 07/25/17 predniSONE 10 mg PO DAILY #30 tab 07/25/17 Allergies/Adverse reactions: Allergies Allergy/AdvReac Type Severity Reaction Status Date / Time No Known Allergies Allergy Verified 08/22/17 18:14 Review of Systems ROS Statement: Those systems with pertinent positive or pertinent negative responses have been documented in the HPI. ROS Other: All systems not noted in ROS Statement are negative. 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 RLS History of Any Multi-Drug Resistant Organisms: None Reported Past Surgical History: Cholecystectomy, Ear Surgery, Heart Catheterization, Orthopedic Surgery Additional Past Surgical History / Comment(s): 2006 cardiac cath-treated with medication, bilateral myringotomy/tubes which have fallen out, L carpal tunnel release, vasectomy. right wrist surgery for tendons. Past Anesthesia/Blood Transfusion Reactions: No Reported Reaction Past Psychological History: Anxiety, Depression, PTSD Smoking Status: Current every day smoker Past Alcohol Use History: Occasional Past Drug Use History: None Reported - Past Family History Father Family Medical History: Coronary Artery Disease (CAD), Myocardial Infarction ([place] ) Additional Family Medical History / Comment(s): Father at the age of 78yrs from his AICD/pacer failing. He had had a [place] at the age of 72yrs. Mother Family Medical History: COPD, Respiratory Disorder Additional Family Medical History / Comment(s): Mother had severe COPD. She was a heavy smoker. She used home oxygen. She at the age of 88yrs. General Exam - General Exam Comments Initial Comments: General: Awake and alert, well-developed; in no apparent distress. HEENT: Head atraumatic, normocephalic. Small area of ecchymosis noted to the mid parietal scalp. No hematomas. Pupils are equal, round and reactive to light. Extraocular movements intact. Oropharynx moist without erythema or exudate. Neck: Supple. Normal ROM. Cardiovascular: Regular rate and rhythm. No murmurs, rubs or gallops. Chest symmetrical. Respiratory: Lungs clear to auscultation bilaterally. No wheezes, rales or rhonchi. Normal respiratory effort with no use of accessory muscles. Musculoskeletal: Normal ROM, no tenderness, strength 5/5 bilateral upper and lower extremities. Ambulating normally. Skin: [place], warm and dry without rashes or lesions. Neurological: Alert and oriented x3. CN II-XII grossly intact. Speech is fluent and answers are appropriate. No focal neuro deficits. Finger to nose testing normal. Romberg negative. Psychiatric: Normal mood and affect. No overt signs of depression or anxiety noted. Limitations: no limitations Course Vital Signs 08/22/17 18:12 Temperature 98.3 F Pulse Rate 80 Respiratory 20 Rate Blood Pressure 126/82 O2 Sat by Pulse 96 Oximetry Medical Decision Making - Medical Decision Making 46-year-old male who presents to the emergency department with chief complaint of head injury. Patient hit the back of his head on the frame of a vehicle while trying to get into it at approximately 2:30 this afternoon. No loss of consciousness, episodes of vomiting. Mild headache, dizziness and nausea. Patient is neurologically intact. No computed tomography scan warranted at this time. This was discussed with patient who is in agreement. Return parameters were discussed. Patient's vital signs are stable and he is in no acute distress. He will be discharged home at this time. All questions answered. Disposition Clinical Impression: Closed head injury, Concussion without loss of consciousness Disposition: HOME SELF-CARE Condition: Good Instructions: Concussion (ED) Additional Instructions: Please follow up with primary care provider within 1-2 days. Return to emergency department if symptoms should worsen or any concerns arise. Is patient prescribed a controlled substance at d/c from ED?: No Referrals: [facility],Clinic [Primary Care Provider] - 1-2 days Time of Disposition: 18:59
== END 2017-08-22 19:28 | disposition home or self-care (01) ==
LOC: EC 17:33
DX: S06.0X0A Concussion without loss of consciousness, initial encounter (principal); S00.03XA Contusion of scalp, initial encounter; E78.5 Hyperlipidemia, unspecified; I10 Essential (primary) hypertension; J44.9 Chronic obstructive pulmonary disease, unspecified; K21.9 Gastro-esophageal reflux disease without esophagitis; G47.33 Obstructive sleep apnea (adult) (pediatric); M06.9 Rheumatoid arthritis, unspecified; M19.90 Unspecified osteoarthritis, unspecified site; F32.9 Major depressive disorder, single episode, unspecified; F41.9 Anxiety disorder, unspecified; F43.10 Post-traumatic stress disorder, unspecified; F17.200 Nicotine dependence, unspecified, uncomplicated; Z79.51 Long term (current) use of inhaled steroids; Z79.82 Long term (current) use of aspirin; Z79.899 Other long term (current) drug therapy; Z99.89 Dependence on other enabling machines and devices; Z86.69 Personal history of other diseases of the nervous system and sense organs; W22.8XXA Striking against or struck by other objects, initial encounter; Y93.89 Activity, other specified; Y92.69 Other specified industrial and construction area as the place of occurrence of the external cause; Y99.0 Civilian activity done for income or pay
CPT/HCPCS: 99283

== ENCOUNTER 2017-08-23 19:54 | Emergency (ER) | payer OTHER ==
--- NOTE | 2017-08-23 20:38 | CT ---
EXAMINATION TYPE: CT brain wo con DATE OF EXAM: 08/23/2017 COMPARISON: 08/22/2016 HISTORY: Fell and hit head yesterday. Syncope today. CT DLP: 1020.2 mGycm. Automated Exposure Control for Dose Reduction was Utilized. TECHNIQUE: CT scan of the head is performed without contrast. FINDINGS: Ventricles and sulci appear normal. There is no mass effect nor midline shift. There is no sign of intracranial hemorrhage. The calvarium is intact. IMPRESSION: Negative CT scan of the brain. No change.
[2017-08-23] MEDS ORDERED: SODIUM CHLORIDE 0.9% 500 ML IV STA (21:39)
--- NOTE | 2017-08-23 21:45 | ED ---
General Adult HPI - General Chief complaint: Syncope Stated complaint: syncope-revisit Time Seen by Provider: 08/23/17 21:32 Source: patient, RN notes reviewed, old records reviewed Mode of arrival: ambulatory Limitations: no limitations - History of Present Illness Initial comments: 46-year-old male past medical history of hypertension, diabetes, hypercholesterolemia presenting with near syncopal episode. Patient states he was standing at work bench, he blacked out and fell backwards. This lasted just a second. No significant head injury. No preceding chest pain or dyspnea. Patient states he's been eating and drinking normally throughout the day. No cough or fever, no vomiting or diarrhea. No abdominal pain. No chest pain or shortness of breath. Patient states that yesterday he did hit his head while at work. There was no loss consciousness but he was quite dazed by this. Patient has no complaints time my evaluation. He states he recently had his blood pressure medication adjusted and had a additional agent added for elevated blood pressure. This was within the past 3-4 weeks. - Related Data Home Medications Medication Instructions Recorded Confirmed Cetirizine HCl [Zyrtec] 10 mg PO HS 05/07/17 08/23/17 Divalproex ER [Depakote ER] 500 mg PO BID 05/07/17 08/23/17 Fluticasone Nasal [place] [Flonase 1 spray EA NOSTRIL BID PRN 05/07/17 08/23/17 Nasal [place]] Ibuprofen [Motrin] 800 mg PO TID PRN 05/07/17 08/23/17 Lidocaine 4% Cream [Lmx 4] 1 applic TOPICAL DAILY PRN 05/07/17 08/23/17 Loperamide [Imodium] 4 mg PO BID 05/07/17 08/23/17 Omeprazole [PriLOSEC] 40 mg PO BID 05/07/17 08/23/17 Pregabalin [Lyrica] 150 mg PO BID 05/07/17 08/23/17 Sertraline [Zoloft] 100 mg PO DAILY 05/07/17 08/23/17 Simvastatin 40 mg PO HS 05/07/17 08/23/17 Tiotropium 18 Mcg/Puff [Spiriva] 1 cap INHALATION RT-DAILY 05/07/17 08/23/17 buPROPion HCL [Wellbutrin SR] 150 mg PO BID 05/07/17 08/23/17 traMADol HCL [Ultram] 50 mg PO Q8H PRN 05/07/17 08/23/17 Aspirin EC [Ecotrin Low Dose] 81 mg PO DAILY 07/25/17 08/23/17 Albuterol Inhaler [Ventolin Hfa 1 - 2 puff INHALATION RT-QID PRN 08/23/17 Inhaler] Budesonide-Formot 160-4.5 Mcg 2 puff INHALATION RT-BID 08/23/17 08/23/17 [Symbicort 160-4.5 Mcg Inhaler] Sodium Bicarbonate Tab 1,300 mg PO BID 08/23/17 08/23/17 hydrOXYzine HCL [Atarax] 25 mg PO BID PRN 08/23/17 08/23/17 Previous Rx's Medication Instructions Recorded Verapamil Sr [Isoptin Sr] 120 mg PO HS #30 tablet.er 07/25/17 Allergies Allergy/AdvReac Type Severity Reaction Status Date / Time No Known Allergies Allergy Verified 08/23/17 21:47 Review of Systems ROS Statement: Those systems with pertinent positive or pertinent negative responses have been documented in the HPI. ROS Other: All systems not noted in ROS Statement are negative. 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 RLS History of Any Multi-Drug Resistant Organisms: None Reported Past Surgical History: Cholecystectomy, Ear Surgery, Heart Catheterization, Orthopedic Surgery Additional Past Surgical History / Comment(s): 2006 cardiac cath-treated with medication, bilateral myringotomy/tubes which have fallen out, L carpal tunnel release, vasectomy. right wrist surgery for tendons. Past Anesthesia/Blood Transfusion Reactions: No Reported Reaction Past Psychological History: Anxiety, Depression, PTSD Smoking Status: Current every day smoker Past Alcohol Use History: Occasional Past Drug Use History: None Reported - Past Family History Father Family Medical History: Coronary Artery Disease (CAD), Myocardial Infarction (CO ) Additional Family Medical History / Comment(s): Father at the age of 78yrs from his AICD/pacer failing. He had had a CO at the age of 72yrs. Mother Family Medical History: COPD, Respiratory Disorder Additional Family Medical History / Comment(s): Mother had severe COPD. She was a heavy smoker. She used home oxygen. She at the age of 88yrs. General Exam Limitations: no limitations General appearance: alert, in no apparent distress Head exam: Present: atraumatic, normocephalic Eye exam: Present: normal appearance, PERRL, EOMI ENT exam: Present: mucous membranes dry Neck exam: Present: normal inspection. Absent: tenderness, meningismus Respiratory exam: Present: normal lung sounds bilaterally. Absent: respiratory distress, wheezes Cardiovascular Exam: Present: regular rate, normal rhythm GI/Abdominal exam: Present: soft. Absent: distended, tenderness Extremities exam: Present: normal inspection, full ROM. Absent: normal capillary refill, pedal edema Neurological exam: Present: alert, oriented X3, CN II-XII intact. Absent: motor sensory deficit Psychiatric exam: Present: normal affect, normal mood Skin exam: Present: warm, dry, intact. Absent: cyanosis, diaphoretic Course Vital Signs 08/23/17 08/23/17 20:04 21:52 Temperature 98.3 F 97.8 F Pulse Rate 89 65 Respiratory 20 18 Rate Blood Pressure 129/83 130/68 O2 Sat by Pulse 96 97 Oximetry EKG Findings - EKG Comments: EKG Findings:: EKG: Normal sinus rhythm, rate of 83, IN interval 1:30, QS duration 102, QTC [address] segment elevation or depression. Medical Decision Making - Medical Decision Making 46-year-old male presenting with near syncopal episode. Patient did have head injury yesterday this was fairly severe although there was no loss consciousness. Head CT is obtained is negative for acute intracranial abnormality. Workup includes EKG, chest x-ray which are normal, no arrhythmia on EKG, no ST segment elevation or depression. CBC, CMP are unremarkable, UA and troponin are negative. Patient feels well time my evaluation and on reevaluation. He will be discharged with outpatient follow-up. Symptoms may be related to concussion from head injury. - Lab Data Result diagrams: 08/23/17 21:51 08/23/17 21:51 Lab Results 08/23/17 08/23/17 08/23/17 Range/Units 21:51 21:51 21:51 WBC 5.3 (3.8-10.6) k/uL RBC 4.55 (4.30-5.90) m/uL Hgb 14.1 (13.0-17.5) gm/dL Hct 40.6 (39.0-53.0) % MCV 89.3 (80.0-100.0) fL MCH 31.0 (25.0-35.0) pg MCHC 34.6 (31.0-37.0) g/dL RDW 13.1 (11.5-15.5) % Plt Count 197 (150-450) k/uL Neutrophils % 45 % Lymphocytes % 42 % Monocytes % 7 % Eosinophils % 3 % Basophils % 1 % Neutrophils # 2.4 (1.3-7.7) k/uL Lymphocytes # 2.2 (1.0-4.8) k/uL Monocytes # 0.4 (0-1.0) k/uL Eosinophils # 0.1 (0-0.7) k/uL Basophils # 0.0 (0-0.2) k/uL PT (9.0-12.0) sec INR (<1.2) APTT (22.0-30.0) sec Sodium 138 (137-145) mmol/L Potassium 4.0 (3.5-5.1) mmol/L Chloride 102 (98-107) mmol/L Carbon Dioxide 22 (22-30) mmol/L Anion Gap 14 mmol/L BUN 7 L (9-20) mg/dL Creatinine 0.60 L (0.66-1.25) mg/dL Est GFR (CKD-EPI)AfAm >90 (>60 ml/min/1.73 sqM) Est GFR (CKD-EPI)NonAf >90 (>60 ml/min/1.73 sqM) Glucose 103 H (74-99) mg/dL Calcium 9.1 (8.4-10.2) mg/dL Magnesium 1.9 (1.6-2.3) mg/dL Total Bilirubin 0.4 (0.2-1.3) mg/dL AST 22 (17-59) U/L ALT 31 (21-72) U/L Alkaline Phosphatase 56 (38-126) U/L Total Creatine Kinase 63 (55-170) U/L CK-MB (CK-2) <0.2 (0.0-2.4) ng/mL CK-MB (CK-2) Rel Index Troponin I <0.012 (0.000-0.034) ng/mL Total Protein 6.8 (6.3-8.2) g/dL Albumin 4.2 (3.5-5.0) g/dL Urine Color Urine Appearance (Clear) Urine pH (5.0-8.0) Ur Specific [place] (1.001-1.035) Urine Protein (Negative) Urine Glucose (UA) (Negative) Urine Ketones (Negative) Urine Blood (Negative) Urine Nitrite (Negative) Urine Bilirubin (Negative) Urine Urobilinogen (<2.0) mg/dL Ur Leukocyte Esterase (Negative) 08/23/17 08/23/17 Range/Units 21:51 21:51 WBC (3.8-10.6) k/uL RBC (4.30-5.90) m/uL Hgb (13.0-17.5) gm/dL Hct (39.0-53.0) % MCV (80.0-100.0) fL MCH (25.0-35.0) pg MCHC (31.0-37.0) g/dL RDW (11.5-15.5) % Plt Count (150-450) k/uL Neutrophils % % Lymphocytes % % Monocytes % % Eosinophils % % Basophils % % Neutrophils # (1.3-7.7) k/uL Lymphocytes # (1.0-4.8) k/uL Monocytes # (0-1.0) k/uL Eosinophils # (0-0.7) k/uL Basophils # (0-0.2) k/uL PT 10.7 (9.0-12.0) sec INR 1.1 (<1.2) APTT 25.9 (22.0-30.0) sec Sodium (137-145) mmol/L Potassium (3.5-5.1) mmol/L Chloride (98-107) mmol/L Carbon Dioxide (22-30) mmol/L Anion Gap mmol/L BUN (9-20) mg/dL Creatinine (0.66-1.25) mg/dL Est GFR (CKD-EPI)AfAm (>60 ml/min/1.73 sqM) Est GFR (CKD-EPI)NonAf (>60 ml/min/1.73 sqM) Glucose (74-99) mg/dL Calcium (8.4-10.2) mg/dL Magnesium (1.6-2.3) mg/dL Total Bilirubin (0.2-1.3) mg/dL AST (17-59) U/L ALT (21-72) U/L Alkaline Phosphatase (38-126) U/L Total Creatine Kinase (55-170) U/L CK-MB (CK-2) (0.0-2.4) ng/mL CK-MB (CK-2) Rel Index Troponin I (0.000-0.034) ng/mL Total Protein (6.3-8.2) g/dL Albumin (3.5-5.0) g/dL Urine Color Light Yellow Urine Appearance Clear (Clear) Urine pH 7.0 (5.0-8.0) Ur Specific [place] 1.004 (1.001-1.035) Urine Protein Negative (Negative) Urine Glucose (UA) Negative (Negative) Urine Ketones Negative (Negative) Urine Blood Negative (Negative) Urine Nitrite Negative (Negative) Urine Bilirubin Negative (Negative) Urine Urobilinogen <2.0 (<2.0) mg/dL Ur Leukocyte Esterase Negative (Negative) Disposition Clinical Impression: Closed head injury, Concussion without loss of consciousness, Near syncope Disposition: HOME SELF-CARE Condition: Good Instructions: Concussion (ED), Near Syncope (ED) Is patient prescribed a controlled substance at d/c from ED?: No Referrals: [facility],Clinic [Primary Care Provider] - 1-2 days Time of Disposition: 23:11
[2017-08-23 21:56] VITALS: RESP 18
[2017-08-23 22:12] LABS: Appearance,Urine Clear (Clear); Basophils % (A) 1 %; Bilirubin,Urine Negative (Negative); Blood,Urine Negative (Negative); Color,Urine Light Yellow; Eosinophils # (A) 0.1 k/uL (0-0.7); Eosinophils % (A) 3 %; Glucose,Urine (UA) Negative (Negative); HCT 40.6 % (39.0-53.0); HGB 14.1 gm/dL (13.0-17.5); Ketones,Urine Negative (Negative); Leukocyte Esterase,Urine Negative (Negative); Lymphocytes # (A) 2.2 k/uL (1.0-4.8); Lymphocytes % (A) 42 %; MCHC 34.6 g/dL (31.0-37.0); MCV 89.3 fL (80.0-100.0); Mean Platelet Volume 6.6; Monocytes # (A) 0.4 k/uL (0-1.0); Monocytes % (A) 7 %; Neutrophils # (A) 2.4 k/uL (1.3-7.7); Neutrophils % (A) 45 %; Nitrite,Urine Negative (Negative); Platelet Count 197 k/uL (150-450); Protein,Urine Negative (Negative); RBC 4.55 m/uL (4.30-5.90); RDW 13.1 % (11.5-15.5); Specific Gravity,Urine 1.004 (1.001-1.035); Urobilinogen,Urine <2.0 mg/dL (<2.0); WBC 5.3 k/uL (3.8-10.6)
--- NOTE | 2017-08-23 22:21 | XR ---
EXAMINATION TYPE: XR chest 2V DATE OF EXAM: 08/23/2017 COMPARISON: 07/25/2017 HISTORY: Syncope TECHNIQUE: Frontal and lateral views of the chest are obtained. FINDINGS: Heart and mediastinum are normal. Lungs are clear. Diaphragm is normal. There are chest le ads. IMPRESSION: Normal chest. No change.
[2017-08-23 22:28] LABS: INR 1.1 (<1.2); Partial Thromboplastin Time 25.9 sec (22.0-30.0); Prothrombin Time 10.7 sec (9.0-12.0)
[2017-08-23 22:36] LABS: Creatine Kinase 63 U/L (55-170)
[2017-08-23 22:39] LABS: ALT 31 U/L (21-72); AST 22 U/L (17-59); Albumin 4.2 g/dL (3.5-5.0); Alkaline Phosphatase 56 U/L (38-126); Anion Gap 14 mmol/L; Blood Urea Nitrogen 7 mg/dL (9-20); Calcium 9.1 mg/dL (8.4-10.2); Carbon Dioxide 22 mmol/L (22-30); Chloride 102 mmol/L (98-107); Glucose 103 mg/dL (74-99); Magnesium 1.9 mg/dL (1.6-2.3); Sodium 138 mmol/L (137-145); Total Bilirubin 0.4 mg/dL (0.2-1.3); Total Protein 6.8 g/dL (6.3-8.2)
[2017-08-23 22:48] LABS: Creatine Kinase MB <0.2 ng/mL (0.0-2.4); Troponin I <0.012 ng/mL (0.000-0.034)
[2017-08-23 23:32] VITALS: BP 136/75; PULSE 79; TEMP 97.5
== END 2017-08-23 23:32 | disposition home or self-care (01) ==
LOC: EC 19:54
DX: S06.0X0A Concussion without loss of consciousness, initial encounter (principal); R55 Syncope and collapse; J44.9 Chronic obstructive pulmonary disease, unspecified; E78.5 Hyperlipidemia, unspecified; I10 Essential (primary) hypertension; K21.9 Gastro-esophageal reflux disease without esophagitis; M19.90 Unspecified osteoarthritis, unspecified site; G47.33 Obstructive sleep apnea (adult) (pediatric); F32.9 Major depressive disorder, single episode, unspecified; F41.9 Anxiety disorder, unspecified; F43.10 Post-traumatic stress disorder, unspecified; F17.200 Nicotine dependence, unspecified, uncomplicated; Z79.51 Long term (current) use of inhaled steroids; Z79.899 Other long term (current) drug therapy; Z99.89 Dependence on other enabling machines and devices; W01.10XA Fall on same level from slipping, tripping and stumbling with subsequent striking against unspecified object, initial encounter; Y92.69 Other specified industrial and construction area as the place of occurrence of the external cause; Y99.0 Civilian activity done for income or pay
CPT/HCPCS: 36415; 70450; 71046; 80053; 81003; 82550; 82553; 83735; 84484; 85025; 85610; 85730; 96360; 99285

== ENCOUNTER → 2017-09-11 | Outpatient (CLI) | payer BC, OTHER ==
--- NOTE | 2017-09-11 11:57 | MR ---
EXAMINATION TYPE: MR brain and iac wo/w con DATE OF EXAM: 09/11/2017 COMPARISON: CT brain 08/23/2017 HISTORY: Disorders of unspecified acoustic nerve, hearing loss left side TECHNIQUE: Multiplanar, multisequence images of the brain and brainstem is performed without and with IV contras t, utilizing 13 mL intravenous Gadavist . FINDINGS: Diffusion weighted images demonstrate no evidence of a recent infarct or other diffusion ab normality. There is no extra-axial fluid collection or significant white matter signal abnormality, punctate hyperintensities on inversion recovery and T2-weighted sequences in the deep white matter of the frontal lobes, approximately 5 are of questionable clinical significance. The ventricular syste m and cisternal spaces are normal in size and appearance. The brain volume is age appropriate. Midline structures demonstrate normal morphology. The craniocervical junction appears within normal limits. Post contrast images demonstrate no abnormal enhancement. The dural venous sinuses appear pa tent. The visualized sinuses are remarkable for inflammatory change in the maxillary sinuses right gr eater than left, sphenoid sinus, and the globes are intact. IMPRESSION: Sinus disease. No evident cerebellopontine angle mass, internal auditory canals are unrem arkable
== END | disposition home or self-care (01) ==
LOC: RADMRIMAIN 09:53
PROVIDERS: ATTEND Otolaryngology
DX: J32.9 Chronic sinusitis, unspecified (principal); H93.3X2 Disorders of left acoustic nerve; H91.92 Unspecified hearing loss, left ear
CPT/HCPCS: 70553; A9581

== ENCOUNTER → 2017-12-06 | Outpatient (CLI) | payer BC ==
--- NOTE | 2017-12-06 12:07 | FL ---
EXAMINATION TYPE: FL barium swallow w video DATE OF EXAM: 12/06/2017 MODIFIED SWALLOW / DEGLUTITION STUDY CLINICAL HISTORY: Dysphagia. TECHNIQUE: Deglutition study is performed utilizing thin liquid barium, nectar thick liquid barium, barium thick pudding, and barium coated cracker. 1 minute and 31 seconds of fluoroscopy time was util ized with 0 images saved as the exam was video recorded. COMPARISON: None. FINDINGS: The oral and pharyngeal phases show satisfactory initiation and propagation with all modali ties tested. Normal mastication is seen with solid modalities tested. Premature spill to the level o f the vallecula was noted with all tested modalities. There is persistent laryngeal penetration with the thin barium consistency and nectar thick barium consistency. On most instances laryngeal penetrat ion was trace, however deep laryngeal penetration was seen with the chin tuck maneuver utilizing thin barium. No definitive extension beyond the vocal cords to suggest aspiration was seen. No significan t pharyngeal residue was appreciated. IMPRESSION: Persistent laryngeal penetration with the thin and nectar thick consistency. Please refe r to speech therapist notes for further details if necessary.
== END | disposition home or self-care (01) ==
LOC: RADFLMAIN 10:32
PROVIDERS: ATTEND Psychiatry & Neurology Neurology
DX: J38.7 Other diseases of larynx (principal)
CPT/HCPCS: 74230

== ENCOUNTER → 2017-12-20 | Outpatient (CLI) | payer BC ==
--- NOTE | 2017-12-24 08:26 | NM ---
EXAMINATION TYPE: NM DatScan Brain SPECT DATE OF EXAM: 12/20/2017 COMPARISON: Correlation CT 08/23/2017 HISTORY: 47-year-old male with tremor TECHNIQUE: 10 drops of Lugol's solution was administered 1 hour prior to injection as a thyroid bloc abdiaziz agent. After the administration of 4.66 mCi I-123 Ioflupane DaTscan. Images obtained 3 hours p ost injection. SPECT images of the brain were acquired with axial and coronal reconstructions. FINDINGS: There is suggestion of slight unilateral reduction of activity at the left striatum with slight blunt ing in the normal comma shaped appearance as compared to the contralateral side. No significant incre ase in background uptake. IMPRESSION: Suggestion of very slight reduction in activity on the left. Consider follow-up given the minimal isadora nges at this time. Findings may be seen in the setting of either idiopathic Parkinson's disease or a Parkinsonian Syndrome.
== END | disposition home or self-care (01) ==
LOC: RADNMMAIN 10:44
PROVIDERS: ATTEND Psychiatry & Neurology Neurology
DX: G25.0 Essential tremor (principal)
CPT/HCPCS: 78607; A9584

== ENCOUNTER 2018-05-21 13:27 | Emergency (ER) | payer BC, OTHER ==
[2018-05-21 13:33] VITALS: RESP 16; TEMP 98.4
[2018-05-21] MEDS ORDERED: IPRATROPIUM 0.5 MG/2.5 ML NEBU INHALATION STA (13:55)
[2018-05-21] MEDS ORDERED: methylPREDNISolone SOD SUCCI 125 MG/2 ML VIAL IV STA (13:55)
[2018-05-21] MEDS ORDERED: ALBUTEROL NEBULIZED 2.5 MG/3 ML INHALATION STA (13:55)
--- NOTE | 2018-05-21 14:22 | ED ---
General Adult HPI - General Chief complaint: Upper Respiratory Infection Stated complaint: Coughing up blood Time Seen by Provider: 05/21/18 13:46 Source: patient, RN notes reviewed, old records reviewed Mode of arrival: ambulatory Limitations: no limitations - History of Present Illness Initial comments: 47-year-old male presenting for evaluation of cough, dyspnea, hemoptysis. Patient has had bronchitis with hemoptysis over the past one month. He's had some intermittent episodes of hemoptysis. He's coughed up blood several times over the past one month. He was treated with steroids and antibiotics which did improve his symptoms. He is a current smoker with history of COPD. He states he's had an x-ray which did not show any pneumonia. Denies fever or chills. Does complain of mild sore throat. He complains of some dyspnea associated with his cough. No lower extremity swelling or pain. No history DVT. No history of CAD. - Related Data Home Medications Medication Instructions Recorded Confirmed Cetirizine HCl [Zyrtec] 10 mg PO HS 05/07/17 05/21/18 Fluticasone Nasal [place] [Flonase 1 spray EA NOSTRIL BID PRN 05/07/17 05/21/18 Nasal [place]] Ibuprofen [Motrin] 800 mg PO BID PRN 05/07/17 05/21/18 Lidocaine 4% Cream [Lmx 4] 1 applic TOPICAL DAILY PRN 05/07/17 05/21/18 Loperamide [Imodium] 4 mg PO BID 05/07/17 05/21/18 Omeprazole [PriLOSEC] 40 mg PO BID 05/07/17 05/21/18 Pregabalin [Lyrica] 150 mg PO BID 05/07/17 05/21/18 Sertraline [Zoloft] 100 mg PO DAILY 05/07/17 05/21/18 Simvastatin 40 mg PO HS 05/07/17 05/21/18 Tiotropium 18 Mcg/Puff [Spiriva] 1 cap INHALATION RT-DAILY 05/07/17 05/21/18 buPROPion HCL [Wellbutrin SR] 150 mg PO BID 05/07/17 05/21/18 Aspirin EC [Ecotrin Low Dose] 81 mg PO DAILY 07/25/17 05/21/18 Albuterol Inhaler [Ventolin Hfa 1 - 2 puff INHALATION RT-QID PRN 08/23/17 05/21/18 Inhaler] Budesonide-Formot 160-4.5 Mcg 2 puff INHALATION RT-BID 08/23/17 05/21/18 [Symbicort 160-4.5 Mcg Inhaler] Sodium Bicarbonate Tab 1,300 mg PO BID 08/23/17 05/21/18 hydrOXYzine HCL [Atarax] 25 mg PO BID PRN 08/23/17 05/21/18 DULoxetine HCL [Cymbalta] 30 mg PO DAILY 05/21/18 05/21/18 Gabapentin [Neurontin] 100 mg PO QAM 05/21/18 05/21/18 Gabapentin [Neurontin] 200 mg PO HS 05/21/18 05/21/18 Lisinopril-Hctz 20-25 mg 1 tab PO DAILY 05/21/18 05/21/18 [Zestoretic 20-25] rOPINIRole HCL [Requip] 1 mg PO BID 05/21/18 05/21/18 Previous Rx's Medication Instructions Recorded Verapamil Sr [Isoptin Sr] 120 mg PO HS #30 tablet.er 07/25/17 Albuterol Inhaler [Ventolin Hfa 1 - 2 puff INHALATION Q4HR PRN #1 05/21/18 Inhaler] inhaler Azithromycin [Zithromax Z-pack] 0 mg PO DIRECTED #6 tab 05/21/18 predniSONE 50 mg PO DAILY #5 tab 05/21/18 Allergies Allergy/AdvReac Type Severity Reaction Status Date / Time No Known Allergies Allergy Verified 05/21/18 14:19 Review of Systems ROS Statement: Those systems with pertinent positive or pertinent negative responses have been documented in the HPI. ROS Other: All systems not noted in ROS Statement are negative. 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 RLS, Parkinsons History of Any Multi-Drug Resistant Organisms: None Reported Past Surgical History: Cholecystectomy, Ear Surgery, Heart Catheterization, Orthopedic Surgery Additional Past Surgical History / Comment(s): 2006 cardiac cath-treated with medication, bilateral myringotomy/tubes which have fallen out, L carpal tunnel release, vasectomy. right wrist surgery for tendons. Past Anesthesia/Blood Transfusion Reactions: No Reported Reaction Past Psychological History: Anxiety, Depression, PTSD Smoking Status: Current every day smoker Past Alcohol Use History: Occasional Past Drug Use History: None Reported - Past Family History Father Family Medical History: Coronary Artery Disease (CAD), Myocardial Infarction (SC) Additional Family Medical History / Comment(s): Father at the age of 78yrs from his AICD/pacer failing. He had had a SC at the age of 72yrs. Mother Family Medical History: COPD, Respiratory Disorder Additional Family Medical History / Comment(s): Mother had severe COPD. She was a heavy smoker. She used home oxygen. She at the age of 88yrs. General Exam Limitations: no limitations General appearance: alert, in no apparent distress Head exam: Present: atraumatic, normocephalic Eye exam: Present: normal appearance, PERRL ENT exam: Present: normal exam Neck exam: Present: normal inspection. Absent: tenderness, meningismus Respiratory exam: Present: wheezes, rhonchi. Absent: respiratory distress Cardiovascular Exam: Present: regular rate, normal rhythm GI/Abdominal exam: Present: soft. Absent: distended, tenderness, guarding Extremities exam: Present: normal inspection, normal capillary refill. Absent: pedal edema, calf tenderness Neurological exam: Present: alert, oriented X3, CN II-XII intact. Absent: motor sensory deficit Psychiatric exam: Present: normal affect, normal mood Skin exam: Present: warm, dry, intact. Absent: cyanosis, diaphoretic Course Vital Signs 05/21/18 05/21/18 05/21/18 13:29 14:33 14:54 Temperature 98.4 F Pulse Rate 78 71 80 Respiratory 16 Rate Blood Pressure 154/83 O2 Sat by Pulse 100 Oximetry 05/21/18 15:16 Temperature Pulse Rate 70 Respiratory 16 Rate Blood Pressure 141/76 O2 Sat by Pulse 94 L Oximetry EKG Findings - EKG Comments: EKG Findings:: EKG: Normal sinus rhythm, rate of 77, MT interval 138, QRS duration 96, QTC 4:30, no ST segment elevation, Q-wave and T-wave inversion in lead 3 Medical Decision Making - Medical Decision Making 47-year-old male productive cough, dyspnea, hemoptysis. Patient is hemodynamically stable, well-appearing, scattered wheezing and rhonchi throughout the lung auscultation. Workup in the emergency department reveals nonischemic EKG, chest x-ray negative for focal pneumonia. Normal CBC was stable hemoglobin, normal CMP. D-dimer negative. Troponin negative. Patient will be prescribed antibiotic and steroids for COPD exacerbation. He will follow-up with his primary care physician. He states he is in the process of establishing care with a bingo clerk. Please return with worsening or changing symptoms. - Lab Data Result diagrams: 05/21/18 14:24 05/21/18 14:24 Lab Results 05/21/18 05/21/18 05/21/18 Range/Units 14:24 14:24 14:24 WBC 7.5 (3.8-10.6) k/uL RBC 4.37 (4.30-5.90) m/uL Hgb 13.5 (13.0-17.5) gm/dL Hct 39.3 (39.0-53.0) % MCV 89.8 (80.0-100.0) fL MCH 30.8 (25.0-35.0) pg MCHC 34.3 (31.0-37.0) g/dL RDW 13.6 (11.5-15.5) % Plt Count 235 (150-450) k/uL Neutrophils % 58 % Lymphocytes % 30 % Monocytes % 8 % Eosinophils % 2 % Basophils % 0 % Neutrophils # 4.4 (1.3-7.7) k/uL Lymphocytes # 2.2 (1.0-4.8) k/uL Monocytes # 0.6 (0-1.0) k/uL Eosinophils # 0.2 (0-0.7) k/uL Basophils # 0.0 (0-0.2) k/uL PT 10.1 (9.0-12.0) sec INR 0.9 (<1.2) APTT 26.7 (22.0-30.0) sec D-Dimer 0.39 (<0.60) mg/L FEU Sodium 141 (137-145) mmol/L Potassium 4.2 (3.5-5.1) mmol/L Chloride 108 H (98-107) mmol/L Carbon Dioxide 24 (22-30) mmol/L Anion Gap 9 mmol/L BUN 16 (9-20) mg/dL Creatinine 0.64 L (0.66-1.25) mg/dL Est GFR (CKD-EPI)AfAm >90 (>60 ml/min/1.73 sqM) Est GFR (CKD-EPI)NonAf >90 (>60 ml/min/1.73 sqM) Glucose 78 (74-99) mg/dL Calcium 9.4 (8.4-10.2) mg/dL Magnesium 2.1 (1.6-2.3) mg/dL Total Bilirubin 0.5 (0.2-1.3) mg/dL AST 26 (17-59) U/L ALT 34 (21-72) U/L Alkaline Phosphatase 63 (38-126) U/L Troponin I (0.000-0.034) ng/mL Total Protein 7.1 (6.3-8.2) g/dL Albumin 4.2 (3.5-5.0) g/dL 05/21/18 Range/Units 14:24 WBC (3.8-10.6) k/uL RBC (4.30-5.90) m/uL Hgb (13.0-17.5) gm/dL Hct (39.0-53.0) % MCV (80.0-100.0) fL MCH (25.0-35.0) pg MCHC (31.0-37.0) g/dL RDW (11.5-15.5) % Plt Count (150-450) k/uL Neutrophils % % Lymphocytes % % Monocytes % % Eosinophils % % Basophils % % Neutrophils # (1.3-7.7) k/uL Lymphocytes # (1.0-4.8) k/uL Monocytes # (0-1.0) k/uL Eosinophils # (0-0.7) k/uL Basophils # (0-0.2) k/uL PT (9.0-12.0) sec INR (<1.2) APTT (22.0-30.0) sec D-Dimer (<0.60) mg/L FEU Sodium (137-145) mmol/L Potassium (3.5-5.1) mmol/L Chloride (98-107) mmol/L Carbon Dioxide (22-30) mmol/L Anion Gap mmol/L BUN (9-20) mg/dL Creatinine (0.66-1.25) mg/dL Est GFR (CKD-EPI)AfAm (>60 ml/min/1.73 sqM) Est GFR (CKD-EPI)NonAf (>60 ml/min/1.73 sqM) Glucose (74-99) mg/dL Calcium (8.4-10.2) mg/dL Magnesium (1.6-2.3) mg/dL Total Bilirubin (0.2-1.3) mg/dL AST (17-59) U/L ALT (21-72) U/L Alkaline Phosphatase (38-126) U/L Troponin I <0.012 (0.000-0.034) ng/mL Total Protein (6.3-8.2) g/dL Albumin (3.5-5.0) g/dL Disposition Clinical Impression: COPD (chronic obstructive pulmonary disease) Disposition: HOME SELF-CARE Condition: Stable Instructions (If sedation given, give patient instructions): COPD (Chronic Obstructive Pulmonary Disease) (ED) Prescriptions: predniSONE 50 mg PO DAILY #5 tab Albuterol Inhaler [Ventolin Hfa Inhaler] 1 - 2 puff INHALATION Q4HR PRN #1 inhaler PRN Reason: Shortness Of Breath Azithromycin [Zithromax Z-pack] 0 mg PO DIRECTED #6 tab Is patient prescribed a controlled substance at d/c from ED?: No Referrals: [facility],Clinic [Primary Care Provider] - 1-2 days Time of Disposition: 15:49 Decision Date: 05/21/18
[2018-05-21 14:41] LABS: Basophils % (A) 0 %; Eosinophils # (A) 0.2 k/uL (0-0.7); Eosinophils % (A) 2 %; HCT 39.3 % (39.0-53.0); HGB 13.5 gm/dL (13.0-17.5); Lymphocytes # (A) 2.2 k/uL (1.0-4.8); Lymphocytes % (A) 30 %; MCH 30.8 pg (25.0-35.0); MCHC 34.3 g/dL (31.0-37.0); MCV 89.8 fL (80.0-100.0); Mean Platelet Volume 6.9; Monocytes # (A) 0.6 k/uL (0-1.0); Monocytes % (A) 8 %; Neutrophils # (A) 4.4 k/uL (1.3-7.7); Neutrophils % (A) 58 %; Platelet Count 235 k/uL (150-450); RBC 4.37 m/uL (4.30-5.90); RDW 13.6 % (11.5-15.5); WBC 7.5 k/uL (3.8-10.6)
[2018-05-21 14:52] LABS: D-Dimer 0.39 mg/L FEU (<0.60); INR 0.9 (<1.2); Partial Thromboplastin Time 26.7 sec (22.0-30.0); Prothrombin Time 10.1 sec (9.0-12.0)
[2018-05-21 14:55] LABS: ALT 34 U/L (21-72); AST 26 U/L (17-59); Albumin 4.2 g/dL (3.5-5.0); Alkaline Phosphatase 63 U/L (38-126); Anion Gap 9 mmol/L; Blood Urea Nitrogen 16 mg/dL (9-20); Calcium 9.4 mg/dL (8.4-10.2); Carbon Dioxide 24 mmol/L (22-30); Chloride 108 mmol/L (98-107); Glucose 78 mg/dL (74-99); Magnesium 2.1 mg/dL (1.6-2.3); Potassium 4.2 mmol/L (3.5-5.1); Sodium 141 mmol/L (137-145); Total Bilirubin 0.5 mg/dL (0.2-1.3); Total Protein 7.1 g/dL (6.3-8.2)
--- NOTE | 2018-05-21 15:10 | XR ---
EXAMINATION TYPE: XR chest 2V DATE OF EXAM: 05/21/2018 COMPARISON: 08/23/2017 HISTORY: Chest pain TECHNIQUE: Frontal and lateral views of the chest are obtained. FINDINGS: There is no focal air space opacity. No evidence for pneumothorax. No pleural effusion. The cardiac silhouette size is within normal limits. The osseous structures are grossly intact. IMPRESSION: 1. No acute cardiopulmonary process.
[2018-05-21 15:18] VITALS: BP 141/76; PULSE 70
== END 2018-05-21 15:58 | disposition home or self-care (01) ==
LOC: EC 13:27
DX: J44.1 Chronic obstructive pulmonary disease with (acute) exacerbation (principal); K21.9 Gastro-esophageal reflux disease without esophagitis; E78.5 Hyperlipidemia, unspecified; I10 Essential (primary) hypertension; G25.81 Restless legs syndrome; G20 Parkinson's disease; F41.9 Anxiety disorder, unspecified; F32.9 Major depressive disorder, single episode, unspecified; F43.10 Post-traumatic stress disorder, unspecified; F17.200 Nicotine dependence, unspecified, uncomplicated; G47.33 Obstructive sleep apnea (adult) (pediatric); Z99.89 Dependence on other enabling machines and devices; Z95.818 Presence of other cardiac implants and grafts; Z82.5 Family history of asthma and other chronic lower respiratory diseases; Z79.82 Long term (current) use of aspirin; Z79.51 Long term (current) use of inhaled steroids; Z79.899 Other long term (current) drug therapy
CPT/HCPCS: 36415; 94640; 93005; 85379; 80053; 83735; 84484; 85025; 85610; 85730; 71046; 99285; 96374; J2930

== ENCOUNTER → 2018-07-01 | Outpatient (CLI) | payer OTHER ==
--- NOTE | 2018-07-01 18:39 | CT ---
EXAMINATION TYPE: CT chest w con DATE OF EXAM: 07/01/2018 COMPARISON: Radiograph 06/21/2018 HISTORY: 27-year-old male hemoptysis X 4 months TECHNIQUE: Contiguous axial scanning of the chest after the administration of 100 mL of Isovue 300. Coronal/sagittal reconstructions performed. CT DLP: 841.4mGycm. Automatic exposure control utilized for a dose reduction. FINDINGS: Heart normal size without pericardial effusion. Mild coronary vessel calcifications are present. Aorta normal caliber with conventional arch vessel branching anatomy. Slightly low takeoff of the lef t vertebral artery from the proximal subclavian artery. Trace bilateral gynecomastia. No thoracic lymphadenopathy. There is left peribronchovascular masslike opacity extending from the bifurcation of the bronchus int ermedius significantly attenuating the lumen of the bronchus basalis, superior segment right lower lo be bronchus, and moderately attenuating the right middle lobe bronchus due to extrinsic mass effect. Mass measures approximately 4.7 cm. Some endobronchial opacity continues within the basilar segments of the right lower lobe where some p atchy groundglass is present. Mild centrilobular emphysema and mild bronchial wall thickening. No consolidation or pleural effusion otherwise seen. Calcified granulomas within the spleen. Partially visualized millimeter right renal calculus. Cholecy stectomy clips. Bones: Mild endplate spondylosis mid to lower thoracic spine. No osseous destructive process. IMPRESSION: 1. 4.7 cm irregular masslike opacity centered at the right bronchus basalis at the bifurcation of the bronchus intermedius. This significantly attenuates the lumen of the bronchus basalis and superior s egment right lower lobe bronchus. There is also extrinsic mass effect moderately narrowing the right middle lobe bronchus. Further workup for bronchogenic carcinoma is indicated. 2. Some mild generalized postobstructive pneumonitis throughout the right lower lobe.
== END | disposition home or self-care (01) ==
LOC: RADCTMAIN 16:23
PROVIDERS: ATTEND Internal Medicine
DX: J18.9 Pneumonia, unspecified organism (principal); R04.2 Hemoptysis
CPT/HCPCS: 71260; Q9967

== ENCOUNTER 2018-07-03 13:13 | Day surgery (SDC) | payer OTHER ==
[2018-07-01 15:29] VITALS: BMI 40.3
[~2018-07-03 13:13] MED LIST: ALBUTEROL NEB (CONC) 2.5 MG/0.5 ML INHALATION ONE; LACTATED RINGERS 1,000 ML IV SCH; LIDOCAINE 1% 20 ML VIAL (10MG/ML) FOR IV START INTRADERMA PRN; LIDOCAINE 2% (PF) 20 MG/ML 5 ML VIAL INHALATION ONE; LIDOCAINE VISCOUS 300 MG/15 ML CUP MUCOUS MEM ONE; SODIUM CHLORIDE 0.9% 1,000 ML IV SCH
[2018-07-03 13:45] VITALS: RESP 16; TEMP 96.9
[2018-07-03] MEDS ORDERED: MIDAZOLAM 2 MG/2 ML VIAL ONE (15:23)
[2018-07-03] MEDS ORDERED: KETAMINE 10 MG/ML 20 ML VIAL ONE (15:23)
[2018-07-03] MEDS ORDERED: PROPOFOL 10 MG/ML 20 ML VIAL IV ONE (15:23)
[2018-07-03] MEDS ORDERED: LIDOCAINE 1% INJ 10MG/ML (20 ML MDV) ONE (15:23)
[2018-07-03] MEDS ORDERED: GLYCOPYRROLATE 0.2 MG/ML 2 ML VIAL ONE (15:23)
[2018-07-03] MEDS ORDERED: fentaNYL (PF) 50 MCG/ML 2 ML AMP ONE (15:23)
[2018-07-03] MEDS ORDERED: LIDOCAINE 2% INJ 20 MG/ML INTRATRACH ONE (15:50)
[2018-07-03] MEDS ORDERED: EPINEPHrine 10 ML SYRINGE (0.1 MG/ML) MISCELLANE ONE (15:50)
[2018-07-03 16:04] VITALS: BP 127/77; PULSE 88
--- NOTE | 2018-07-04 07:24 | PCN ---
PROCEDURE NOTE PROCEDURE: 1. Bronchoscopy with endobronchial biopsy of right lower lobe endobronchial tumor. 2. Washings from the right lower lobe and brushings of the right lower lobe endobronchial tumor. PREOPERATIVE DIAGNOSIS: Right lower lobe mass. POSTOPERATIVE DIAGNOSIS: Right lower lobe mass. ANESTHESIA USED: IV conscious sedation. PROCEDURE DESCRIPTION: Patient was prepared according to the bronchoscopy protocol. O2 was applied via nasal cannula. Patient was placed in a supine position, and we monitored his O2 saturation continuously, blood pressure was intermittently monitored, and cardiac rhythm was continuously monitored. After adequate IV conscious sedation, the right naris was anesthetized with lidocaine, and the bronchoscope was advanced through the right naris down to the vocal cords. The vocal cords were patent, and lidocaine was applied over the vocal cords. The bronchoscope was advanced further down, and we had a thorough examination of the trachea, right upper lobe, flores, right middle lobe; however, there was a total occlusion of the right lower lobe bronchus. Could not visualize any of the segments of the right lower lobe. Multiple endobronchial biopsies were done from the area of the occlusion and abnormal mucosa noted in the right lower lobe bronchus. Multiple biopsies, these were endobronchial biopsies done, brushings, washings were done from the right lower lobe area. Minimal oozing was noted from the area of the biopsies and brushings, epinephrine was applied to the area to minimize the bleeding. Then the left side was examined. No evidence of any endobronchial pathology noted on the left side. The procedure was well tolerated. No evidence of any immediate complications. MMODL / IJN: [id number] /
== END 2018-07-03 16:45 | disposition home or self-care (01) ==
LOC: ORWHC2ENDO 13:13
PROVIDERS: ATTEND Internal Medicine
DX: C34.31 Malignant neoplasm of lower lobe, right bronchus or lung (principal); J44.9 Chronic obstructive pulmonary disease, unspecified; R04.2 Hemoptysis; E11.9 Type 2 diabetes mellitus without complications; G47.33 Obstructive sleep apnea (adult) (pediatric); E66.9 Obesity, unspecified; Z68.41 Body mass index [BMI] 40.0-44.9, adult; K21.9 Gastro-esophageal reflux disease without esophagitis; I10 Essential (primary) hypertension; J32.9 Chronic sinusitis, unspecified; K22.70 Barrett's esophagus without dysplasia; F17.210 Nicotine dependence, cigarettes, uncomplicated; N40.0 Benign prostatic hyperplasia without lower urinary tract symptoms; G20 Parkinson's disease; F32.9 Major depressive disorder, single episode, unspecified; Z79.899 Other long term (current) drug therapy; Z90.49 Acquired absence of other specified parts of digestive tract; Z77.098 Contact with and (suspected) exposure to other hazardous, chiefly nonmedicinal, chemicals; Z91.09 Other allergy status, other than to drugs and biological substances; Z82.49 Family history of ischemic heart disease and other diseases of the circulatory system; Z82.5 Family history of asthma and other chronic lower respiratory diseases
CPT/HCPCS: 94640; 88104; 88108; 88305; 87070; 87205; 87102; 31625; 31623; 31624; J2001 ×3; J2250; J0171; J3010; J2704; 88341; 88342

== ENCOUNTER → 2018-08-02 | Outpatient (CLI) | payer OTHER ==
--- NOTE | 2018-08-05 16:04 | PE ---
EXAMINATION TYPE: PET CT fusion skull to thigh DATE OF EXAM: 08/02/2018 COMPARISON: CT chest dated 07/01/2018 HISTORY: Right lung cancer, initial staging exam. No prior chemotherapy, surgery, or radiation therap y. TECHNIQUE: Following the intravenous administration of 10.615 mCi of F-18 FDG, whole body images are performed from the skull base to the midthigh. Images are reviewed on the computer in the coronal, axial, and sagittal planes. Reconstructed rotating images are created on independent workstation and reviewed on the computer. A localization and attenuation correction CT is performed in conjunction with the PET scan. SCAN: Initial FINDINGS: Abdominal background: 2.53 Background: 1.4 SKULL BASE AND NECK: There is focal uptake at the level of the used in the within the posterior tongu e on the left with a maximum SUV of 6.3. CHEST, MEDIASTINUM, AND HILAR REGION: The known bright perihilar mass that previously measured approx imately 4.7 cm on the exam of 07/01/2018 is hypermetabolic with a maximum SUV of 8.67. This is compatib le with primary lung carcinoma and results in endobronchial narrowing of the right lower lobe bronchu s, right middle lobe bronchus, and to a lesser degree of the right upper lobe bronchus. Underlying ce ntrilobular emphysema is mild. Downstream pneumonitis is seen of the right lower lobe with uptake hemant t is below mediastinal background and hypometabolic. Right middle subsegmental atelectasis is seen as a result of the bronchial narrowing. ABDOMEN AND PELVIS: No suspicious hypermetabolic activity. OSSEOUS STRUCTURES: No suspicious hypermetabolic activity. OTHER CT: Calcified splenic granulomas are again noted. Gallbladder is surgically absent. Small laryn geal diverticulum is seen on image 74 to the right. As discussed above multifocal airspace disease in the right lower lobe and atelectasis in the right middle lobe is seen. No pulmonary masses seen on t he left. 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 Mild mucosal thicke oseas in the left maxillary sinus is noted. Mild degenerative changes of the cervical spine with moder ate of the thoracic and lumbar spine. Probable bone islands are seen within the right femur that are not hypermetabolic. Left hilar granulomas noted with moderate coronary artery calcifications also see n in the thorax. Very small hiatal is present. There is suspected mild degree hepatic steatosis. Few prominent but nonenlarged gastrohepatic lymph nodes are present. No adrenal mass. Punctate 1 mm left renal calculus is seen with approximately 7 mm right renal calculus present. Moderate atherosclerosis of the abdominal aorta. No dilated large or small bowel. IMPRESSION: 1. Findings compatible with right perihilar bronchogenic carcinoma with downstream pneumonitis/pneumo isauro of the right lower lobe and multifocal endobronchial narrowing resulting in right middle lobe ate lectasis. 2. No evidence of mediastinal invasion, no mediastinal adenopathy, no supraclavicular adenopathy, no pleural effusion, no infradiaphragmatic metastasis, and no contralateral pulmonary nodule. 3. Focal uptake within the posterior tongue at the level of the uvula is seen with a maximum SUV of 6 .3 that could relate to asymmetric physiologic lymphoid tissue uptake however direct visualization is recommended to exclude neoplasm.
== END | disposition home or self-care (01) ==
LOC: RADPETMAIN 14:30
PROVIDERS: ATTEND Physician Assistant Medical
DX: C34.01 Malignant neoplasm of right main bronchus (principal); J18.1 Lobar pneumonia, unspecified organism; J98.11 Atelectasis; R94.8 Abnormal results of function studies of other organs and systems
CPT/HCPCS: 78815; A9552

== ENCOUNTER → 2019-03-07 | Outpatient (CLI) | payer OTHER ==
--- NOTE | 2019-03-12 10:22 | PE ---
EXAMINATION TYPE: PET CT fusion skull to thigh DATE OF EXAM: 03/07/2019 COMPARISON: Chest CT dated 07/01/2018 and PET/CT dated 08/02/2018 HISTORY: Right perihilar lung cancer treated with surgical resection on in September 2018 chemotherapy o n 02/27/2018. No prior radiation. TECHNIQUE: Following the intravenous administration of 12.8 mCi of F-18 FDG, whole body images are p erformed from the skull base to the midthigh. Images are reviewed on the computer in the coronal, ax ial, and sagittal planes. Reconstructed rotating images are created on independent workstation and r eviewed on the computer. A localization and attenuation correction CT is performed in conjunction w ith the PET scan. SCAN: Subsequent treatment strategy FINDINGS: Of note, SUV values are slightly limited as error occurred secondary to large patient body habitus. Mediastinal background: 1.8 Abdominal background: 2.7 SKULL BASE AND NECK: The previously seen hypermetabolic uptake of the tongue base is decrease in com parison to the prior and now appears physiologic. CHEST, MEDIASTINUM, AND HILAR REGION: Presumed postsurgical change of a thoracotomy is seen with post erior rib fracture of rib 6 on the right with hypermetabolic activity an adjacent elliptical density, possible hematoma/seroma. The density measures upper limits of normal for fluid and is 4.7 x 1.5 cm in size. This has a maximum SUV of 2.12, just above mediastinal background. The previously seen right perihilar mass has been resected. No hypermetabolic uptake at the surgical site. There is a trace right pleural effusion with slight hypermetabolic uptake in maximum SUV of 2.7. ABDOMEN AND PELVIS: No suspicious hypermetabolic uptake. OSSEOUS STRUCTURES: No suspicious hypermetabolic uptake. OTHER CT: Benign left hilar granulomas are seen. Calcified benign splenic granulomas are also noted. Paranasal sinuses and mastoid air cells appear well aerated. No mediastinal adenopathy is seen. Moder ate to severe three-vessel coronary artery calcifications. Mediastinal shift to the right with volume loss on the right from partial lobectomy. Gallbladder surgically absent. Moderate atheromatous arciniega es of the abdominal aorta and its branches. Urinary bladder is decompressed giving the appearance of urinary bladder wall thickening. There is a 6 mm nonobstructing right renal calculus. Mild degenerati ve changes of the spine. Benign calcified granuloma in the left upper lung. Scattered areas of subseg mental atelectasis. No new suspicious pulmonary mass. IMPRESSION: 1. Surgical resection of the right perihilar bronchogenic carcinoma with no residual hypermetabolic u ptake at the surgical site. Trace right pleural effusion has uptake just above mediastinal background and is of low suspicion for metastatic effusion. No new hypermetabolic mediastinal adenopathy. 2. Rib fracture and adjacent pleural mass/hematoma or seroma are presumed to be postsurgical from tho racotomy. Correlate with surgical operative note and physical examination for the patient's scar.
== END | disposition home or self-care (01) ==
LOC: RADPETMAIN 13:16
PROVIDERS: ATTEND Internal Medicine Hematology & Oncology
DX: C34.31 Malignant neoplasm of lower lobe, right bronchus or lung (principal); Z51.11 Encounter for antineoplastic chemotherapy
CPT/HCPCS: 78815; A9552

== ENCOUNTER 2019-03-20 10:47 | Emergency (ER) | payer OTHER ==
--- NOTE | 2019-03-20 12:01 | XR ---
EXAMINATION TYPE: XR chest 2V DATE OF EXAM: 03/20/2019 COMPARISON: 05/21/2018 HISTORY: Shortness of breath TECHNIQUE: Frontal and lateral views of the chest are obtained. FINDINGS: Scattered senescent parenchymal changes noted. Hyperinflation compatible with COPD. Elevated right hemidiaphragm. Small right-sided pleural effusion with underlying atelectasis or infil trate difficult to exclude. Correlate clinically.. Heart size is stable. Mediastinal structures are stable and grossly unremarkable. No evidence for hilar prominence. Degenerative changes dorsal spine. IMPRESSION: 1. Elevated right hemidiaphragm. Small right-sided pleural effusion with underlying atelectasis or in filtrate difficult to exclude. Correlate clinically.
[2019-03-20] MEDS ORDERED: hydrALAZINE HCL 20 MG/ML 1 ML VIAL IVP STA (12:08)
[2019-03-20 12:12] LABS: Basophils # (A) 0.1 k/uL (0-0.2); Basophils % (A) 2 %; Eosinophils # (A) 0.1 k/uL (0-0.7); Eosinophils % (A) 1 %; HCT 42.1 % (39.0-53.0); HGB 14.4 gm/dL (13.0-17.5); Lymphocytes # (A) 2.6 k/uL (1.0-4.8); Lymphocytes % (A) 37 %; MCHC 34.2 g/dL (31.0-37.0); MCV 90.7 fL (80.0-100.0); Mean Platelet Volume 7.8; Monocytes # (A) 0.7 k/uL (0-1.0); Monocytes % (A) 10 %; Neutrophils # (A) 3.2 k/uL (1.3-7.7); Neutrophils % (A) 46 %; Platelet Count 244 k/uL (150-450); RBC 4.64 m/uL (4.30-5.90); RDW 15.9 % (11.5-15.5)
[2019-03-20 12:16] LABS: ALT 28 U/L (4-49); AST 39 U/L (17-59); African American GFR (CKD) >90 (>60 ml/min/1.73 sqM); Albumin 4.5 g/dL (3.5-5.0); Alkaline Phosphatase 97 U/L (38-126); Anion Gap 12 mmol/L; Blood Urea Nitrogen 12 mg/dL (9-20); Carbon Dioxide 21 mmol/L (22-30); Chloride 108 mmol/L (98-107); Glucose 95 mg/dL (74-99); Non-African American GFR(CKD) >90 (>60 ml/min/1.73 sqM); Sodium 141 mmol/L (137-145); Total Bilirubin 0.5 mg/dL (0.2-1.3); Total Protein 7.8 g/dL (6.3-8.2)
[2019-03-20 12:23] LABS: Potassium 4.7 mmol/L (3.5-5.1)
[2019-03-20 12:48] VITALS: RESP 18
[2019-03-20 13:18] LABS: Appearance,Urine Clear (Clear); Bilirubin,Urine Negative (Negative); Blood,Urine Negative (Negative); Color,Urine Yellow; Glucose,Urine (UA) Negative (Negative); Ketones,Urine Negative (Negative); Leukocyte Esterase,Urine Negative (Negative); Nitrite,Urine Negative (Negative); Protein,Urine Negative (Negative); Specific Gravity,Urine 1.012 (1.001-1.035); Urobilinogen,Urine <2.0 mg/dL (<2.0)
--- NOTE | 2019-03-20 13:46 | ED ---
Recheck HPI - General Chief Complaint: Recheck/Abnormal Lab/Rx Stated Complaint: elevated BP Time Seen by Provider: 03/20/19 11:04 Source: patient Mode of arrival: ambulatory Limitations: no limitations - History of Present Illness Initial Comments: 48-year-old male with history of tonsil and lung cancer with previous right sided lobectomy presenting to the emergency department today for chief complaint of sent by outpatient clinic for elevated blood pressure. Patient states he has no current complaints he states that he has not been taking his blood pressure medication since he was on chemotherapy because initially had too much vomiting. Patient denies any recent vomiting. Patient denies any chest pain shortness of breath nausea vomiting diarrhea headache dizziness decreased urine output back pain neck pain. Patient states that he has no weakness of the upper or lower extremities speech changes or visual changes. Patient states that he only has had a cough for the past month denies fevers or sputum production. He states that his outpatient provider was going to order a chest x-ray for pneumonia beside him instead for elevated blood pressure. Remaining review of system negative upon arrival patient appears well there is no signs of acute distress - Related Data Home Medications Medication Instructions Recorded Confirmed Cetirizine HCl [Zyrtec] 10 mg PO HS 05/07/17 07/03/18 Fluticasone Nasal [place] [Flonase 1 spray EA NOSTRIL BID PRN 05/07/17 07/03/18 Nasal [place]] Lidocaine 4% Cream [Lmx 4] 1 applic TOPICAL DAILY PRN 05/07/17 07/03/18 Loperamide [Imodium] 4 mg PO BID 05/07/17 07/03/18 Omeprazole [PriLOSEC] 40 mg PO BID 05/07/17 07/03/18 Sertraline [Zoloft] 100 mg PO HS 05/07/17 07/03/18 Tiotropium 18 Mcg/Puff [Spiriva] 1 cap INHALATION RT-DAILY 05/07/17 07/03/18 buPROPion HCL [Wellbutrin SR] 150 mg PO DAILY 05/07/17 07/03/18 Aspirin EC [Ecotrin Low Dose] 81 mg PO DAILY 07/25/17 07/01/18 Albuterol Inhaler [Ventolin Hfa 1 - 2 puff INHALATION RT-QID PRN 08/23/17 07/03/18 Inhaler] Sodium Bicarbonate Tab 1,300 mg PO BID 08/23/17 07/03/18 Gabapentin [Neurontin] 100 mg PO QAM 05/21/18 07/03/18 Gabapentin [Neurontin] 200 mg PO HS 05/21/18 07/03/18 rOPINIRole HCL [Requip] 1 mg PO BID 05/21/18 07/03/18 Benzonatate [Benzonatate Perle] 200 mg PO DAILY PRN 07/01/18 07/03/18 Carbidopa-Levodopa 25-100 mg 1 tab PO DAILY 07/01/18 07/03/18 [Sinemet 25-100 mg] DULoxetine HCL [Cymbalta] 60 mg PO QAM 07/01/18 07/03/18 Divalproex [Depakote] 500 mg PO BID 07/01/18 07/03/18 Ferrous Sulfate [Feosol] 325 mg PO DAILY 07/01/18 07/03/18 Simvastatin 40 mg PO DAILY 07/01/18 07/03/18 Tamsulosin HCl [Flomax] 0.4 mg PO DAILY 07/01/18 07/03/18 hydrOXYzine PAMOATE 50 mg PO BID PRN 07/01/18 07/03/18 Previous Rx's Medication Instructions Recorded Verapamil Sr [Isoptin Sr] 120 mg PO HS #30 tablet.er 07/25/17 Azithromycin [Zithromax Z-pack] 0 mg PO DIRECTED #6 tab 03/20/19 Allergies Allergy/AdvReac Type Severity Reaction Status Date / Time No Known Allergies Allergy Verified 07/03/18 13:21 Review of Systems ROS Statement: Those systems with pertinent positive or pertinent negative responses have been documented in the HPI. ROS Other: All systems not noted in ROS Statement are negative. Past Medical History Past Medical History: Asthma, Cancer, COPD, GERD/Reflux, Hyperlipidemia, Hypertension, Memory Impairment, Osteoarthritis (OA), Rheumatoid Arthritis (RA), Sleep Apnea/CPAP/BIPAP Additional Past Medical History / Comment(s): hx of hemoptysis, freq bronchitis, Barretts esophagus, restless leg, IBS. 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 RLS, Parkinsons, lung and tonsil ca History of Any Multi-Drug Resistant Organisms: None Reported Past Surgical History: Cholecystectomy, Ear Surgery, Heart Catheterization, Orthopedic Surgery, Tonsillectomy Additional Past Surgical History / Comment(s): 2006 cardiac cath, bilateral myringotomy/tubes, L carpal tunnel release, vasectomy. right wrist surgery for tendons. EGD, right middle and lower lobe lung removal Past Anesthesia/Blood Transfusion Reactions: No Reported Reaction Past Psychological History: Anxiety, Depression, PTSD Smoking Status: Current every day smoker Past Alcohol Use History: None Reported Past Drug Use History: Marijuana - Past Family History Father Family Medical History: Coronary Artery Disease (CAD), Myocardial Infarction (AR) Additional Family Medical History / Comment(s): Father at the age of 78yrs from his AICD/pacer failing. He had had a AR at the age of 72yrs. Mother Family Medical History: COPD, Respiratory Disorder Additional Family Medical History / Comment(s): Mother had severe COPD. She was a heavy smoker. She used home oxygen. She at the age of 88yrs. General Exam - General Exam Comments Initial Comments: General: The patient is awake and alert, in no distress, and does not appear acutely ill. Eye: +3 mm pupils are equal, round and reactive to light, extra-ocular movements are intact. No nystagmus. There is normal conjunctiva bilaterally. No signs of icterus. Ears, nose, mouth and throat: There are moist mucous membranes and no oral lesions. Neck: The neck is supple, there is no tenderness or JVD. Cardiovascular: There is a regular rate and rhythm. No murmur, rub or gallop is appreciated. Respiratory: Lungs are clear to auscultation, respirations are non-labored, breath sounds are equal. No wheezes, stridor, rales, or rhonchi. Gastrointestinal: Soft, non-distended, non-tender abdomen without masses or organomegaly noted. There is no rebound or guarding present. Musculoskeletal: Normal ROM, no tenderness. Strength 5/5. Sensation intact. Pulses equal bilaterally 2+. Neurological: A&O x 3. CN II-XII intact, There are no obvious motor or sensory deficits. Coordination appears grossly intact. Speech is normal. Skin: Skin is warm and dry and no rashes or lesions are noted. No LE edema. Psychiatric: Cooperative, appropriate mood & affect, normal judgment. Limitations: no limitations Course Vital Signs 03/20/19 03/20/19 03/20/19 10:51 11:53 12:45 Temperature 97.6 F Pulse Rate 86 70 Respiratory 19 18 Rate Blood Pressure 179/105 181/110 164/95 O2 Sat by Pulse 100 95 Oximetry 03/20/19 03/20/19 13:34 13:56 Temperature 98 F Pulse Rate 88 84 Respiratory 18 18 Rate Blood Pressure 158/97 162/98 O2 Sat by Pulse 99 97 Oximetry Medical Decision Making - Medical Decision Making Very well-appearing, pleasant 48-year-old male presenting today for chief complaint of elevated blood pressure. No symptoms has had cough for the past month denies shortness of breath or hemoptysis. Patient's blood pressure elevated there is no signs of end organ damage from history taking nor patient's laboratory or imaging studies there is noted small right-sided pleural effusion. Difficult to discern if this is chronic or acute. Unable to rule out sup erimposed infection such as pneumonia. However patient has no leukocytosis no history of fevers. He appears well nontoxic at this time we feel patient stay for discharge with close primary care follow-up for pleural effusion and instructed patient to begin his antihypertensive medications which patient states he has at home. Patient prefers discharge, and was agreeable to care plan. Discussed strict return parameters patient verbalized understanding Discussed case with Dr. Jean who reviewed imaging, EKG and labs he is agreeable to care plan at this time. - Lab Data Result diagrams: 03/20/19 11:30 03/20/19 11:30 Lab Results 03/20/19 03/20/19 03/20/19 Range/Units 11:30 11:30 11:30 WBC 7.0 (3.8-10.6) k/uL RBC 4.64 (4.30-5.90) m/uL Hgb 14.4 (13.0-17.5) gm/dL Hct 42.1 (39.0-53.0) % MCV 90.7 (80.0-100.0) fL MCH 31.0 (25.0-35.0) pg MCHC 34.2 (31.0-37.0) g/dL RDW 15.9 H (11.5-15.5) % Plt Count 244 (150-450) k/uL Neutrophils % 46 % Lymphocytes % 37 % Monocytes % 10 % Eosinophils % 1 % Basophils % 2 % Neutrophils # 3.2 (1.3-7.7) k/uL Lymphocytes # 2.6 (1.0-4.8) k/uL Monocytes # 0.7 (0-1.0) k/uL Eosinophils # 0.1 (0-0.7) k/uL Basophils # 0.1 (0-0.2) k/uL Sodium 141 (137-145) mmol/L Potassium 4.7 (3.5-5.1) mmol/L Chloride 108 H (98-107) mmol/L Carbon Dioxide 21 L (22-30) mmol/L Anion Gap 12 mmol/L BUN 12 (9-20) mg/dL Creatinine 0.52 L (0.66-1.25) mg/dL Est GFR (CKD-EPI)AfAm >90 (>60 ml/min/1.73 sqM) Est GFR (CKD-EPI)NonAf >90 (>60 ml/min/1.73 sqM) Glucose 95 (74-99) mg/dL Calcium 9.0 (8.4-10.2) mg/dL Total Bilirubin 0.5 (0.2-1.3) mg/dL AST 39 (17-59) U/L ALT 28 (4-49) U/L Alkaline Phosphatase 97 (38-126) U/L Troponin I <0.012 (0.000-0.034) ng/mL Total Protein 7.8 (6.3-8.2) g/dL Albumin 4.5 (3.5-5.0) g/dL Urine Color Urine Appearance (Clear) Urine pH (5.0-8.0) Ur Specific [place] (1.001-1.035) Urine Protein (Negative) Urine Glucose (UA) (Negative) Urine Ketones (Negative) Urine Blood (Negative) Urine Nitrite (Negative) Urine Bilirubin (Negative) Urine Urobilinogen (<2.0) mg/dL Ur Leukocyte Esterase (Negative) 03/20/19 Range/Units 12:30 WBC (3.8-10.6) k/uL RBC (4.30-5.90) m/uL Hgb (13.0-17.5) gm/dL Hct (39.0-53.0) % MCV (80.0-100.0) fL MCH (25.0-35.0) pg MCHC (31.0-37.0) g/dL RDW (11.5-15.5) % Plt Count (150-450) k/uL Neutrophils % % Lymphocytes % % Monocytes % % Eosinophils % % Basophils % % Neutrophils # (1.3-7.7) k/uL Lymphocytes # (1.0-4.8) k/uL Monocytes # (0-1.0) k/uL Eosinophils # (0-0.7) k/uL Basophils # (0-0.2) k/uL Sodium (137-145) mmol/L Potassium (3.5-5.1) mmol/L Chloride (98-107) mmol/L Carbon Dioxide (22-30) mmol/L Anion Gap mmol/L BUN (9-20) mg/dL Creatinine (0.66-1.25) mg/dL Est GFR (CKD-EPI)AfAm (>60 ml/min/1.73 sqM) Est GFR (CKD-EPI)NonAf (>60 ml/min/1.73 sqM) Glucose (74-99) mg/dL Calcium (8.4-10.2) mg/dL Total Bilirubin (0.2-1.3) mg/dL AST (17-59) U/L ALT (4-49) U/L Alkaline Phosphatase (38-126) U/L Troponin I (0.000-0.034) ng/mL Total Protein (6.3-8.2) g/dL Albumin (3.5-5.0) g/dL Urine Color Yellow Urine Appearance Clear (Clear) Urine pH 8.0 (5.0-8.0) Ur Specific [place] 1.012 (1.001-1.035) Urine Protein Negative (Negative) Urine Glucose (UA) Negative (Negative) Urine Ketones Negative (Negative) Urine Blood Negative (Negative) Urine Nitrite Negative (Negative) Urine Bilirubin Negative (Negative) Urine Urobilinogen <2.0 (<2.0) mg/dL Ur Leukocyte Esterase Negative (Negative) Disposition Clinical Impression: Pleural effusion, Cough, Elevated blood pressure reading Disposition: HOME SELF-CARE Condition: Good Instructions (If sedation given, give patient instructions): Hypertension (ED) Additional Instructions: Please use medication as discussed. Please follow-up with family doctor in the next 2 days. Please return to emergency room if the symptoms increase or worsen or for any other concerns. Prescriptions: Azithromycin [Zithromax Z-pack] 0 mg PO DIRECTED #6 tab Is patient prescribed a controlled substance at d/c from ED?: No Referrals: [facility],Clinic [Primary Care Provider] - 1-2 days Time of Disposition: 13:45
[2019-03-20 13:56] VITALS: BP 162/98; PULSE 84; TEMP 98
== END 2019-03-20 13:55 | disposition home or self-care (01) ==
LOC: EC 10:47
DX: I10 Essential (primary) hypertension (principal); J90 Pleural effusion, not elsewhere classified; E78.5 Hyperlipidemia, unspecified; J44.9 Chronic obstructive pulmonary disease, unspecified; K21.9 Gastro-esophageal reflux disease without esophagitis; G25.81 Restless legs syndrome; G20 Parkinson's disease; F41.9 Anxiety disorder, unspecified; F32.9 Major depressive disorder, single episode, unspecified; F43.10 Post-traumatic stress disorder, unspecified; F17.200 Nicotine dependence, unspecified, uncomplicated; G47.33 Obstructive sleep apnea (adult) (pediatric); Z99.89 Dependence on other enabling machines and devices; Z85.118 Personal history of other malignant neoplasm of bronchus and lung; Z85.818 Personal history of malignant neoplasm of other sites of lip, oral cavity, and pharynx; Z92.21 Personal history of antineoplastic chemotherapy; Z95.818 Presence of other cardiac implants and grafts; Z79.82 Long term (current) use of aspirin; Z79.899 Other long term (current) drug therapy
CPT/HCPCS: 36415; 93005; 80053; 84484; 85025; 81003; 71046; 99284; 96374; J0360

== ENCOUNTER → 2019-07-04 | Outpatient (CLI) | payer OTHER ==
--- NOTE | 2019-07-06 16:27 | PE ---
Nuclear medicine PET/CT HISTORY: Lung carcinoma, subsequent Patient received 11.5 mCi F-18 FDG intravenously in delayed scanning was performed from the skull bas e to the mid thighs. Localization and attenuation correction CT scan was performed. Correlation to prior exam nuclear medicine PET/CT 03/07/2019 neck and CHEST: There is no evident cervical or supraclavicular adenopathy. No suspicious hypermetabo lic uptake. No mediastinal, axillary, or hilar adenopathy. There are dense coronary artery calcificat ions. I'm loss is present in the right hemithorax. Small probable chronic and organized right pleural fluid collection shows a stable appearance of the posterior lung base. No evident lung mass. ABDOMEN: There is no adrenal mass. No evident liver mass or retroperitoneal adenopathy. Patient is po st cholecystectomy. No suspicious hypermetabolic uptake. Calcifications in the spleen are noted. Surg ical clip is present adjacent to the third portion of the duodenum. Probable physiologic uptake withi n the bowel. Osseous structures show no focal hypermetabolic uptake. IMPRESSION: Postop changes. No evident recurrence.
== END | disposition home or self-care (01) ==
LOC: RADPETMAIN 10:02
PROVIDERS: ATTEND Internal Medicine Hematology & Oncology
DX: C34.31 Malignant neoplasm of lower lobe, right bronchus or lung (principal); Z98.890 Other specified postprocedural states
CPT/HCPCS: 78815; A9552

== ENCOUNTER → 2019-11-04 | Outpatient (CLI) | payer OTHER ==
--- NOTE | 2019-11-05 08:20 | XR ---
EXAMINATION TYPE: XR chest 2V DATE OF EXAM: 11/04/2019 COMPARISON: 04/14/2019 TECHNIQUE: PA and lateral views submitted. HISTORY: Shortness of breath FINDINGS: Postsurgical change involving the rib cage with right-sided consolidation, volume loss and pleural ef fusion are stable. Left lung is clear. Heart size normal. No overt failure. No pneumothorax. IMPRESSION: 1. Volume loss with right-sided consolidation and pleural effusion are stable.
== END | disposition home or self-care (01) ==
LOC: RADXRMAIN 16:22
PROVIDERS: ATTEND Internal Medicine Hematology & Oncology
DX: C34.31 Malignant neoplasm of lower lobe, right bronchus or lung (principal); C76.0 Malignant neoplasm of head, face and neck; J90 Pleural effusion, not elsewhere classified; G20 Parkinson's disease; Z71.3 Dietary counseling and surveillance
CPT/HCPCS: 71046

== ENCOUNTER → 2019-12-05 | Outpatient (CLI) | payer OTHER ==
--- NOTE | 2019-12-05 11:48 | PE ---
EXAMINATION TYPE: PET CT fusion skull to thigh DATE OF EXAM: 12/05/2019 COMPARISON: Prior PET/CT Jul 04 2019 and older studies. HISTORY: Lung and throat cancer progress study. Diagnosed June 2018 in the right lung and throat can cer summer 2019 with subsequent surgery. Completed recent radiation treatment to throat. Completed ch emotherapy February 2019 TECHNIQUE: Following the intravenous administration of 11.52mCi of F-18 FDG, whole body images are p erformed from the skull base to the midthigh. Images are reviewed on the computer in the coronal, ax ial, and sagittal planes. Reconstructed rotating images are created on independent workstation and r eviewed on the computer. A noncontrast CT is performed in conjunction with the PET scan. Dedicated PET/CT imaging of the neck. SCAN: Subsequent Scan FINDINGS: SKULL BASE AND NECK: No new areas of suspicious hypermetabolic uptake. CHEST, MEDIASTINUM, AND HILAR REGION: Persistent right-sided volume loss with inferior surgical sutur es. Stable small right basilar pleural effusion or thickening. No new suspicious hypermetabolic uptak e. ABDOMEN AND PELVIS: Normal excretion is present. No new areas of suspicious hypermetabolic uptake. No new adrenal masses. OSSEOUS STRUCTURES: No new areas of abnormal hypermetabolic uptake. OTHER CT: Background mild to borderline moderate underlying emphysematous change. Moderate to severe three-vessel coronary artery calcification redemonstrated. Prominent right and left pulmonary arterie s, CT findings suggesting underlying pulmonary artery hypertension. Cholecystectomy clips. Multiple calcifications throughout the spleen presumed product of old granulom atous disease. Nonobstructing 6 mm calculus right kidney axial image 161 redemonstrated. Mildly enlar ged prostate gland consistent with BPH. Right-sided pelvic phleboliths. IMPRESSION: No suspicious hypermetabolic uptake to suggest active neoplastic recurrence.
== END | disposition home or self-care (01) ==
LOC: RADPETMAIN 09:18
PROVIDERS: ATTEND Internal Medicine Hematology & Oncology
DX: C76.0 Malignant neoplasm of head, face and neck (principal); Z92.21 Personal history of antineoplastic chemotherapy
CPT/HCPCS: 78815; A9552

== ENCOUNTER 2020-01-08 08:11 | Day surgery (SDC) | payer OTHER ==
[2020-01-06 12:25] VITALS: BMI 30.4
[~2020-01-08 08:11] MED LIST changes: -ALBUTEROL NEB (CONC) 2.5 MG/0.5 ML INHALATION ONE; -LIDOCAINE 1% 20 ML VIAL (10MG/ML) FOR IV START INTRADERMA PRN; -LIDOCAINE 2% (PF) 20 MG/ML 5 ML VIAL INHALATION ONE; -LIDOCAINE VISCOUS 300 MG/15 ML CUP MUCOUS MEM ONE; -SODIUM CHLORIDE 0.9% 1,000 ML IV SCH
[2020-01-08 08:30] VITALS: RESP 16; TEMP 97.3
[2020-01-08 08:45] LABS: Glucose,Whole Blood 100 mg/dL (75-99)
[2020-01-08] MEDS ORDERED: PROPOFOL 10 MG/ML 20 ML VIAL IV ONE (08:47)
[2020-01-08] MEDS ORDERED: LACTATED RINGERS 1,000 ML IV ONE (09:38)
--- NOTE | 2020-01-08 09:53 | P.PCN ---
Date of Procedure: 01/08/20 Description of Procedure: BRIEF HISTORY: Patient is a 49-year-old male presenting for outpatient colonoscopy for screening for malignant neoplasm of the colon. No family history of colon cancer. No change in bowel habits or blood per rectum. PROCEDURE PERFORMED: Colonoscopy with polypectomy, Endo Clip placement. PREOPERATIVE DIAGNOSIS: Screening for malignant neoplasm of the colon, no prior colonoscopy. ESTIMATED BLOOD LOSS: Minimal. IV sedation per Anesthesia. PROCEDURE: After informed consent was obtained, the patient, was brought into the endoscopy unit. IV sedation was administered by Anesthesia under continuous monitoring. Digital rectal examination was normal. Initially the Olympus CF-190 flexible video colonoscope was then inserted in the rectum, gradually advanced into the cecum without any difficulty. Careful examination was performed as the scope was gradually being withdrawn. Ileocecal valve and the appendiceal orifice were visualized and appeared normal. Prep was excellent. Mucosa of the cecum, ascending colon, transverse colon, descending colon, sigmoid colon, and rectum appeared normal. The patient had 2 polyps removed with cold snare polypectomy one measuring 4 mm in size from the descending colon and one measuring 8 mm in size from the sigmoid flexure. Flat 3 cm cecal polyp likely tubulovillous in nature removed with hot snare polypectomy with Endo Clip placement. Large pedunculated hepatic flexure polyp measuring 2 cm in size removed with hot snare polypectomy. Pedunculated transverse colon polyp measuring 1.3 cm in size removed with hot snare polypectomy. A Collins net was used to remove the larger polyps. Retroflexion was performed in the rectum and no lesions were seen. The patient tolerated the procedure well. IMPRESSION: Large flat tubulovillous-appearing polyp in the cecum removed with hot snare, with Endo Clip placement. 2 large pedunculated polyps removed with hot snare polypectomy the hepatic flexure and transverse colon. Cold snare polypectomy of 2 polyps from the descending colon and splenic flexure RECOMMENDATIONS: Findings of this examination were discussed with the patient and his family. Okay to resume diet. Okay to resume medications. Await pathology from polypectomies. Recommend repeat colonoscopy in 1 year given the high risk colon polyps, pending the pathology from polypectomies.
[2020-01-08 10:12] VITALS: BP 117/77; PULSE 72
== END 2020-01-08 10:41 | disposition home or self-care (01) ==
LOC: ORWHC2ENDO 08:11
PROVIDERS: ATTEND Internal Medicine
DX: K51.40 Inflammatory polyps of colon without complications (principal); D12.0 Benign neoplasm of cecum; D12.3 Benign neoplasm of transverse colon; J44.9 Chronic obstructive pulmonary disease, unspecified; F17.210 Nicotine dependence, cigarettes, uncomplicated; G20 Parkinson's disease; F02.80 Dementia in other diseases classified elsewhere, unspecified severity, without behavioral disturbance, psychotic disturbance, mood disturbance, and anxiety; F32.9 Major depressive disorder, single episode, unspecified; Z79.899 Other long term (current) drug therapy; Z79.82 Long term (current) use of aspirin; Z90.49 Acquired absence of other specified parts of digestive tract; Z90.89 Acquired absence of other organs; Z98.890 Other specified postprocedural states; Z86.69 Personal history of other diseases of the nervous system and sense organs; Z98.52 Vasectomy status; Z90.2 Acquired absence of lung [part of]
CPT/HCPCS: 88305; 45385; J2704; 45382

== ENCOUNTER → 2020-02-04 | Outpatient (CLI) | payer OTHER ==
--- NOTE | 2020-02-04 23:04 | MR ---
EXAMINATION TYPE: MR shoulder LT wo con DATE OF EXAM: 02/04/2020 COMPARISON: PET CT 12/05/2019. HISTORY: Lt shoulder pain with limited movement x 6 weeks TECHNIQUE: Multiplanar, multisequence imaging of the left shoulder is performed without contrast. FINDINGS: Rotator Cuff: There is moderate grade bursal surface partial-thickness tear of the supraspinatus mid to posterior fibers on the background of moderate tendinosis. There is also low grade articular surfa ce partial thickness tear of the infraspinatus tendon anterior fibers. There is mild tendinosis of th e subscapularis tendon. No evidence of significant muscular atrophy or edema. Acromioclavicular Joint: Mild to moderate osteoarthritis. Glenohumeral Joint: Mild to moderate osteoarthritis. Labrum: Moderate degeneration of the glenoid labrum with irregularity, consistent with tear. Biceps Tendon: The long head of biceps is in normal location within bicipital groove. Bone marrow signal: No significant or suspicious bone marrow abnormality. Other: No additional significant abnormality is appreciated. IMPRESSION: Moderate grade bursal surface partial-thickness tear of the supraspinatus tendon mid to posterior fib ers. Low-grade partial-thickness tear of the infraspinatus tendon.
== END | disposition home or self-care (01) ==
LOC: RADMRIMAIN 21:31
PROVIDERS: ATTEND Internal Medicine Hematology & Oncology
DX: M75.112 Incomplete rotator cuff tear or rupture of left shoulder, not specified as traumatic (principal); C76.0 Malignant neoplasm of head, face and neck; C34.31 Malignant neoplasm of lower lobe, right bronchus or lung

== ENCOUNTER → 2020-04-24 | Outpatient (CLI) | payer OTHER ==
--- NOTE | 2020-04-25 07:07 | PE ---
EXAMINATION TYPE: PET CT fusion skull to thigh DATE OF EXAM: 04/24/2020 COMPARISON: Prior PET/CT December 05, 2019 and older studies. HISTORY: Lung and throat cancer progress study. Diagnosed June 2018 in the right lung and throat can cer summer 2019 with subsequent surgery. Completed recent radiation treatment to throat. Completed ch emotherapy February 2019.2 TECHNIQUE: Following the intravenous administration of 9.44 mCi of F-18 FDG, whole body images are p erformed from the skull base to the midthigh. Images are reviewed on the computer in the coronal, ax ial, and sagittal planes. Reconstructed rotating images are created on independent workstation and r eviewed on the computer. A localization and attenuation correction CT is performed in conjunction w ith the PET scan. Dedicated PET/CT imaging of the neck. Blood glucose level equals 108 SCAN: Subsequent Scan FINDINGS: SKULL BASE AND NECK: No new areas of suspicious hypermetabolic uptake. Left upper cervical anterior prevertebral muscular uptake presumed postinflammatory due to location and vertical orientation along the muscle. CHEST, MEDIASTINUM, AND HILAR REGION: Persistent right-sided volume loss with inferior surgical sutur es. Stable small right basilar pleural effusion or thickening. No new suspicious hypermetabolic uptak e. ABDOMEN AND PELVIS: Normal excretion is present. No new areas of suspicious hypermetabolic uptake. No new adrenal masses. OSSEOUS STRUCTURES: No new areas of abnormal hypermetabolic uptake. OTHER CT: Background mild to borderline moderate underlying emphysematous change. Moderate to severe three-vessel coronary artery calcification redemonstrated. Calcified left hilar lymph node. Prominent right and left pulmonary arteries, CT findings suggesting underlying pulmonary artery hypertension. Cholecystectomy clips. Several calcifications throughout the spleen presumed product of old granuloma tous disease. Nonobstructing 6 mm calculus right kidney axial image 154 redemonstrated. Mildly enlarg ed prostate gland consistent with BPH. Right-sided pelvic phleboliths. IMPRESSION: No suspicious hypermetabolic uptake to suggest active neoplastic recurrence.
== END | disposition home or self-care (01) ==
LOC: RADPETMAIN 07:03
PROVIDERS: ATTEND Internal Medicine Hematology & Oncology
DX: C34.31 Malignant neoplasm of lower lobe, right bronchus or lung (principal); C76.0 Malignant neoplasm of head, face and neck
CPT/HCPCS: 78815; A9552

== ENCOUNTER 2020-05-05 05:37 | Day surgery (SDC) | payer BC, OTHER ==
[2020-04-29 12:15] VITALS: BMI 36.5
--- NOTE | 2020-05-04 16:42 | HP ---
HISTORY AND PHYSICAL DATE OF SURGERY: 05/05/2020 Guillermo Campbell is a 49-year-old gentleman seen with progressive left shoulder pain. We discussed options. He elected to proceed with arthroscopy. Consent was obtained. Medical clearance was obtained. PAST MEDICAL HISTORY: Hypertension, anxiety. PAST SURGICAL HISTORY: Cholecystectomy, carpal tunnel release. DAILY MEDICATIONS: Hydrochlorothiazide, losartan, verapamil. ALLERGIES: NONE REPORTED. SOCIAL HISTORY: Smokes one half pack of cigarettes a day. PHYSICAL EVALUATION OF THE LEFT SHOULDER: Flexion 140, abduction 90. External rotation is 30 with pain and weakness. Tenderness along the anterolateral acromion and rotator cuff insertion. Impingement is positive at 90. Drop-arm sign positive. His distal neurovascular exam is intact. RADIOGRAPHS: Radiographs of the left shoulder revealed a type 2 acromion, acromioclavicular joint osteoarthritis and cystic changes of the tuberosity. Left shoulder MRI revealed partial rotator cuff tear, labral tear and osteoarthritic changes. IMPRESSION: 1. Left shoulder impingement with partial rotator cuff tear. 2. Left shoulder labral tear. 3. Left shoulder acromioclavicular joint osteoarthritis. 4. Hypertension. PLAN: Left shoulder arthroscopy with subacromial decompression, arthroscopic rotator cuff repair, possible labral repair, Julia procedure and debridement. MMODL / IJN: [id number] /
[~2020-05-05 05:37] MED LIST changes: +LIDOCAINE 1% (10MG/ML) FOR IV START INTRADERMA PRN; +MIDAZOLAM 2 MG/2 ML VIAL IV PRN
[2020-05-05] MEDS ORDERED: ONDANSETRON 4 MG/2 ML VIAL IVP PRN (06:00)
[2020-05-05] MEDS ORDERED: DEXAMETHASONE SOD PHOSPHATE 4 MG/ML 1 ML VIAL IV PRN (06:00)
[2020-05-05] MEDS ORDERED: fentaNYL (PF) 50 MCG/ML 2 ML AMP IVP PRN (07:00)
[2020-05-05] MEDS ORDERED: LIDOCAINE 1%-EPI 1:100,000 20 ML VIAL ONE (07:23)
[2020-05-05] MEDS ORDERED: HYDROmorphone (PF) 1 MG/ML ONE (07:23)
[2020-05-05] MEDS ORDERED: PROPOFOL 10 MG/ML 20 ML VIAL IV ONE (07:23)
[2020-05-05] MEDS ORDERED: LIDOCAINE 1% INJ 10MG/ML (20 ML MDV) ONE (07:23)
[2020-05-05] MEDS ORDERED: DEXAMETHASONE SOD PHOSPHATE 4 MG/ML 1 ML VIAL ONE (07:23)
[2020-05-05] MEDS ORDERED: fentaNYL (PF) 50 MCG/ML 2 ML AMP ONE (07:23)
[2020-05-05] MEDS ORDERED: SUCCINYLCHOLINE CHLORIDE 100 MG/5 ML SYR IV ONE (07:23)
[2020-05-05] MEDS ORDERED: ROPIVACAINE 5 MG/ML 30 ML VIAL ONE (07:23)
[2020-05-05] MEDS ORDERED: MIDAZOLAM 2 MG/2 ML VIAL IVP ONE (07:24)
--- NOTE | 2020-05-05 08:12 | P.ANPRN ---
Procedure Note - Anesthesia - Nerve Block Performed Left Interscalene Single Time Out Performed: Yes Date of Procedure: 05/05/20 Procedure Start Time: 06:56 Procedure Stop Time: 07:07 Location of Patient: PreOp Indication: Requested by Surgeon Specifically requested for management of pain by DrLy: Alex Angulo Sedation Type: Sedate with meaningful contact maintained Preparation: Sterile Prep Position: Supine Needle Types: Pajunk Needle Gauge: 21 Ultrasound used to visualize needle placement: Yes Ultrasound used to observe medication spread: Yes Injectate: 0.5% Ropivacaine (see comment for volume) (15 ml plus lidocaine 1 % with ep 1/100k plus Dexamethasone 4 mg) Adjunct: Epinephrine (see comment for dilution ratio) Blood Aspirated: No Pain Paresthesia on Injection Noted: No Resistance on Injection: Normal Image Stored and Saved: Yes Events: Uneventful and Well Tolerated
[2020-05-05] MEDS ORDERED: LACTATED RINGERS 1,000 ML IV ONE (08:21)
--- NOTE | 2020-05-05 09:11 | P.OP ---
Date of Procedure: 05/05/20 Preoperative Diagnosis: Left shoulder impingement Postoperative Diagnosis: 1. Left shoulder rotator cuff tear 2. Left shoulder impingement 3. Left shoulder acromioclavicular joint osteoarthritis 4. Left shoulder superficial anterior labral tear Procedure(s) Performed: 1. Left shoulder arthroscopic rotator cuff repair 2. Left shoulder arthroscopic subacromial decompression 3. Left shoulder arthroscopic Julia procedure 4. Left shoulder arthroscopic debridement labral tear Implants: 14.75 Arthrex swivel lock anchor Anesthesia: GETA, regional (Interscalene block) Surgeon: Alex Angulo Estimated Blood Loss (ml): 11 Pathology: none sent Condition: stable Disposition: PACU Indications for Procedure: 49-year-old gentleman seen with progressive left shoulder pain. After treatment options were discussed, he elected to proceed with arthroscopy. Operative Findings: see description of procedure Description of Procedure: Patient underwent an interscalene block by department of anesthesia. The patient was then taken to the operative suite. The patient underwent a general anesthetic by the department of anesthesia. The patient was placed into a lateral position and secured. There was appropriate padding of the bony prominence. Left shoulder was then prepped and draped in normal sterile orthopedic fashion. We placed the extremity in 10 pounds of longitudinal traction. A posterior incision was now made for a posterior working portal site. The trocar and cannula were inserted into the glenohumeral joint. Arthroscopy was initiated. Spinal needle was now inserted anteriorly, to ascertain the anterior working portal site. An incision was now made in that area, a trocar was inserted followed by a probe. There was some superficial tearing of the anterior labrum. There was some grade 1 chondromalacia changes of the anterior glenoid. The biceps tendon was intact. I debrided the superficial labral tear. I again probed the residual labrum and it was found to be stable. Instruments were now removed from the glenohumeral joint. Utilizing the posterior working portal site, the trocar and cannula were inserted into the subacromial space. Arthroscopy initiated. I made an incision 2 fingerbreadths lateral to the acromion. I introduced my trocar followed by my ArthroCare ablator. I now began ablating thick subacromial bursal tissue, which exposed the undersurface of the anterior acromion. There was diminished subacromial space. There was a very prominent anterior acromion. A motorized bur was introduced and a subacromial decompression was performed. I also excised some osteophytes off the inferior aspect of the distal clavicle. The AC joint was visualized and noted to be fairly arthritic. The motorized bur was introduced in the anterior portal site and a Julia procedure was performed without difficulty, decompressing the AC joint nicely. I turned my attention to the rotator cuff. There was some superficial tearing along the mid body/posterior aspect distal supraspinatus. Upon probing the area there was a full-thickness perforation present. I debrided the margins getting down to stable tendon tissue. The defect measured 11 0.5 cm. I introduced my motorized bur and abraded the footprint area, getting some petechial bleeding. I passed 3 everted mattress suture through good bites of rotator cuff tendon. I punched the hole in the footprint area for insertion of an anchor. I passed all 6 suture limbs through the eyelet of a 4.75 Arthrex swivel lock anchor. I placed the eyelet into the pre-punch hole. All the sutures were tensioned and the anchor was deployed with good fixation noted. All residual suture limbs were now clipped. We had good compression of the tendon along the entire footprint. I injected 1 mL Renyte intra-articular. Instruments now removed from the portal sites. All portal sites were approximated with nylon suture. Sterile dressings were applied followed by a shoulder sling. The patient was awakened, transferred to a bed, and taken to recovery in stable condition.
[2020-05-05 09:15] VITALS: TEMP 97
[2020-05-05] MEDS ORDERED: HYDROmorphone 0.5 MG/0.5 ML SYRINGE IVP ONE ×2 (09:15→09:20)
[2020-05-05] MEDS ORDERED: KETOROLAC 15 MG/ML 1 ML VIAL IVP ONE (09:18)
[2020-05-05 09:52] VITALS: RESP 18
[2020-05-05] MEDS ORDERED: HYDROcodone/APAP 7.5-325MG 1 EACH TAB ONE (09:59)
[2020-05-05] MEDS ORDERED: HYDROcodone/APAP 7.5-325MG 1 EACH TAB PO ONE (10:00)
[2020-05-05 10:29] VITALS: BP 146/83; PULSE 81
[2020-05-05] MEDS ORDERED: HYDROcodone/APAP 5-325MG 1 EACH TAB ONE (10:33)
[2020-05-05] MEDS ORDERED: HYDROcodone/APAP 5-325MG 1 EACH TAB PO ONE (10:34)
== END 2020-05-05 10:51 | disposition home or self-care (01) ==
LOC: OR 05:37
PROVIDERS: ATTEND Orthopaedic Surgery
DX: M75.102 Unspecified rotator cuff tear or rupture of left shoulder, not specified as traumatic (principal); M25.812 Other specified joint disorders, left shoulder; M19.012 Primary osteoarthritis, left shoulder; S43.432A Superior glenoid labrum lesion of left shoulder, initial encounter; X58.XXXA Exposure to other specified factors, initial encounter; Z79.899 Other long term (current) drug therapy; G20 Parkinson's disease; F17.200 Nicotine dependence, unspecified, uncomplicated; K58.9 Irritable bowel syndrome, unspecified; J44.9 Chronic obstructive pulmonary disease, unspecified; K21.9 Gastro-esophageal reflux disease without esophagitis; E78.5 Hyperlipidemia, unspecified; F43.10 Post-traumatic stress disorder, unspecified; F32.9 Major depressive disorder, single episode, unspecified; Z90.49 Acquired absence of other specified parts of digestive tract; Z98.890 Other specified postprocedural states
CPT/HCPCS: 64415; 76942; 84132; 29826; 29827; 29824; C1713; J2250; J1100; J0690; J2405; J2001; J3010; J1170 ×2; J2795; J1885; J0330; J2704

== ENCOUNTER → 2020-10-22 | Outpatient (CLI) | payer OTHER, MEDICARE, BC ==
--- NOTE | 2020-10-24 10:45 | PE ---
EXAMINATION TYPE: PET CT fusion skull to thigh DATE OF EXAM: 10/22/2020 COMPARISON: Prior PET/CT April 24, 2020 and older studies. HISTORY: Lung and throat cancer progress study. Diagnosed June 2018 in the right lung and throat can cer summer 2019 with subsequent surgery. Completed recent radiation treatment to throat. Completed im munotherapy October 19, 2020. TECHNIQUE: Following the intravenous administration of 12.97 mCi of F-18 FDG, whole body images are performed from the skull base to the midthigh. Images are reviewed on the computer in the coronal, a xial, and sagittal planes. Reconstructed rotating images are created on independent workstation and reviewed on the computer. A localization and attenuation correction CT is performed in conjunction with the PET scan. Blood glucose level equals 101. Dedicated PET/CT imaging of the neck is performed. SCAN: Subsequent Scan FINDINGS: SKULL BASE AND NECK: No new areas of suspicious hypermetabolic uptake. CHEST, MEDIASTINUM, AND HILAR REGION: Persistent right-sided volume loss with inferior surgical sutur es. Stable tiny right basilar pleural effusion or thickening. No new suspicious hypermetabolic uptake . ABDOMEN AND PELVIS: Normal excretion is present. Nonspecific bowel uptake sigmoid colon in the pelvis on current study. No new areas of suspicious hypermetabolic uptake. No new adrenal masses. OSSEOUS STRUCTURES: No new areas of abnormal hypermetabolic uptake. OTHER CT: Background mild to borderline moderate underlying emphysematous change is redemonstrated. P ersistent moderate three-vessel coronary artery calcification. Calcified left hilar lymph node axial image 96 redemonstrated. Prominent pulmonary arteries, CT finding suggesting underlying pulmonary art patsy hypertension redemonstrated. Cholecystectomy clips. Several calcifications throughout the spleen presumed product of old granuloma tous disease. Nonobstructing 6 mm calculus right kidney axial image 164 redemonstrated. Mildly enlarg ed prostate gland consistent with BPH. Right-sided pelvic phleboliths. Facet arthropathy lower lumbar spine. IMPRESSION: No suspicious hypermetabolic uptake to suggest active neoplastic recurrence.
== END | disposition home or self-care (01) ==
LOC: RADPETMAIN 15:36
PROVIDERS: ATTEND Internal Medicine Hematology & Oncology
DX: C34.90 Malignant neoplasm of unspecified part of unspecified bronchus or lung (principal); C14.0 Malignant neoplasm of pharynx, unspecified; J43.9 Emphysema, unspecified; N20.0 Calculus of kidney; N40.0 Benign prostatic hyperplasia without lower urinary tract symptoms
CPT/HCPCS: 78815; A9552

== ENCOUNTER → 2021-01-07 | Outpatient (CLI) | payer MEDICARE, BC ==
--- NOTE | 2021-01-07 13:53 | FL ---
EXAMINATION TYPE: FL barium swallow w video DATE OF EXAM: 01/07/2021 MODIFIED SWALLOW / DEGLUTITION STUDY CLINICAL HISTORY: Dysphagia. TECHNIQUE: Deglutition study is performed utilizing thin liquid barium, barium thick pudding, and ba rium coated cracker. COMPARISON: None. FINDINGS: The oral and pharyngeal phases show satisfactory initiation and propagation with all modali ties tested. Normal mastication is seen with solid modalities tested. There is inconsistent, transie nt penetration with thin barium. No mohsen aspiration. No penetration or aspiration with pudding thick and solid/cracker. IMPRESSION: There is inconsistent, transient penetration with thin barium.
== END | disposition home or self-care (01) ==
LOC: RADUSWWP 10:48
PROVIDERS: ATTEND Psychiatry & Neurology Neurology
DX: R13.10 Dysphagia, unspecified (principal)
CPT/HCPCS: 74230

== ENCOUNTER → 2021-01-07 | Outpatient (CLI) | payer MEDICARE, BC ==
--- NOTE | 2021-01-07 13:27 | XR ---
EXAMINATION TYPE: XR chest 2V DATE OF EXAM: 01/07/2021 COMPARISON: 11/04/2019 HISTORY: 50-year-old male with dry cough. Previous right lower lobectomy for cancer. Also history of throat cancer. J01.00, C34.31, C76.0, Z71.3, DRY COUGH TECHNIQUE: PA and lateral views FINDINGS: There is continued volume loss at the right hemithorax with continued small right pleural effusion. P revious right-sided thoracotomy change. Mild interstitial prominence and mild hyperinflation relating to COPD. No new consolidation. IMPRESSION: Stable volume loss in the right hemithorax along with small right pleural effusion. Previous right-si ded thoracotomy. Background COPD. No acute change identified.
== END | disposition home or self-care (01) ==
LOC: LABWHC1 10:55
PROVIDERS: ATTEND Internal Medicine Hematology & Oncology
DX: C76.0 Malignant neoplasm of head, face and neck (principal); J44.9 Chronic obstructive pulmonary disease, unspecified; J90 Pleural effusion, not elsewhere classified; Z90.2 Acquired absence of lung [part of]; J01.00 Acute maxillary sinusitis, unspecified; Z71.3 Dietary counseling and surveillance; Z85.118 Personal history of other malignant neoplasm of bronchus and lung; Z85.818 Personal history of malignant neoplasm of other sites of lip, oral cavity, and pharynx
CPT/HCPCS: 71046

== ENCOUNTER 2021-02-01 07:33 | Day surgery (SDC) | payer MEDICARE, BC ==
[2021-01-27 15:26] VITALS: BMI 39.5
[~2021-02-01 07:33] MED LIST changes: +ACETAMINOPHEN TAB 500 MG TAB PO PRN; +HEPARIN SODIUM,PORCINE/PF 5,000 UNIT/0.5 ML SYRINGE SQ PRN; -LACTATED RINGERS 1,000 ML IV SCH; -LIDOCAINE 1% (10MG/ML) FOR IV START INTRADERMA PRN; -MIDAZOLAM 2 MG/2 ML VIAL IV PRN; +Pre Op ABX Message 1 EACH MISC MISCELLANE ONE
[2021-02-01 08:12] VITALS: TEMP 98.7
[2021-02-01] MEDS ORDERED: LACTATED RINGERS 1,000 ML IV ONE (08:26)
[2021-02-01] MEDS ORDERED: LIDOCAINE 1% (10MG/ML) FOR IV START INTRADERMA ONE (08:26)
[2021-02-01] MEDS ORDERED: ONDANSETRON 4 MG/2 ML VIAL ONE (08:30)
[2021-02-01] MEDS ORDERED: KETAMINE 10 MG/ML 20 ML VIAL ONE (08:57)
[2021-02-01] MEDS ORDERED: LIDOCAINE 1% INJ 10MG/ML (20 ML MDV) ONE (08:57)
[2021-02-01] MEDS ORDERED: SODIUM CHLORIDE 0.9% 100 ML BAG ONE (08:57)
[2021-02-01] MEDS ORDERED: .fentaNYL (PF) 50 MCG/ML 2 ML AMP ONE (08:57)
[2021-02-01] MEDS ORDERED: PROPOFOL 10 MG/ML 20 ML VIAL IV ONE (08:57)
[2021-02-01] MEDS ORDERED: MIDAZOLAM 2 MG/2 ML VIAL ONE (08:57)
[2021-02-01] MEDS ORDERED: ceFAZolin 1,000 MG VIAL ONE (08:57)
[2021-02-01] MEDS ORDERED: BUPIVACAIN-EPI 0.25%-1:200,000 30 ML VIAL SQ ONE ×2 (09:43)
[2021-02-01] MEDS ORDERED: HEPARIN SODIUM,PORCINE 100 UNIT/ML 5 ML VIAL IV ONE (09:43)
[2021-02-01 10:02] VITALS: RESP 17
--- NOTE | 2021-02-01 10:04 | P.GSHP ---
History of Present Illness H&P Date: 02/01/21 Chief Complaint: Lung cancer This a 50-year-old male with a known history of lung cancer. Patient presents today for Port-A-Cath placement for immunotherapy. 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 R lung cancer with surgery and tonsil ca with surgery/chemo/current radiation/immunotherapy, r pleural effusion, R hemidiaphragm elevated. psoriasis History of Any Multi-Drug Resistant Organisms: None Reported Past Surgical History: Cholecystectomy, Ear Surgery, Heart Catheterization, Or thopedic Surgery, Tonsillectomy Additional Past Surgical History / Comment(s): 2006 cardiac cath, bilateral myringotomy/tubes, L carpal tunnel release, vasectomy. right wrist surgery for tendons. EGD, right middle and lower lobe lung removal, lt shoulder surgery Past Anesthesia/Blood Transfusion Reactions: Previous Problems w/ Anesthesia Additional Past Anesthesia/Blood Transfusion Reaction / Comment(s): "was told had to have more anesthesia than usual, also high tolerance to opiates" Smoking Status: Current every day smoker - Past Family History Father Family Medical History: Coronary Artery Disease (CAD), Myocardial Infarction (TX) Additional Family Medical History / Comment(s): Father at the age of 78yrs from his AICD/pacer failing. He had had a TX at the age of 72yrs. Mother Family Medical History: COPD, Respiratory Disorder Additional Family Medical History / Comment(s): Mother had severe COPD. She was a heavy smoker. She used home oxygen. She at the age of 88yrs. Medications and Allergies Home Medications Medication Instructions Recorded Confirmed Type Cetirizine HCl [Zyrtec] 10 mg PO DAILY 05/07/17 02/01/21 History Loperamide [Imodium] 4 mg PO QID PRN 05/07/17 02/01/21 History Tiotropium 18 Mcg/Puff [Spiriva] 1 cap INHALATION RT-DAILY 05/07/17 02/01/21 History Sodium Bicarbonate Tab 1,300 mg PO BID 08/23/17 02/01/21 History Gabapentin [Neurontin] 100 mg PO QAM 05/21/18 02/01/21 History Gabapentin [Neurontin] 300 mg PO HS 05/21/18 02/01/21 History Esomeprazole Magnesium [NexIUM] 40 mg PO DAILY 04/14/19 02/01/21 History Hydrochlorothiazide 12.5 mg PO DAILY 04/14/19 02/01/21 History [hydroCHLOROthiazide] Losartan [Cozaar] 50 mg PO DAILY 04/14/19 02/01/21 History Primidone [Mysoline] 50 mg PO DAILY 01/08/20 02/01/21 History rOPINIRole HCL [Requip] 1 mg PO Q12HR 01/08/20 02/01/21 History Butalb/Acetaminophen/Caffeine 1 - 2 each PO Q4H PRN 04/29/20 02/01/21 History [Fioricet 50-325-40] FLUoxetine HCL [FLUoxetine DR] 90 mg PO MO 04/29/20 02/01/21 History Ondansetron Odt [Zofran Odt] 8 mg PO Q6H PRN 04/29/20 02/01/21 History Pembrolizumab [Keytruda] 100 mg IV Q21D 04/29/20 02/01/21 History Verapamil Sr [Isoptin Sr] 40 mg PO HS 04/29/20 02/01/21 History buPROPion [Wellbutrin] 150 mg PO BID 04/29/20 02/01/21 History Aspirin [Craig Aspirin EC] 81 mg PO DAILY 01/27/21 02/01/21 History Atorvastatin [Lipitor] 80 mg PO DAILY 01/27/21 02/01/21 History Tamsulosin [Flomax] 0.4 mg PO DAILY 01/27/21 02/01/21 History Allergies Allergy/AdvReac Type Severity Reaction Status Date / Time No Known Allergies Allergy Verified 02/01/21 08:00 Surgical - Exam Vital Signs Temp Pulse Resp BP Pulse Ox 98.7 F 83 18 128/72 97 02/01/21 08:08 02/01/21 08:08 02/01/21 08:08 02/01/21 08:08 02/01/21 08:08 - General well developed, well nourished, no distress - Eyes PERRL - ENT normal pinna - Neck no masses - Respiratory normal expansion - Cardiovascular Rhythm: regular - Abdomen Abdomen: soft, non tender Assessment and Plan Assessment: History of lung cancer. We'll perform Port-A-Cath placement.
--- NOTE | 2021-02-01 10:12 | P.OP ---
Date of Procedure: 02/01/21 Preoperative Diagnosis: History of lung cancer Postoperative Diagnosis: History of lung cancer Procedure(s) Performed: Insertion of right subclavian Port-A-Cath Anesthesia: MAC Surgeon: Medardo Stroud Pathology: none sent Condition: stable Disposition: PACU Description of Procedure: PROCEDURE: The patient was placed on the operating table in the supine position. She received MAC anesthetic. The [right] chest was prepped and draped in the usual sterile fashion. The skin underneath the right clavicle was anesthetized with 1% Xylocaine and using Seldinger technique, the right subclavian vein was cannulized. The wire was placed through the needle and positioned under fluoroscopy. Next, the needle was removed and the port site was anesthetized with 1% Xylocaine. Skin was incised with #15 blade and port pocket was made using blunt and sharp dissection. Following this the catheter was attached to the sport and the port was flushed. The port was positioned into the pocket site and was secured with 3-0 Vicryl suture. The catheter was then brought out through the wire site and then the dilator sheath was placed over the wire and the dilator and the wire were removed. The catheter was placed through the sheath and the sheath was removed. The port was flushed with hep-lock solution. Skin was closed with interrupted 3-0 Vicryl sutures. Steri-Strips were applied. The patient tolerated the procedure well. The patient was sent to recovery room for chest x-ray after the procedure.
[2021-02-01 10:28] VITALS: BP 118/60; PULSE 82
--- NOTE | 2021-02-01 10:54 | XR ---
EXAMINATION TYPE: XR chest 1V portable DATE OF EXAM: 02/01/2021 COMPARISON: 01/07/2021 INDICATION: Port-A-Cath placement TECHNIQUE: Single frontal view of the chest is obtained. FINDINGS: The heart size is normal. The pulmonary vasculature is normal. There is a small to moderate right pleural fluid collection. Port is placed on the right with the tip in the superior vena cava region. No pneumothorax is evident. IMPRESSION: 1. No pneumothorax post catheter placement, tip is in the superior vena cava region. 2. Small to moderate right pleural fluid
--- NOTE | 2021-02-01 11:37 | FL ---
Fluoroscopy INDICATION: Pain FINDINGS: Fluoroscopy time: 16 seconds. Images obtained: 2. IMPRESSIONS: 1. Documentation of fluoroscopy.
== END 2021-02-01 11:21 | disposition home or self-care (01) ==
LOC: OR 07:33
PROVIDERS: ATTEND Surgery
DX: Z85.118 Personal history of other malignant neoplasm of bronchus and lung (principal)
CPT/HCPCS: 36556; 77001; 71045; C1788; J2250; J1642; J2405; J0690; J2001; J3010; J2704; J1644

== ENCOUNTER → 2021-05-23 | Outpatient (CLI) | payer OTHER ==
[2021-05-24 14:06] LABS: Coronavirus SARS CoV-2 Not Detected (Not Detected)
== END | disposition home or self-care (01) ==
LOC: LABWHC1 12:40
PROVIDERS: ATTEND Psychiatry & Neurology Neurology
DX: Z01.812 Encounter for preprocedural laboratory examination (principal); Z20.822 Contact with and (suspected) exposure to COVID-19
CPT/HCPCS: U0003; C9803

== ENCOUNTER → 2021-06-03 | Outpatient (CLI) | payer OTHER ==
--- NOTE | 2021-06-05 08:07 | PE ---
EXAMINATION TYPE: PET CT fusion skull to thigh DATE OF EXAM: 06/03/2021 COMPARISON: Prior PET/CT October 22, 2020 and older studies HISTORY: Lung and throat cancer progress study. Diagnosed June 2018 in the right lung and throat ca ncer summer 2019 with subsequent surgery. Completed radiation treatment to throat 2019. Completed im munotherapy October 19, 2020. TECHNIQUE: Following the intravenous administration of 9.42 mCi of F-18 FDG, whole body images are p erformed from the skull base to the midthigh. Images are reviewed on the computer in the coronal, ax ial, and sagittal planes. Reconstructed rotating images are created on independent workstation and r eviewed on the computer. A localization and attenuation correction CT is performed in conjunction w ith the PET scan. Blood glucose level equals 83. SCAN: Subsequent Scan FINDINGS: SKULL BASE AND NECK: No new areas of suspicious hypermetabolic uptake. CHEST, MEDIASTINUM, AND HILAR REGION: Persistent right-sided volume loss with inferior surgical sutur es. Stable tiny right basilar pleural effusion or thickening. No new suspicious hypermetabolic uptake . ABDOMEN AND PELVIS: Normal excretion is present. No new areas of suspicious hypermetabolic uptake. N o new adrenal masses. OSSEOUS STRUCTURES: No new areas of abnormal hypermetabolic uptake. OTHER CT: Right subclavian Mediport catheter terminates in SVC. Background mild to moderate underlyin g emphysematous change is redemonstrated. Persistent moderate three-vessel coronary artery calcificat ion. Calcified left hilar lymph node anteriorly axial image 97 redemonstrated. Prominent right pulmon chris artery, CT finding suggesting underlying pulmonary artery hypertension. Cholecystectomy clips. Several calcifications throughout the spleen presumed product of old granuloma tous disease. Liver diffusely low dense consistent with diffuse fatty infiltration. Nonobstructing 6 mm calculus right kidney axial image 164 redemonstrated. Mildly enlarged prostate gland consistent wi th BPH. Bladder poorly distended with moderate concentric wall thickening suspected outlet obstructio n. Right-sided pelvic phlebolith. Facet arthropathy lower lumbar spine. IMPRESSION: No suspicious hypermetabolic uptake to suggest active neoplastic recurrence.
== END | disposition home or self-care (01) ==
LOC: RADPETMAIN 12:17
PROVIDERS: ATTEND Internal Medicine Hematology & Oncology
DX: C34.31 Malignant neoplasm of lower lobe, right bronchus or lung (principal); R91.8 Other nonspecific abnormal finding of lung field
CPT/HCPCS: 78815; A9552

== ENCOUNTER 2021-09-27 06:25 | Day surgery (SDC) | payer OTHER ==
[~2021-09-27 06:25] MED LIST changes: -ACETAMINOPHEN TAB 500 MG TAB PO PRN; -HEPARIN SODIUM,PORCINE/PF 5,000 UNIT/0.5 ML SYRINGE SQ PRN; +LACTATED RINGERS 1,000 ML IV SCH; +LIDOCAINE 1% (10MG/ML) FOR IV START INTRADERMA PRN; -Pre Op ABX Message 1 EACH MISC MISCELLANE ONE
[2021-09-27 07:05] VITALS: TEMP 97.8
[2021-09-27] MEDS ORDERED: LACTATED RINGERS 1,000 ML IV ONE (07:05)
[2021-09-27] MEDS ORDERED: PROPOFOL 10 MG/ML 20 ML VIAL IV ONE (07:38)
[2021-09-27] MEDS ORDERED: LIDOCAINE 2% INJ 20 MG/ML (2 ML VIAL) ONE (07:38)
--- NOTE | 2021-09-27 08:10 | P.PCN ---
Date of Procedure: 09/27/21 Procedure(s) Performed: Brief history: Patient is a pleasant scheduled for an elective upper endoscopy as well as colonoscopy as a part of evaluation of chronic persistent nausea of several years duration. He also has prior history of colon polyps and his last colonoscopy December 2019 revealed a large tubovillous adenomata cecum and the hepatic flexure. Procedure performed: Esophagogastroduodenoscopy with biopsy Colonoscopy with snare polypectomy and argon plasma coagulation Preoperative diagnosis: Chronic persistent nausea of several years duration Follow-up colon polyps Anesthesia: MAC Procedure: After informed consent was obtained from the patient was brought into the endoscopy unit and IV sedation was administered by anesthesia under continuous monitoring. Initially upper endoscopy was done. The Olympus GF 160 video endoscope was inserted inserted into the mouth and esophagus intubated without any difficulty and was gradually advanced into the stomach and duodenum and carefully examined. The bulb and second part of the duodenum appeared normal. The scope was then withdrawn into the stomach adequately insufflated with air and upon careful examination the antrum had mild gastritis and biopsies were done from this area. THe body, cardia and fundus appeared normal. The scope was then withdrawn into the esophagus. The GE junction was located at 40 cm to the incisors. It appeared irregular with no erythema erosions or ulcerations. There was a short tongue of Valverde's appearing mucosa extending 2-3 mm proximal to the GE junction that was biopsied. Rest of the esophagus appeared normal. Patient tolerated the procedure well. At this time the patient continued to remain sedation. Initial digital rectal examination was normal. Olympus CF 160 video colonoscope was then inserted into the rectum and gradually advanced to the cecum without any difficulty. Careful examination was performed as the scope was gradually being withdrawn. The prep was excellent. The cecum, had a 3 cm and 1 cm broad-based polyps that were removed by snare polypectomy followed by argon plasma coagulation and complete polypectomy was accomplished. Mucosa of the ascending colon, transverse colon, descending colon, sigmoid colon and rectum appeared normal. In the rectum there was a 3 mm polyp removed by snare polypectomy. Retroflexion was performed in the rectum and no lesions were noted. Patient tolerated the procedure well. Impression: 1. Upper endoscopy revealed small hiatal hernia and mild antral gastritis and short segment Valverde's esophagus 2. Colonoscopy revealed: a) 3 cm broad-based polyp in the base of the cecum status post piecemeal snare polypectomy followed by argon plasma coag ablation and complete polypectomy accomplished b) 1 cm cecal polyp status post polypectomy c) 3 mm rectal polyp status post polypectomy Recommendations: Findings of this examination were discussed with the patient as well asHis family. He was advised to follow with the biopsy results. Based the biopsy results recommended repeat colonoscopy in one year.
[2021-09-27 08:28] VITALS: BP 130/78; PULSE 74; RESP 16
== END 2021-09-27 08:50 | disposition home or self-care (01) ==
LOC: ORWHC2ENDO 06:25
PROVIDERS: ATTEND Internal Medicine Gastroenterology
DX: D12.0 Benign neoplasm of cecum (principal); D12.8 Benign neoplasm of rectum; Z86.010 Personal history of colon polyps; K29.50 Unspecified chronic gastritis without bleeding; K21.00 Gastro-esophageal reflux disease with esophagitis, without bleeding; K44.9 Diaphragmatic hernia without obstruction or gangrene; I10 Essential (primary) hypertension; E78.5 Hyperlipidemia, unspecified; F17.210 Nicotine dependence, cigarettes, uncomplicated; Z85.118 Personal history of other malignant neoplasm of bronchus and lung; Z85.818 Personal history of malignant neoplasm of other sites of lip, oral cavity, and pharynx; M19.90 Unspecified osteoarthritis, unspecified site; K58.9 Irritable bowel syndrome, unspecified; Z90.49 Acquired absence of other specified parts of digestive tract; Z98.890 Other specified postprocedural states; Z90.2 Acquired absence of lung [part of]; Z95.828 Presence of other vascular implants and grafts; Z97.2 Presence of dental prosthetic device (complete) (partial); Z79.82 Long term (current) use of aspirin; Z79.891 Long term (current) use of opiate analgesic; Z79.899 Other long term (current) drug therapy
CPT/HCPCS: 88305; 45385; 43239; J1642; J2704; J2001; 45388

== ENCOUNTER 2021-10-04 15:50 | Emergency (ER) | payer OTHER ==
[2021-10-04] MEDS ORDERED: ONDANSETRON 4 MG/2 ML VIAL IVP STA (17:59)
[2021-10-04 18:54] LABS: Basophils # (A) 0.1 k/uL (0-0.2); Basophils % (A) 1 %; Eosinophils # (A) 0.2 k/uL (0-0.7); Eosinophils % (A) 2 %; HCT 39.5 % (39.0-53.0); HGB 12.8 gm/dL (13.0-17.5); Lymphocytes # (A) 1.6 k/uL (1.0-4.8); Lymphocytes % (A) 16 %; MCH 29.9 pg (25.0-35.0); MCHC 32.5 g/dL (31.0-37.0); MCV 91.9 fL (80.0-100.0); Mean Platelet Volume 7.2; Monocytes # (A) 0.6 k/uL (0-1.0); Monocytes % (A) 6 %; Neutrophils # (A) 7.3 k/uL (1.3-7.7); Neutrophils % (A) 74 %; Platelet Count 262 k/uL (150-450); RBC 4.29 m/uL (4.30-5.90); RDW 13.3 % (11.5-15.5); WBC 9.8 k/uL (3.8-10.6)
[2021-10-04 19:02] LABS: Prothrombin Time 10.8 sec (9.0-12.0)
[2021-10-04 19:15] LABS: ALT 23 U/L (4-49); AST 26 U/L (17-59); African American GFR (CKD) >90 (>60 ml/min/1.73 sqM); Albumin 3.9 g/dL (3.5-5.0); Alkaline Phosphatase 133 U/L (38-126); Anion Gap 10 mmol/L; Blood Urea Nitrogen 9 mg/dL (9-20); Calcium 8.4 mg/dL (8.4-10.2); Carbon Dioxide 24 mmol/L (22-30); Chloride 102 mmol/L (98-107); Glucose 110 mg/dL (74-99); Non-African American GFR(CKD) >90 (>60 ml/min/1.73 sqM); Potassium 3.7 mmol/L (3.5-5.1); Sodium 136 mmol/L (137-145); Total Bilirubin 0.5 mg/dL (0.2-1.3); Total Protein 6.6 g/dL (6.3-8.2)
--- NOTE | 2021-10-04 20:46 | CT ---
EXAMINATION TYPE: CT abdomen pelvis w con CT DLP: 2066.7 mGycm, Automated exposure control for dose reduction was used. DATE OF EXAM: 10/04/2021 7:19 PM COMPARISON: PET/CT 06/03/2021 CT abdomen pelvis 06/14/2017 CLINICAL INDICATION:Male, 50 years old with history of abdominal pain, acute, nonlocalized; Abdominal pain, rectal bleeding. hx lung/tonsil ca. TECHNIQUE: Axial CT of the abdomen and pelvis. Sagittal and coronal reformats were created on a [employer] [place] workstation. Contrast used:100 mL of Isovue 300 with IV Contrast, Oral contrast used: without Oral Contrast FINDINGS: LOWER CHEST: There is no elevated right diaphragm. ABDOMEN LIVER: Diffusely hypoattenuating parenchyma. GALLBLADDER AND BILE DUCTS: The gallbladder is surgically absent. PANCREAS: Unremarkable. SPLEEN: Scattered calcified granulomas. ADRENAL GLANDS: Unremarkable. KIDNEYS AND URETERS: No evidence of hydronephrosis. Nonobstructing right renal calculi measuring up t o 7 mm. And on the left measuring 4 mm. The ureters are unremarkable. PELVIS BLADDER: Dilated without acute abnormality. REPRODUCTIVE: Unremarkable. ABDOMEN & PELVIS STOMACH AND BOWEL: Material linear high density material is present within the cecum which shifts on delayed imaging. Additionally there is increased soft tissue density and/or blood product in the rect um measuring up to 9.8 x 4.4 cm which is new from prior imaging may represent blood products. No No evidence of bowel obstruction. Appendix is normal PERITONEUM: No evidence of pneumoperitoneum or free fluid. VASCULATURE: Mild atherosclerotic calcifications are present throughout the abdominal aorta and its b ranches. No evidence of aortic aneurysm. MUSCULOSKELETAL: No acute osseous abnormalities. Mild disc degeneration changes are present throughou t the thoracolumbar spine. LYMPH NODES: No gross evidence for lymphadenopathy. SOFT TISSUE/ABDOMINAL WALL: Unremarkable IMPRESSION: 1. Irregular linear hyperdensity seen within the cecum which appears to shift on delayed imaging, th is in combination with soft tissue density that may represent blood products in the rectum are suspic ious for patient's provided history of rectal bleeding. Correlate with patient's history of rectal bl eeding. Evaluation is slightly limited due to the technique of the CT examination. A nuclear medicine tagged red blood cell bleeding scan may be of benefit and/or colonoscopy is recommended. 2. Bilateral nonobstructing renal calculi.
--- NOTE | 2021-10-04 21:18 | ED ---
GI Bleed HPI - General Chief complaint: GI Bleed Stated complaint: Rectal bleeding Time Seen by Provider: 10/04/21 17:44 Source: patient Mode of arrival: ambulatory Limitations: no limitations - History of Present Illness Initial comments: This 50-year-old male presents with a complaint of some rectal bleeding. He states that it occurred one time earlier today. He states that there is a fair amount of bright red blood in the toilet mixed with his stool. He denies any current abdominal pain. He just had a colonoscopy several days ago. He apparen tly had a polyp removed at that time. He denies any fevers, chills, nausea, vomiting, constipation, or diarrhea. He states that he saw his cancer doctor at [facility] today to get is immunotherapy and they told him to come to the ER for further evaluation. The procedure was done by Dr. Kulkarni from gastroenterology. The patient currently takes an aspirin a day. He is unsure exactly why he is on aspirin. He denies any other blood thinners. He denies any previous similar incidents. No other complaints or modifying factors. There is no lightheadedness or weakness with standing or walking. He states that his cancer currently is in remission and he had some lung cancer and t onsillar cancer. - Related Data Home Medications Medication Instructions Recorded Confirmed Loperamide [Imodium] 4 mg PO QID PRN 05/07/17 09/23/21 Tiotropium 18 Mcg/Puff [Spiriva] 1 cap INHALATION RT-DAILY 05/07/17 09/23/21 Sodium Bicarbonate Tab 1,300 mg PO BID 08/23/17 09/23/21 Gabapentin [Neurontin] 100 mg PO QAM 05/21/18 09/23/21 Gabapentin [Neurontin] 300 mg PO HS 05/21/18 09/23/21 Esomeprazole Magnesium [NexIUM] 40 mg PO DAILY 04/14/19 09/23/21 Losartan [Cozaar] 50 mg PO DAILY 04/14/19 09/23/21 hydroCHLOROthiazide 12.5 mg PO DAILY 04/14/19 09/23/21 Primidone [Mysoline] 50 mg PO HS 01/08/20 09/23/21 rOPINIRole HCL [Requip] 2 mg PO Q12HR 01/08/20 09/23/21 Butalb/Acetaminophen/Caffeine 1 - 2 each PO Q4H PRN 04/29/20 09/23/21 [Fioricet 50-325-40] FLUoxetine HCL [FLUoxetine DR] 90 mg PO MO 04/29/20 09/23/21 Ondansetron Odt [Zofran Odt] 8 mg PO Q6H PRN 04/29/20 09/23/21 Pembrolizumab [Keytruda] 100 mg IV Q21D 04/29/20 09/23/21 Verapamil Sr [Isoptin Sr] 120 mg PO HS 04/29/20 09/23/21 buPROPion [Wellbutrin] 150 mg PO BID 04/29/20 09/23/21 Aspirin [[place] Aspirin EC] 81 mg PO DAILY 01/27/21 09/23/21 Atorvastatin [Lipitor] 80 mg PO DAILY 01/27/21 09/23/21 Tamsulosin [Flomax] 0.4 mg PO DAILY 01/27/21 09/23/21 Albuterol Inhaler [Ventolin Hfa 1 - 2 puff INHALATION RT-Q6H PRN 09/23/21 09/23/21 Inhaler] Apremilast [Otezla] 30 mg PO BID 09/23/21 09/23/21 Fluticasone Nasal [place] [Flonase 2 spray EA NOSTRIL DAILY PRN 09/23/21 09/23/21 Nasal [place]] Levocetirizine Dihydrochloride 5 mg PO HS 09/23/21 09/23/21 [Xyzal] Lidocaine 5% Oint [Xylocaine 5% 1 applic TOPICAL DIRECTED PRN 09/23/21 09/23/21 Oint] Lidocaine 5% Patch [Lidoderm] 1 each TP DIRECTED PRN 09/23/21 09/23/21 Allergies Allergy/AdvReac Type Severity Reaction Status Date / Time No Known Allergies Allergy Verified 10/04/21 16:30 Review of Systems ROS Statement: Those systems with pertinent positive or pertinent negative responses have been documented in the HPI. ROS Other: All systems not noted in ROS Statement are negative. Past Medical History Past Medical History: Asthma, Cancer, COPD, GERD/Reflux, Hyperlipidemia, Hypertension, Memory Impairment, Musculoskeletal Disorder, Neurologic Disorder, Osteoarthritis (OA), Rheumatoid Arthritis (RA), Skin Disorder, Sleep Apnea/CPAP/BIPAP Additional Past Medical History / Comment(s): past hx. 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 R lung cancer with surgery and tonsil ca with surgery/chemo/current radiation/immunotherapy, R hemidiaphragm elevated related to lung surg., psoriasis, frequent nausea-not sure why History of Any Multi-Drug Resistant Organisms: None Reported Past Surgical History: Cholecystectomy, Ear Surgery, Heart Catheterization, Orthopedic Surgery, Tonsillectomy Additional Past Surgical History / Comment(s): 2005 cardiac cath, bilateral myringotomy/tubes, L carpal tunnel release, vasectomy. right wrist surgery for tendons. EGD, right middle and lower lobe lung removal, lt shoulder surgery, mediport insertion Past Anesthesia/Blood Transfusion Reactions: Previous Problems w/ Anesthesia Additional Past Anesthesia/Blood Transfusion Reaction / Comment(s): "was told had to have more anesthesia than usual, also high tolerance to opiates" Past Psychological History: Anxiety, Depression, PTSD Smoking Status: Current every day smoker Past Alcohol Use History: Occasional - Past Family History Father Family Medical History: Coronary Artery Disease (CAD), Myocardial Infarction (ND) Additional Family Medical History / Comment(s): Father at the age of 78yrs from his AICD/pacer failing. He had had a ND at the age of 72yrs. Mother Family Medical History: COPD, Respiratory Disorder Additional Family Medical History / Comment(s): Mother had severe COPD. She was a heavy smoker. She used home oxygen. She at the age of 88yrs. General Exam - General Exam Comments Initial Comments: GENERAL: The patient is well nourished and well hydrated. VITAL SIGNS: Heart rate, blood pressure, respiratory rate reviewed as recorded in nurse's notes. EYES: Pupils are round and reactive. Extraocular movements are intact. No conjunctival / lid redness or swelling. ENT: No external evidence of injury, swelling, or ecchymosis. Airway is patent. Throat is clear. NECK: Nontender. No swelling or evidence of injury. No subcutaneous emphysema. Trachea is midline. No thyroid mass. HEART: Regular rate and rhythm. Good peripheral pulses. LUNGS/CHEST: Breath sounds clear and equal bilaterally. No rales, rhonchi, or wheezes. No ecchymosis, subcutaneous emphysema, or tenderness. ABDOMEN: Abdomen soft without tenderness. No palpable masses or organomegaly. No peritoneal signs. No abdominal wall swelling or ecchymosis. EXTREMITIES: No extremity tenderness. Normal muscle tone and function. No thoracolumbar tenderness. NEUROLOGIC: Sensation is grossly intact. Cranial nerve exam reveals face is symmetrical, tongue is midline, speech is clear. SKIN: No abrasions or ecchymosis is noted. No induration or masses noted. PSYCHIATRIC: Alert and oriented. Appropriate behavior and judgment. Limitations: no limitations Course Vital Signs 10/04/21 10/04/21 16:30 19:20 Temperature 98 F Pulse Rate 87 84 Respiratory 16 18 Rate Blood Pressure 142/78 145/84 O2 Sat by Pulse 99 98 Oximetry Medical Decision Making - Medical Decision Making The patient was seen and examined. An IV is established through his port. He had a laboratory analysis completed which shows a hemoglobin at 12.8. In [facility], his hemoglobin last year was 13.5. The remainder of labs are essentially within normal limits. A computed tomography scan of his abdomen and pelvis was done. This does not show any evidence of free air. There is some blood noted in the cecum. Please see report for specific details. He is quite stable on recheck. The exact cause of the bleeding is not definitively determined. It potentially could be from the polypectomy site. A long discussion was held with him as well as his who is a nurse in regard to transfer versus discharge home. We currently do not have GI coverage at our hospital and would have to transfer him to another hospital. The patient elects to be discharged home. A long discussion was held in regards to return parameters. His relates that she is a nurse as well and will bring him back or to another hospital if his symptoms do reoccur or worsen. Close follow- up with GI recommended. He also is instructed to stop taking his aspirin. - Lab Data Result diagrams: 10/04/21 18:42 10/04/21 18:42 Lab Results 10/04/21 10/04/21 10/04/21 Range/Units 18:35 18:42 18:42 WBC 9.8 (3.8-10.6) k/uL RBC 4.29 L (4.30-5.90) m/uL Hgb 12.8 L (13.0-17.5) gm/dL Hct 39.5 (39.0-53.0) % MCV 91.9 (80.0-100.0) fL MCH 29.9 (25.0-35.0) pg MCHC 32.5 (31.0-37.0) g/dL RDW 13.3 (11.5-15.5) % Plt Count 262 (150-450) k/uL MPV 7.2 Neutrophils % 74 % Lymphocytes % 16 % Monocytes % 6 % Eosinophils % 2 % Basophils % 1 % Neutrophils # 7.3 (1.3-7.7) k/uL Lymphocytes # 1.6 (1.0-4.8) k/uL Monocytes # 0.6 (0-1.0) k/uL Eosinophils # 0.2 (0-0.7) k/uL Basophils # 0.1 (0-0.2) k/uL PT 10.8 (9.0-12.0) sec INR 1.0 (<1.2) APTT 40.0 H (22.0-30.0) sec Sodium (137-145) mmol/L Potassium (3.5-5.1) mmol/L Chloride (98-107) mmol/L Carbon Dioxide (22-30) mmol/L Anion Gap mmol/L BUN (9-20) mg/dL Creatinine (0.66-1.25) mg/dL Est GFR (CKD-EPI)AfAm (>60 ml/min/1.73 sqM) Est GFR (CKD-EPI)NonAf (>60 ml/min/1.73 sqM) Glucose (74-99) mg/dL Calcium (8.4-10.2) mg/dL Total Bilirubin (0.2-1.3) mg/dL AST (17-59) U/L ALT (4-49) U/L Alkaline Phosphatase (38-126) U/L Total Protein (6.3-8.2) g/dL Albumin (3.5-5.0) g/dL Blood Type Blood Type Confirm A Positive Blood Type Recheck Bld Type Recheck Status Antibody Screen Spec Expiration Date 10/04/21 10/04/21 Range/Units 18:42 18:42 WBC (3.8-10.6) k/uL RBC (4.30-5.90) m/uL Hgb (13.0-17.5) gm/dL Hct (39.0-53.0) % MCV (80.0-100.0) fL MCH (25.0-35.0) pg MCHC (31.0-37.0) g/dL RDW (11.5-15.5) % Plt Count (150-450) k/uL MPV Neutrophils % % Lymphocytes % % Monocytes % % Eosinophils % % Basophils % % Neutrophils # (1.3-7.7) k/uL Lymphocytes # (1.0-4.8) k/uL Monocytes # (0-1.0) k/uL Eosinophils # (0-0.7) k/uL Basophils # (0-0.2) k/uL PT (9.0-12.0) sec INR (<1.2) APTT (22.0-30.0) sec Sodium 136 L (137-145) mmol/L Potassium 3.7 (3.5-5.1) mmol/L Chloride 102 (98-107) mmol/L Carbon Dioxide 24 (22-30) mmol/L Anion Gap 10 mmol/L BUN 9 (9-20) mg/dL Creatinine 0.53 L (0.66-1.25) mg/dL Est GFR (CKD-EPI)AfAm >90 (>60 ml/min/1.73 sqM) Est GFR (CKD-EPI)NonAf >90 (>60 ml/min/1.73 sqM) Glucose 110 H (74-99) mg/dL Calcium 8.4 (8.4-10.2) mg/dL Total Bilirubin 0.5 (0.2-1.3) mg/dL AST 26 (17-59) U/L ALT 23 (4-49) U/L Alkaline Phosphatase 133 H (38-126) U/L Total Protein 6.6 (6.3-8.2) g/dL Albumin 3.9 (3.5-5.0) g/dL Blood Type A Positive Blood Type Confirm Blood Type Recheck No Previous Record Bld Type Recheck Status CABO Indicated Antibody Screen NEGATIVE Spec Expiration Date 10/07/2021 - 2342 Disposition Clinical Impression: GI bleed, History of rectal polypectomy Disposition: HOME SELF-CARE Condition: Good Instructions (If sedation given, give patient instructions): Gastrointestinal Bleeding (ED) Additional Instructions: Please stop taking your aspirin. Is patient prescribed a controlled substance at d/c from ED?: No Referrals: [facility],Clinic [Primary Care Provider] - 1-2 days Estefany Chirinos MD [STAFF PHYSICIAN] - 1-2 days Time of Disposition: 21:17
[2021-10-04 22:16] VITALS: BP 130/78; PULSE 86; RESP 16; TEMP 98.2
== END 2021-10-04 22:15 | disposition home or self-care (01) ==
LOC: EC 15:50
DX: K92.2 Gastrointestinal hemorrhage, unspecified (principal); F17.200 Nicotine dependence, unspecified, uncomplicated; J44.9 Chronic obstructive pulmonary disease, unspecified; K21.9 Gastro-esophageal reflux disease without esophagitis; E78.5 Hyperlipidemia, unspecified; M19.90 Unspecified osteoarthritis, unspecified site; Z79.899 Other long term (current) drug therapy; Z79.51 Long term (current) use of inhaled steroids; Z86.010 Personal history of colon polyps; Z79.82 Long term (current) use of aspirin
CPT/HCPCS: 99285; 96374; 96375; 36415; 86900; 86901; 80053; 85025; 85610; 85730; 86850; 74177; J2405; J1642; Q9967

== ENCOUNTER → 2021-12-09 | Outpatient (CLI) | payer OTHER ==
--- NOTE | 2021-12-12 09:58 | PE ---
EXAMINATION TYPE: PET CT fusion skull to thigh DATE OF EXAM: 12/09/2021 COMPARISON: Most recent PET CT June 03, 2021 and older studies HISTORY: Lung and throat cancer progress study. Diagnosed June 2018 in the right lung and throat can cer summer 2019 with subsequent surgery. Completed radiation treatment to throat 2019. Completed imm unotherapy December 06 2020. TECHNIQUE: Following the intravenous administration of 12.6 mCi of F-18 FDG, whole body images are p erformed from the skull base to the midthigh. Images are reviewed on the computer in the coronal, ax ial, and sagittal planes. Reconstructed rotating images are created on independent workstation and r eviewed on the computer. A localization and attenuation correction CT is performed in conjunction w ith the PET scan. Blood glucose level equals 103. SCAN: Subsequent Scan FINDINGS: SKULL BASE AND NECK: No new areas of suspicious hypermetabolic uptake. CHEST, MEDIASTINUM, AND HILAR REGION: Persistent right-sided volume loss with inferior surgical sutur es. Stable tiny right basilar pleural effusion or thickening. No new suspicious hypermetabolic uptake . ABDOMEN AND PELVIS: Normal excretion is present. No new areas of suspicious hypermetabolic uptake. N o new adrenal masses. OSSEOUS STRUCTURES: No new areas of abnormal hypermetabolic uptake. OTHER CT: Right subclavian Mediport catheter redemonstrated. Background mild to moderate underlying e mphysematous change is redemonstrated. Persistent moderate three-vessel coronary artery calcification . Calcified subcentimeter left hilar lymph node anteriorly axial image 86 redemonstrated. Cholecystectomy clips. Several calcifications throughout the spleen presumed product of old granuloma tous disease. Liver diffusely low dense consistent with diffuse fatty infiltration. Nonobstructing 6 mm calculus right kidney axial image 155 is redemonstrated. Prostate gland upper limits of normal in size. Bladder poorly distended with moderate concentric wall thickening suspected outlet obstruction redemonstrated. Right-sided pelvic phleboliths. Facet arthropathy lower lumbar spine. IMPRESSION: No suspicious hypermetabolic uptake to suggest active neoplastic recurrence. No significa nt change from most recent PET/CT.
== END | disposition home or self-care (01) ==
LOC: RADPETMAIN 11:48
PROVIDERS: ATTEND Internal Medicine Hematology & Oncology
DX: C34.31 Malignant neoplasm of lower lobe, right bronchus or lung (principal)
CPT/HCPCS: 78815; A9552

== ENCOUNTER → 2021-12-12 | Outpatient (CLI) | payer MEDICARE, BC | END | disposition home or self-care (01) | LOC: LABWHC1 12:56 | PROVIDERS: ATTEND Psychiatry & Neurology Neurology | DX: Z20.822 Contact with and (suspected) exposure to COVID-19 (principal) | CPT/HCPCS: U0003; U0005 ==

== ENCOUNTER → 2022-03-28 | Outpatient (CLI) | payer OTHER ==
[2022-03-28 11:52] LABS: African American GFR (CKD) >90 (>60 ml/min/1.73 sqM); Blood Urea Nitrogen 16 mg/dL (9-20); Non-African American GFR(CKD) >90 (>60 ml/min/1.73 sqM)
--- NOTE | 2022-03-28 13:04 | CT ---
EXAMINATION TYPE: CT abdomen pelvis wo/w con CT DLP: 3226 mGycm, Automated exposure control for dose reduction was used. DATE OF EXAM: 03/28/2022 12:49 PM COMPARISON: PET/CT 12/09/2021, CT abdomen and pelvis 10/04/2021 CLINICAL INDICATION:Male, 51 years old with history of R112 nausea w/vomiting, R1011 ruq pain; Nausea , vomiting, RUQ stabbing pain under rib. Hx lung and tonsil ca. TECHNIQUE: Standard CT of the abdomen and pelvis following the administration of 70 cc of Isovue 30 0 IV contrast material and oral contrast. Coronal and sagittal reformats were performed. FINDINGS: LOWER CHEST: Elevation right hemidiaphragm. Trace right pleural effusion. Mediastinal shift to the ri ght secondary to right lung volume loss. Coronary arterial calcifications. No pericardial effusion. ABDOMEN LIVER: Unremarkable GALLBLADDER AND BILE DUCTS: The gallbladder is surgically absent. No biliary duct dilatation. PANCREAS: Unremarkable. SPLEEN: Scattered calcified granulomas. ADRENAL GLANDS: Unremarkable. KIDNEYS AND URETERS: No hydronephrosis. Bilateral nonobstructive renal calculi with largest on the ri ght measuring up to 5 mm. Cyst within the left kidney measuring up to 1.8 cm. PELVIS BLADDER: Unremarkable REPRODUCTIVE: Unremarkable. ABDOMEN & PELVIS STOMACH AND BOWEL: Stomach and duodenum are unremarkable. Enteric contrast reaches the cecum. No evid ence of bowel obstruction. PERITONEUM: No evidence of pneumoperitoneum or free fluid. VASCULATURE: Mild atherosclerotic calcifications are present throughout the abdominal aorta and its b ranches. No evidence of aortic aneurysm. MUSCULOSKELETAL: No acute osseous abnormalities. Mild disc degeneration changes are present throughou t the thoracolumbar spine. No aggressive osseous lesion. LYMPH NODES: No gross evidence for lymphadenopathy. SOFT TISSUE/ABDOMINAL WALL: Unremarkable IMPRESSION: 1. No acute abdominal/pelvic process or evidence of recurrence. 2. Trace right pleural effusion. 3. Sequelae of prior granulomatous disease. 4. Nonobstructive bilateral renal calculi.
== END | disposition home or self-care (01) ==
LOC: RADPROMAIN 10:11
PROVIDERS: ATTEND Internal Medicine Gastroenterology
DX: N20.0 Calculus of kidney (principal); R11.2 Nausea with vomiting, unspecified; N19 Unspecified kidney failure; J90 Pleural effusion, not elsewhere classified; R10.11 Right upper quadrant pain; Z85.818 Personal history of malignant neoplasm of other sites of lip, oral cavity, and pharynx
CPT/HCPCS: 82565; 84520; 74178; 36415; J1642; Q9967

== ENCOUNTER → 2022-05-26 | Outpatient (CLI) | payer OTHER ==
--- NOTE | 2022-05-26 09:46 | PE ---
EXAMINATION TYPE: PET CT fusion skull to thigh DATE OF EXAM: 05/26/2022 COMPARISON: Most recent prior PET/CT December 09, 2021 and older studies HISTORY: Lung and throat cancer progress study. Diagnosed June 2018 in the right lung and throat can cer summer 2019 with subsequent surgery. Completed radiation treatment to throat 2019. Currently unde rgoing immunotherapy. TECHNIQUE: Following the intravenous administration of 12.0 mCi of F-18 FDG, whole body images are p erformed from the skull base to the midthigh. Images are reviewed on the computer in the coronal, ax ial, and sagittal planes. Reconstructed rotating images are created on independent workstation and r eviewed on the computer. A localization and attenuation correction CT is performed in conjunction w ith the PET scan. Blood glucose level equals 132 SCAN: Subsequent Scan FINDINGS: SKULL BASE AND NECK: There is new mild hypermetabolic uptake left inferior cervical muscles, correla te for inflammatory etiology. No suspicious new abnormal hypermetabolic uptake. CHEST, MEDIASTINUM, AND HILAR REGION: Persistent right-sided volume loss with inferior surgical sutur es. Stable trace right basilar pleural effusion or thickening. No new suspicious hypermetabolic uptak e. ABDOMEN AND PELVIS: Normal excretion is present. No new areas of suspicious hypermetabolic uptake. N o new adrenal masses. OSSEOUS STRUCTURES: No new areas of abnormal hypermetabolic uptake. OTHER CT: Right subclavian Mediport catheter redemonstrated. Background mild to moderate underlying e mphysematous change is redemonstrated. Persistent moderate three-vessel coronary artery calcification . Calcified subcentimeter left hilar lymph node anteriorly axial image 89 redemonstrated. Cholecystectomy clips are redemonstrated. Several calcifications throughout the spleen presumed produ ct of old granulomatous disease are redemonstrated. Liver remains diffusely low dense consistent with diffuse fatty infiltration. Nonobstructing 6 mm calculus right kidney axial image 161 is redemonstra jordan. Stable 2 to 3 mm upper pole right renal calculus axial image 148. Bladder remains poorly distend ed with moderate concentric wall thickening, correlate clinically. A few right-sided pelvic phlebolit hs redemonstrated. Facet arthropathy lower lumbar spine. IMPRESSION: No suspicious hypermetabolic uptake to suggest active neoplastic recurrence. No significa nt change from most recent PET/CT.
== END | disposition home or self-care (01) ==
LOC: RADPETMAIN 07:32
PROVIDERS: ATTEND Internal Medicine Hematology & Oncology
DX: C34.31 Malignant neoplasm of lower lobe, right bronchus or lung (principal)
CPT/HCPCS: 78815; A9552

== ENCOUNTER → 2022-07-07 | Outpatient (CLI) | payer OTHER ==
--- NOTE | 2022-07-07 11:33 | CT ---
EXAMINATION TYPE: CT sinus wo con DATE OF EXAM: 07/07/2022 COMPARISON: None HISTORY: Chronic sinusitis CT DLP: 616 mGycm. Automated Exposure Control for Dose Reduction was Utilized. TECHNIQUE: CT scan of the sinuses is performed without contrast, axial images are obtained, coronal r eformatted images are also reviewed. FINDINGS: Visualized portion of mastoid air cells show no abnormal opacification. The globes are intact bilate rally. Nasal septal deviation. Mild mucosal thickening involving sphenoid sinus and left maxillary sinus. There is localized mucosal thickening involving the right maxillary sinus with occlusion of the right ostiomeatal complex. Left ostiomeatal complex remains patent. IMPRESSION: 1. There is very mild right maxillary and sphenoidal chronic sinusitis. Localized mucosal thickening does result in occlusion of the right ostiomeatal complex. No air-fluid levels or findings to suggest acute sinusitis.
== END | disposition home or self-care (01) ==
LOC: RADCTMAIN 11:02
PROVIDERS: ATTEND Internal Medicine
DX: J32.0 Chronic maxillary sinusitis (principal); J32.3 Chronic sphenoidal sinusitis; J34.89 Other specified disorders of nose and nasal sinuses
CPT/HCPCS: 70486

== ENCOUNTER → 2022-10-19 | Outpatient (CLI) | payer OTHER ==
[2022-10-19 15:22] LABS: ALT 28 U/L (10-49); AST 24 U/L (14-35); Albumin 4.4 d/dL (3.8-4.9); Albumin/Globulin Ratio 1.91 Ratio (1.60-3.17); Alkaline Phosphatase 110 U/L (41-126); Bilirubin, Conjugated <0.20 mg/dL (0.20-0.40); Bilirubin,Unconjugated >0 mg/dL (0.20-1.00); Globulin 2.3 d/dL (1.6-3.3); Total Bilirubin 0.2 mg/dL (0.3-1.2); Total Protein 6.7 d/dL (6.2-8.2)
[2022-10-20 01:05] LABS: Clam IgE <0.10 kU/L; Codfish IgE <0.10 kU/L; Egg White IgE <0.10 kU/L; Peanut IgE <0.10 kU/L; Scallop IgE <0.10 kU/L; Shrimp IgE <0.10 kU/L; Soybean IgE <0.10 kU/L; Walnut IgE (Food) <0.10 kU/L
== END | disposition home or self-care (01) ==
LOC: LABWHC1 10:18
PROVIDERS: ATTEND Nurse Practitioner Family
DX: B35.1 Tinea unguium (principal); J30.89 Other allergic rhinitis
CPT/HCPCS: 36415; 80076; 82785; 86003

== ENCOUNTER → 2022-11-10 | Outpatient (CLI) | payer OTHER ==
--- NOTE | 2022-11-10 12:47 | PE ---
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 Images are reviewed on the computer in the coronal, a xial, and sagittal planes. Reconstructed rotating images are created on independent workstation and reviewed on the computer. A non-contrast CT is performed in conjunction with the PET scan. Glucose level 119 mg/dL CT DLP: 661 mGycm, Automated exposure control for dose reduction was used. COMPARISON: CT 07/07/2022, PET/CT 05/26/2022 and dating back to 08/02/2018 FINDINGS: Mediastinal SUV mean is 1.6. Hepatic parenchyma SUV mean is 2.2. SKULL BASE AND NECK: * Posterior left nasopharynx asymmetric uptake max SUV 8.6 and was not represent the longus colli mu scle of the neck previously max SUV 2.7. * Subtle uptake within the right base of the tongue max SUV is 5.4 previously 2.4. * No FDG avid lymph nodes identified. CHEST, MEDIASTINUM, AND HILAR REGION: No suspicious radiotracer activity. ABDOMEN AND PELVIS: No suspicious radiotracer activity. MUSCULOSKELETAL STRUCTURES: No suspicious radiotracer activity. OTHER CT: Right subclavian Mediport catheter redemonstrated. Background mild to moderate underlying e mphysematous change is redemonstrated. Persistent moderate three-vessel coronary artery calcification . Post surgical changes to the right lung with suspected rightward shift of the mediastinum secondary to surgical change. There is calcified left hilar lymph node. Cholecystectomy clips are redemonstrated. Several calcifications throughout the spleen presumed produ ct of old granulomatous disease are redemonstrated. Hepatic steatosis. Nonobstructing 6 mm calculus right kidney axial is redemonstrated. Stable 2 to 3 m m upper pole right renal calculus axial image 148. Bladder remains poorly distended with moderate con centric wall thickening, correlate clinically. A few right-sided pelvic phleboliths redemonstrated. E lectronic device projects over the back with leads terminating in the posterior thecal sac. IMPRESSION: 1. Increasing uptake within the right base of the tongue. Direct visualization recommended. 2. Uptake within the left longus colli muscle /left adenoid region as increased from prior. Findings could represent muscle strain/infectious/inflammatory process, direct visualization recommended. Att ention follow-up imaging. 3. No evidence for abnormal uptake within the chest abdomen or pelvis.
== END | disposition home or self-care (01) ==
LOC: RADPETMAIN 06:36
PROVIDERS: ATTEND Internal Medicine Hematology & Oncology
DX: C76.0 Malignant neoplasm of head, face and neck (principal); K14.8 Other diseases of tongue
CPT/HCPCS: 78815; A9552

== ENCOUNTER → 2023-06-22 | Outpatient (CLI) | payer OTHER ==
--- NOTE | 2023-06-23 09:56 | PE ---
EXAMINATION TYPE: PET CT fusion skull to thigh DATE OF EXAM: 06/22/2023 CLINICAL INDICATION:Male, 52 years old with history of C34.31 Lung Ca; TECHNIQUE: Following the intravenous administration of 7.97 mCi of F-18 FDG, whole body images are performed from the skull base to the midthigh. Images are reviewed on the computer in the coronal, a xial, and sagittal planes. Reconstructed rotating images are created on independent workstation and reviewed on the computer. A non-contrast CT is performed in conjunction with the PET scan. Glucose level 116 mg/dL CT DLP: 1060 mGycm, Automated exposure control for dose reduction was used. COMPARISON: CT None, PET/CT 11/10/2022, FINDINGS: Mediastinal SUV mean is 2.4. Hepatic parenchyma SUV mean is 2.9. SKULL BASE AND NECK: 1. Scattered areas of uptake within the mucosa in the nasopharynx max 5.6 superiorly. On the left ba se the tongue max SUV 5.3 along the right lateral aspect of the right superior oral cavity max 6.6 wh ich is poorly visualized on prior. 2. No FDG avid lymph nodes identified. CHEST, MEDIASTINUM, AND HILAR REGION: * No suspicious radiotracer activity. * Moderate emphysema with suspected postsurgical changes to the right lung with rightward mediastina l shift. ABDOMEN AND PELVIS: No suspicious radiotracer activity. MUSCULOSKELETAL STRUCTURES: No suspicious radiotracer activity. OTHER CT: Right subclavian Mediport catheter redemonstrated. Background mild to moderate underlying e mphysematous change is redemonstrated. Persistent moderate three-vessel coronary artery calcification . Post surgical changes to the right lung with suspected rightward shift of the mediastinum secondary to surgical change. There is calcified left hilar lymph node. Cholecystectomy clips are redemonstrated. Several calcifications throughout the spleen presumed produ ct of old granulomatous disease are redemonstrated. Hepatic steatosis. Nonobstructing 6 mm calculus right kidney axial is redemonstrated. Stable 2 to 3 m m upper pole right renal calculus. Bladder remains poorly distended with moderate concentric wall thi ckening, correlate clinically. A few right-sided pelvic phleboliths redemonstrated. Electronic device projects over the back with leads terminating in the posterior thecal sac. IMPRESSION: 1. Scattered pharynx FDG activity which may be physiologic. The right base of lung uptake seen on pr ior is no longer definitively visualized. Resolution of uptake within the left longus colli muscle li anna representing muscle strain. 2. No evidence for FDG avid pulmonary nodule or mediastinal lymphadenopathy. 3. No evidence for abnormal uptake within the chest, abdomen or pelvis.
== END | disposition home or self-care (01) ==
LOC: RADPETMAIN 07:43
PROVIDERS: ATTEND Internal Medicine Hematology & Oncology
DX: C34.31 Malignant neoplasm of lower lobe, right bronchus or lung (principal)
CPT/HCPCS: 78815; A9552

== ENCOUNTER → 2024-06-12 | Outpatient (CLI) | payer OTHER ==
--- NOTE | 2024-06-15 10:41 | PE ---
EXAMINATION TYPE: PET CT fusion skull to thigh DATE OF EXAM: 06/12/2024 CLINICAL INDICATION:Male, 53 years old with history of C34.31 Lung ca; right lower lobe lung cancer TECHNIQUE: Following the intravenous administration of 11.0 mCi of F-18 FDG, whole body images are performed from the skull base to the Mid thigh. Images are reviewed on the computer in the coronal, axial, and sagittal planes. Reconstructed rotating images are created on independent workstation and reviewed on the computer. A non-contrast CT is performed in conjunction with the PET scan. Glucose level 107 mg/dL CT DLP: 1073 mGycm, Automated exposure control for dose reduction was used. COMPARISON: CT None, PET/CT 06/22/2023 dating back to 08/12/2018, MRI: None FINDINGS: Mediastinal SUV mean is 4.4. Hepatic parenchyma SUV mean is 2.1. SKULL BASE AND NECK: * Scattered areas of uptake within the mucosa in the pharynx max SUV on the right 4.5 previously 4.2 . No suspicious FDG activity. * No FDG avid lymph nodes identified. CHEST, MEDIASTINUM, AND HILAR REGION: * No suspicious radiotracer activity. * Moderate emphysema with suspected postsurgical changes to the right lung with rightward mediastina l shift. ABDOMEN AND PELVIS: No suspicious radiotracer activity. MUSCULOSKELETAL STRUCTURES: No suspicious radiotracer activity. OTHER CT: Right subclavian Mediport catheter redemonstrated. Background mild to moderate underlying e mphysematous change is redemonstrated. Persistent moderate three-vessel coronary artery calcification . Post surgical changes to the right lung with suspected rightward shift of the mediastinum secondary to surgical change. There is calcified left hilar lymph node. Cholecystectomy clips are redemonstrated. Several calcifications throughout the spleen presumed produ ct of old granulomatous disease are redemonstrated. Hepatic steatosis. Nonobstructing 6 mm calculus right kidney axial is redemonstrated. Stable 2 to 3 m m upper pole right renal calculus. Bladder remains poorly distended with moderate concentric wall thi ckening, correlate clinically. A few right-sided pelvic phleboliths redemonstrated. Electronic device projects over the back with leads terminating in the posterior thecal sac. IMPRESSION: 1. No evidence for recurrent disease. Suspected physiologic scattered activity in the oropharynx not significantly changed from prior. No evidence for FDG avid pulmonary nodule or mediastinal lymphaden opathy. 2. No evidence for abnormal uptake within the chest, abdomen or pelvis. [facility], , 06/15/2024 10:38 AM
== END | disposition home or self-care (01) ==
LOC: RADPETMAIN 14:10
PROVIDERS: ATTEND Internal Medicine Hematology & Oncology
DX: C34.31 Malignant neoplasm of lower lobe, right bronchus or lung (principal)
CPT/HCPCS: 78815; A9552